=== PATIENT | male | born 1935 | race Caucasian/White ===

== ENCOUNTER 2016-09-05 08:36 | Outpatient (CLI) | payer MEDICARE, OTHER ==
[~2016-09-05] VITALS: Ht 180.3 cm; Wt 105.9 kg
--- NOTE | ~2016-09-05 | HEMODYNAMI ---
PATIENT:JOSUÉ RAMON MEDICAL RECORD: [id number] : 33 LOCATION:[facility] [address] [facility]# [id number] ADMISSION DATE: 09/05/16 Generatedon:09/06/201613:01 Patient name: JOSUÉ RAMON Patient #: [id number] : 1935 Date of study: 09/06/2016 Page: Of Hemodynamic Procedure Report Patient Data Patient Demographics Procedure consent was obtained First Name: JOSUÉ Gender: Male Last Name: TRISTEN : 1935 Middle Initial: F Age: 81 year(s) Patient #: [id number] Race: SSN: [id number] Additional ID: [id number] Contact details Address: [address] [place] [address] [facility] State: [place] City: [place] Zip code: [address] Past Medical History Allergies: No known allergies Admission Admission Data Admission Date: 09/05/2016 Admission Time: 8:36 Arrival Date: 09/05/2016 Arrival Time: 11:00 Admit Source: Other Insurance Payor: Medicare Room #: D.2121 Height (in.): 71 BSA: 2.3 (m2) Height (cm.): 180.34 BMI: 34.17 (kg/m2) Weight (lbs.): 245 Weight (kg.): 111.13 Lab Results Lab Result Date: 09/05/2016 Lab Result Time: 0:00 Biochemistry Name Units Result Min Max BUN mg/dl 22 --(----)-* 7 18 Creatinine mg/dl 1.2 --(---*)-- 0.6 1.3 CBC Name Units Result Min Max Hemoglobin g/dl 14.1 --(*---)-- 13.5 17.5 Procedure Procedure Types Cath Procedure PCI Procedure Coronary Stent Initial Miscellaneous Procedures Moderate Sedation up to 15 minutes Procedure Description Procedure Date Procedure Date: 09/06/2016 Procedure Start Time: 12:42 Procedure End Time: 12:57 Procedure Staff Name Function Chintan Andres MD Performing Physician Juliann Sutton RN Nurse Erich Ventura RT Scrub Jesse Richards RT Monitor Procedure Data Cath Procedure Fluoroscopy Diagnostic fluoroscopy Total fluoroscopy Time: 2.8 time: 2.8 min min Diagnostic fluoroscopy Total fluoroscopy dose: 383 dose: 383 mGy mGy Contrast Material Contrast Material Type Amount (ml) Isovue 300 67 Entry Location Entry Primary Successful Side Size Upsize Upsize Entry Closure Succes sful Closure Location (Fr) 1 (Fr) 2 (Fr) Remarks Device Remarks Femoral Right 6 Fr 7 Fr Exoseal artery Short Short Estimated blood loss: 10 ml Procedure Complications No complications Procedure Medications Medication Administration Route Dosage Oxygen NC 2 l/min Heparin Flush Bag added to field 2 bags (1000units/500ml NS) Lidocaine 2% added to field 20 Versed I.V. 1 mg Fentanyl I.V. 50 mcg Heparin Bolus I.V. 4000 units Versed I.V. 1 mg Fentanyl I.V. 50 mcg Fentanyl I.V. 50 mcg Hemodynamics Rest BSA: 2.3 (m2) HGB: 14.1 (g/dl) O2 Consumption: Estimated: 275.22 (ml/min) O2 Con sumption indexed: Estimated:119.66 (ml/min/m) Heart Rate: 85 (bpm) Snapshots Pre Cath Intra NCS Post Cath Vital Signs Time Heart Resp SPO2 etCO2 RE5sunw NIBP (mmHg) Rhythm Pain Sedation Rate (ipm) (%) (mmHg) (mmHg) Status Level (bpm) 12:35:05 78 15 99 0 0 138/85(117) NSR 0 (11) 10(A) , No pain 12:39:14 82 20 98 0 0 132/89(111) NSR 0 (11) 10(A) , No pain 12:43:26 83 14 97 0 0 145/79(109) NSR 0 (11) 9(A) , No pain 12:47:39 86 16 95 0 0 147/86(142) NSR 0 (11) 9(A) , No pain 12:52:38 84 14 97 0 0 Measuring NSR 0 (11) 9(A) , No pain 12:53:48 85 9 97 0 0 136/94(117) NSR 0 (11) 9(A) , No pain Medications Time Medication Route Dose Verified Delivered Reason Notes Effectiveness by by 12:35:33 Oxygen NC 2 Chintan Juliann Per physician l/min Dmitry Sutton RN 12:35:41 Heparin Flush added 2 Chintan Woodson used for Bag to bags Dmitry Andres MD procedure (1000units/500ml field NS) 12:35:48 Lidocaine 2% added 20ml Chintan Woodson used for to vial Dmitry Andres MD procedure field 12:40:03 Versed I.V. 1 mg Chintan Juliann for sedation Dmitry Sutton RN 12:40:14 Fentanyl I.V. 50 Chintan Juliann for sedation mcg Dmitry Sutton RN 12:42:04 Versed I.V. 1 mg Chintan Juliann for sedation Dmitry Sutton RN 12:42:11 Fentanyl I.V. 50 Chintan Juliann for sedation mcg Dmitry Sutton RN 12:43:47 Heparin Bolus I.V. 4000 Chintan Juliann for dose units Dmitry Sutton RN anticoagulation verified wtih dr andres 12:44:57 Fentanyl I.V. 50 Chintan Juliann for sedation mcg Dmitry Sutton RN Procedure Log Time Note 12:10:51 Jesse Richards RT(R) sent for patient. Start room use. 12:15:39 Patient Height : 71 inches 12:15:40 Patient Weight : 245 lbs 12:15:52 Time tracking: Regular hours 12:15:56 Plan of Care:Hemodynamics will remain stable., Cardiac rhythm will remain stable., Comfort level will be maintained., Respiratory function will remain adequate., Patient/ family verbilizes understanding of procedure., Procedure tolerated without complication., Recovers from procedure without complications.. 12:27:28 Patient received from Pre/Post Procedure Room to CCL 1 Alert and oriented. Tansferred to table in Supine position. 12:27:30 Warm blankets applied, and gulshan hugger turned on for patient comfort. 12:27:30 Correct patient and procedure confirmed by team. 12:27:31 Signed procedure consent form obtained from patient. 12:27:32 ECG and BP/O2 sat monitors applied to patient. 12:33:58 Vital chart was started 12:35:33 Oxygen 2 l/min NC was given by Juliann [place] RN; Per physician; 12:35:41 Heparin Flush Bag (1000units/500ml NS) 2 bags added to field was given by Chintan Andres MD; used for procedure; 12:35:48 Lidocaine 2% 20ml vial added to field was given by Chintan Andres MD; used for procedure; 12:35:48 Baseline sample Acquired. 12:35:52 Rhythm: sinus rhythm 12:35:54 Full Disclosure recording started 12:35:58 H&P Date Dictated: 09/05/2016 Within 30 days and on chart., H&P Addendum completed by physician on day of procedure. (MUST COMPLETE FOR ALL OUTPATIENTS). 12:35:59 Pre-procedure instructions explained to patient. 12:36:00 Pre-op teaching completed and patient verbalized understanding. 12:36:01 Family in waiting room. 12:36:03 Patient NPO since Midnight. 12:36:05 Is the patient allergic to Iodine/contrast media? No. 12:37:16 Is patient on blood thinner?Yes 12:37:19 ACC The patient was administered the following blood thiners within the last 24 hours: ACCPlavix 12:37:21 Patient diabetic? Yes. 12:37:22 If diabetic: On Metformin? Yes 12:37:26 If on Metformin: Last Dose? 09/04/2016 12:37:30 Previous problem with sedation/anesthesia? No ? 12:37:31 Snore? Yes 12:37:33 Sleep apnea? No 12:37:34 Deviated septum? No 12:37:35 Opens mouth fully? Yes 12:37:36 Sticks out tongue? Yes 12:37:37 Airway obstruction? No ? 12:37:40 Dentures? No ? 12:37:43 Pre procedure: right dorsailis pedis pulse 1+ Palpable, but thready & weak; easily obliterated 12:37:45 Patient pain scale 0/10 ?. 12:37:50 IV patent on arrival in left forearm with 0.9% NaCl at [facility] 12:37:52 Lab results completed and on chart. 12:37:56 Right groin area was prepped with chlora-prep and draped in sterile fashion 12:37:57 Alarms reviewed by R. N. 12:37:57 Sharps counted by scrub and verified by R.N. 12:39:26 --------ALL STOP TIME OUT------ 12:39:27 Final Timeout: patient, procedure, and site verified with staff and physician. All members of the team are in agreement. 12:39:30 Right groin site verified by team. 12:39:37 Physical assessment completed. ASA score P 2 - A patient with mild systemic disease as per Chintan Andres MD. 12:39:40 Sedation plan: IV Moderate Sedation Versed, Fentanyl 12:40:03 Versed 1 mg I.V. was given by Juliann Sutton RN; for sedation; 12:40:14 Fentanyl 50 mcg I.V. was given by Juliann Sutton RN; for sedation; 12:42:03 Procedure started. 12:42:04 Versed 1 mg I.V. was given by Juliann Sutton RN; for sedation; 12:42:09 Local anesthetic to right femoral artery with Lidocaine 2% by Chintan Andres MD.INITIAL ACCESS ONLY 12:42:11 Fentanyl 50 mcg I.V. was given by Juliann Sutton RN; for sedation; 12:42:22 Zero performed for pressure channel P1 12:42:24 Zero performed for pressure channel P1 12:42:27 Zero performed for pressure channel P1 12:42:34 Use device set Femoral PCI 12:42:35 Tegaderm 4 x 4 opened to sterile field. 12:42:36 Acist Manifold opened to sterile field. 12:42:37 Acist Syringe opened to sterile field. 12:42:37 Acist Hand Control opened to sterile field. 12:42:38 Bag Decanter opened to sterile field. 12:42:38 Medline Cath Pack opened to sterile field. 12:42:39 Terumo 6Fr [place] Sheath opened to sterile field. 12:42:39 St Ron 260cm J .035 wire opened to sterile field. 12:43:15 Onofre Whisper J 300cm 0.014 guide wire opened to sterile field. 12:43:16 Stoke BasixCompak Inflation Kit opened to sterile field. 12:43:16 Medtronic Launcher 6Fr HS II SH guide catheter opened to sterile field. 12:43:41 A 6 Fr Short sheath was inserted into the Right Femoral artery 12:43:47 Heparin Bolus 4000 units I.V. was given by Juliann Sutton RN; for anticoagulation; dose verified wtih dr andres 12:44:02 ACC PCI Site: Clint has 90% stenosis. 12:44:04 ACC Pre-intervention CINDY Flow is 3. 12:44:11 6 Fr HS 2 SH guide catheter was inserted over the wire 12:44:57 Fentanyl 50 mcg I.V. was given by Juliann Sutton RN; for sedation; 12:45:44 Whisper wire advanced. 12:46:35 Wire advanced across lesion. 12:47:02 The Medtronic Integrity 3.5 X 22 stent was advanced then removed because of failure to cross lesion 12:47:03 Wire removed. 12:47:18 Terumo 7Fr [place] Sheath opened to sterile field. 12:47:18 Medtronic Launcher 7Fr AR 2.0 SH guide catheter opened to sterile field. 12:47:24 Guide Catheter removed. unable to get back-up support 12:47:55 Sheath upsized to a 7 Fr Short. 12:48:02 7 Fr AR 2 SH guide catheter was inserted over the wire 12:48:22 Stanton [employer]Co Choice PT Extra Support J 300cm .014 gu opened to sterile field. 12:48:29 Choice PT XS wire advanced. 12:49:15 Wire advanced across lesion. 12:50:03 Inflation Number: 1 A Medtronic Integrity 3.5 X 22 stent was prepped and advanced across the Dist RCA. The stent was deployed at 17 KATIE for 0:10 (min:sec). 12:50:37 Cordis 7Fr Exoseal opened to sterile field. 12:50:46 Stent catheter was removed intact over wire. 12:50:47 Wire removed. 12:50:48 Guide catheter removed. 12:51:13 Sheath removed intact; hemostasis achieved with Exoseal to the Right Femoral artery. 12:51:16 Procedure ended.(Physican Out) 12:53:48 Fluoroscopy time 02.80 minutes. 12:53:52 Flurop Dose total: 383 12:53:52 Fluoroscopy dose: 383 mGy 12:53:55 Contrast amount:Isovue 300 67ml. 12:53:57 Sharps counted by scrub and verified by R.N. 12:53:59 Insertion/operative site no bleeding no hematoma. 12:54:05 Post-op/insertion site Right Femoral artery dressed using a 4 x 4 and Tegaderm. 12:54:06 Post Procedure Pulses reassessed and unchanged 12:54:09 Post-procedure physical assessment completed. ASA score P 2 - A patient with mild systemic disease as per Chintan Andres MD. 12:54:12 Post procedure rhythm: unchanged. 12:54:13 Estimated blood loss: 10 ml 12:54:21 Post procedure instruction explained to patient.Patient verbalizes understanding. 12:54:21 Patient needs reinforcement of post procedure teaching. 12:54:33 Procedure type changed to Cath procedure, PCI procedure, Coronary Stent Initial, Miscellaneous Procedures, Moderate Sedation up to 15 minutes 12:54:37 Procedure Complication : No complications 12:54:59 Procedure and supply charges have been captured, reviewed, submitted and are correct. 12:56:03 Vital chart was stopped 12:56:04 See physician's report for complete and final results. 12:56:08 Report given to PCU. 12:56:28 Patient transfered to PCU with Bed. 12:57:05 Procedure ended. 12:57:05 Full Disclosure recording stopped 12:57:24 ACC-PCI Only Patient was given prescriptions, or instructed by Chintan Andres MD to start/continue the following medications upon discharge: Plavix 12:57:26 End room use (Document Last) Intervention Summary Intervention Notes Time ActionType Lesion and Equipment Action# Pressure Duration Attributes Used 12:47:02 Discard Medtronic Stent Integrity 3.5 X 22 stent 12:50:03 Place stent Dist RCA Medtronic 1 17 00:10 Integrity 3.5 X 22 stent Device Usage Item Name Manufacture Quantity Catalog Number [facility] Part Current [facility] al Lot# / Charge Number Stock Stock Serial# Code Tegaderm 4 1 [id number] [id number] [id number] 5 x 4 Acist Acist 1 52112 877682 585408 [id number] 5 Manifold [employer] Inc Acist Acist 1 53175 161473 624156 209783 20 Syringe Medical Systems Inc Acist Hand Acist 1 53265 029181 134070 933420 5 Control Medical [employer] Inc Bag Microtek 1 2002S 653493 81614 518258 5 InTown. Medline Cardinal 1 [id number] 540741 80862 397012 5 ADIKTIVO Terumo 6Fr Terumo 1 [id number] 482403 859442 485394 [address] Ron 1 749230 610359 974670 979141 30 260cm J .035 wire Onofre Onofre 1 [id number] 507849 383452 804995 5 Whisper J Vascular 300cm 0.014 guide wire [facility] 1 [id number] 721577 819574 061855 15 BasixCompak Medical Inflation Kit Medtronic Medtronic 1 [id number] 778161 19392 248424 1 Launcher 6Fr HS II SH guide catheter Medtronic Medtronic 1 [id number] 245781 488212 6 [id number] Integrity 3.5 X 22 stent Terumo 7Fr Terumo 1 [id number] 071615 349370 023518 5 [place] Sheath Medtronic Medtronic 1 [id number] 842731 709391 301926 0 Launcher 7Fr AR 2.0 SH guide catheter Stanton Sci Stanton 1 [id number] 281252 822683 594099 5 Choice PT Scientific Extra Support J 300cm .014 gu Cordis 7Fr Cardinal 1 [id number] 914362 822662 356872 5 [facility] Signature Audit [place] Stage Time Signature Unsigned Intra-Procedure 09/06/2016 Jesse Richards 1:01:15 PM RT(R) Signatures Monitor : Jesse Richards RT Signature : Date : Time : [facility] [address] [place] [address]
--- NOTE | ~2016-09-05 | HEMODYNAMI ---
PATIENT:JOSUÉ RAMON MEDICAL RECORD: [id number] : 33 LOCATION:[facility] ADMISSION DATE: 09/05/16 Generatedon:09/05/201612:04 Patient name: JOSUÉ RAMON Patient #: [id number] : 1935 Date of study: 09/05/2016 Page: Of Hemodynamic Procedure Report Patient Data Patient Demographics Procedure consent was obtained First Name: JOSUÉ Gender: Male Last Name: TRISTEN : 1935 [facility] Initial: F Age: 81 year(s) Patient #: [id number] Race: SSN: [id number] Additional ID: [id number] Contact details Address: [address] [place] [address] [facility] State: [place] City: [place] Zip code: [address] Past Medical History Allergies: No known allergies Admission Admission Data Admission Date: 09/05/2016 Admission Time: 8:36 Arrival Date: 09/05/2016 Arrival Time: 11:00 Admit Source: Other Insurance Payor: Medicare Height (in.): 71 BSA: 2.3 (m2) Height (cm.): 180.34 BMI: 34.17 (kg/m2) Weight (lbs.): 245 Weight (kg.): 111.13 Lab Results Lab Result Date: 09/05/2016 Lab Result Time: 0:00 Biochemistry Name Units Result Min Max BUN mg/dl 22 --(----)-* 7 18 Creatinine mg/dl 1.2 --(---*)-- 0.6 1.3 CBC Name Units Result Min Max Hemoglobin g/dl 14.1 --(*---)-- 13.5 17.5 Procedure Procedure Types Cath Procedure Diagnostic Procedure LHC LH w/Coronaries PCI Procedure Coronary Stent Initial Miscellaneous Procedures Moderate Sedation up to 15 minutes Procedure Description Procedure Date Procedure Date: 09/05/2016 Procedure Start Time: 11:39 Procedure End Time: 12:00 Procedure Staff Name Function Chintan Andres MD Performing Physician Billie Quijano RT Scrub Rico Taylor RN Nurse Dalia Enriquez RT Monitor Procedure Data Cath Procedure Fluoroscopy Diagnostic fluoroscopy Total fluoroscopy Time: 6.7 time: 6.7 min min Diagnostic fluoroscopy Total fluoroscopy dose: dose: 1080 mGy 1080 mGy Contrast Material Contrast Material Type Amount (ml) Isovue 300 76 Entry Location Entry Primary Successful Side Size Upsize Upsize Entry Closure Valdovinos ccessful Closure Location (Fr) 1 (Fr) 2 (Fr) Remarks Device Remarks Radial Right 6 Fr Mechanical TR band artery Short Compression Estimated blood loss: 10 ml Procedure Complications No complications Procedure Medications Medication Administration Route Dosage Oxygen NC 2 l/min Lidocaine 2% added to field 20 Heparin Flush Bag added to field 2 bags (1000units/500ml NS) 0.9% NaCl I.V. 100 ml/hr Heparin Bolus I.V. 4000 units Integrilin (Bolus I.V. 10.2 ml 2mg/ml) Versed I.V. 1 mg Fentanyl I.V. 50 mcg Versed I.V. 1 mg Fentanyl I.V. 50 mcg Plavix P.O. 600 mg Hemodynamics Rest BSA: 2.3 (m2) HGB: 14.1 (g/dl) O2 Consumption: Estimated: 267.66 (ml/min) O2 Con sumption indexed: Estimated:116.37 (ml/min/m) Heart Rate: 76 (bpm) Snapshots Pre Cath Intra NCS Post Cath Vital Signs Time Heart Resp SPO2 NIBP (mmHg) Rhythm Pain Sedation Rate (ipm) (%) Status Level (bpm) 11:25:19 79 17 95 108/70(87) NSR 0 (11) 10(A) , No pain 11:30:19 82 15 96 116/79(91) NSR 0 (11) 10(A) , No pain 11:34:22 90 18 97 109/80(90) NSR 0 (11) 10(A) , No pain 11:38:28 72 21 96 123/75(105) NSR 0 (11) 10(A) , No pain 11:42:38 94 16 97 101/73(82) NSR 0 (11) 9(A) , No pain 11:46:38 87 15 94 119/84(101) NSR 0 (11) 9(A) , No pain 11:50:47 90 15 94 114/77(93) NSR 0 (11) 9(A) , No pain 11:54:53 80 15 96 112/79(92) NSR 0 (11) 10(A) , No pain 11:59:34 83 16 98 121/83(109) NSR 0 (11) 10(A) , No pain Medications Time Medication Route Dose Verified Delivered Reason Notes Effectiveness by by 11:30:11 Oxygen NC 2 Chintan Gómez used for l/min Dmitry Taylor RN procedure 11:30:20 Lidocaine 2% added 20ml Chintan Woodson for local to vial Dmitry Andres MD anesthetic field 11:30:30 Heparin Flush added 2 Chintan Chintan used for Bag to bags Dmitry Andres MD procedure (1000units/500ml field NS) 11:30:40 0.9% NaCl I.V. 100 Chintan Gómez Per physician ml/hr Dmitry Taylor RN 11:34:22 Versed I.V. 1 mg Chintan Gómez for sedation Dmitry Taylor RN 11:34:29 Fentanyl I.V. 50 Chintan Gómez for sedation mcg Dmitry Taylor RN 11:39:33 Versed I.V. 1 mg Chintan Gómez for sedation Dmitry Taylor RN 11:39:37 Fentanyl I.V. 50 Chintan Gómez for sedation mcg Dmitry Taylor RN 11:47:16 Heparin Bolus I.V. 4000 Chintan Gómez for verifi ed units Dmitry Taylor RN anticoagulation with dr andres 11:49:26 Integrilin I.V. 10.2 Chintan Gómez for Wasted (Bolus 2mg/ml) ml Dmitry Taylor RN antiplatelet 9.8 ml therapy of vial 12:02:22 Plavix P.O. 600 Chintan Gómez for mg Dmitry Taylor RN antiplatelet therapy Procedure Log Time Note 11:09:28 Informed consent obtained and on chart 11:09:39 Diagnostic Cath Status : Elective 11:10:07 Rico Taylor RN sent for patient. Start room use. 11:10:08 Time tracking: Regular hours 11:10:12 Plan of Care:Hemodynamics will remain stable., Cardiac rhythm will remain stable., Comfort level will be maintained., Respiratory function will remain adequate., Patient/ family verbilizes understanding of procedure., Procedure tolerated without complication., Recovers from procedure without complications.. 11:10:47 Patient Height : 180.34 inches 11:10:47 Admit Source: Other 11:10:56 Patient Weight : 111.13 lbs 11:10:56 Insurance Payor : Medicare 11:11:02 Arrival Date: 09/05/2016 11:00:00 AM 11:14:53 H&P Date Dictated: 08/16/2016 Within 30 days and on chart., H&P Addendum completed by physician on day of procedure. (MUST COMPLETE FOR ALL OUTPATIENTS). 11:18:18 Patient received from Pre/Post Procedure Room to CCL 2 Alert and oriented. Tansferred to table in Supine position. 11:18:19 Warm blankets applied, and gulshan hugger turned on for patient comfort. 11:18:19 Correct patient and procedure confirmed by team. 11:18:20 ECG and BP/O2 sat monitors applied to patient. 11:20:34 Family in waiting room. 11:20:38 Pre-procedure instructions explained to patient. 11:20:39 Pre-op teaching completed and patient verbalized understanding. 11:20:42 Patient NPO since Midnight. 11:21:15 Patient allergic to No known allergies 11:21:19 Is the patient allergic to Iodine/contrast media? No. 11:21:32 Is patient on blood thinner?Yes 11:21:35 ACC The patient was administered the following blood thiners within the last 24 hours: ACCAspirin 11:21:43 Snore? Yes 11:21:56 Sleep apnea? No 11:22:11 Patient diabetic? Yes. 11:22:15 If on Metformin: Last Dose? 09/04/2016 11:22:17 If diabetic: On Metformin? Yes 11:22:42 Dentures? Yes ? 11:22:59 IV patent on arrival in left forearm with 0.9% NaCl at O. 11:23:21 Right Radial & Right Groin area was prepped with chlora-prep and draped in sterile fashion 11:23:22 Sharps counted by scrub and verified by R.N. 11:23:23 Physician paged 11:23:56 Use device set Radial Dx 11:23:57 Acist Syringe opened to sterile field. 11:23:58 Medline Cath Pack opened to sterile field. 11:23:59 Bag Decanter opened to sterile field. 11:24:00 Terumo 6Fr Slender Glidesheath opened to sterile field. 11:24:00 St Ron 260cm J .035 wire opened to sterile field. 11:24:01 Acist Hand Control opened to sterile field. 11:24:02 Acist Manifold opened to sterile field. 11:24:03 Tegaderm 4 x 4 opened to sterile field. 11:24:15 Vital chart was started 11::18 Baseline sample Acquired. ::24 Rhythm: sinus rhythm 11::26 Full Disclosure recording started : Lab Result : Creatinine 1.2 mg/dl :: Lab Result : BUN 22 mg/dl :: Lab Result : Hemoglobin 14.1 g/dl 11::34 Lab results completed and on chart. 11:30:11 Oxygen 2 l/min NC was given by Rico Taylor RN; used for procedure; 11:30:20 Lidocaine 2% 20ml vial added to field was given by Chintan Andres MD; for local anesthetic; 11:30:30 Heparin Flush Bag (1000units/500ml NS) 2 bags added to field was given by Chintan Andres MD; used for procedure; 11:30:40 0.9% NaCl 100 ml/hr I.V. was given by Rico Taylor RN; Per physician; 11:32:07 Physician arrived 11:33:11 --------ALL STOP TIME OUT------ 11:33:12 Final Timeout: patient, procedure, and site verified with staff and physician. All members of the team are in agreement. 11:33:14 Right Radial & Right Groin site verified by team. 11:33:18 Physical assessment completed. ASA score P 2 - A patient with mild systemic disease as per Chintan Andres MD. 11:33:21 Sedation plan: IV Moderate Sedation Versed, Fentanyl 11:34:22 Versed 1 mg I.V. was given by Rico Taylor RN; for sedation; :34:29 Fentanyl 50 mcg I.V. was given by Rico Taylor RN; for sedation; 11:36:18 Zero performed for pressure channel P1 11:38:57 Procedure started. 11:39:03 Local anesthetic to right radial artery with Lidocaine 2% by Chintan Andres MD.INITIAL ACCESS ONLY 11:39:33 Versed 1 mg I.V. was given by Rico Taylor RN; for sedation; 11:39:33 A 6 Fr Short sheath was inserted into the Right Radial artery 11:39:37 Fentanyl 50 mcg I.V. was given by Rico Taylor RN; for sedation; 11:41:53 NO CHARGE cordis radial cath advanced 11:42:44 LV gram done using MENARD 11:42:47 LV angiography performed. 11:43:05 EF : 55 % 11:43:27 RCA angiography performed. 11:43:43 Catheter removed. 11:44:43 Cordis 6FR XBLAD 3.5 guide catheter opened to sterile field. 11:44:57 LCA angiography performed. 11:45:13 Proceeding to intervention. 11:45:57 Merit BasixCompak Inflation Kit opened to sterile field. 11:46:33 Onofre Whisper J 300cm 0.014 guide wire opened to sterile field. 11:46:34 Onofre Whisper J 300cm 0.014 guide wire opened to sterile field. 11:47:16 Heparin Bolus 4000 units I.V. was given by Rico Taylor RN; for anticoagulation; verified with dr andres 11:47:37 6 Fr XBLAD 3.5 guide catheter was inserted over the wire 11:47:41 Whisper wire advanced. 11:48:29 Wire advanced across lesion. 11:49:26 Integrilin (Bolus 2mg/ml) 10.2 ml I.V. was given by Rico Taylor RN; for antiplatelet therapy; Wasted 9.8 ml of vial 11:52:06 Inflation Number: 1 A Medtronic Resolute 2.25 X 14 stent was prepped and advanced across the 1st Diag. The stent was deployed at 17 KATIE for 0:10 (min:sec). 11:52:29 Stent balloon re-inserted over wire. 11:52:48 balloon advanced to LAD. 11:53:23 Inflation number: 1 The stent balloon was then re-inflated across the Prox LAD to 17 KATIE for 0:10 (min:sec). 11:53:40 Inflation number: 2 The stent balloon was then re-inflated across the Prox LAD to 13 KATIE for 0:10 (min:sec). 11:53:59 Inflation number: 3 The stent balloon was then re-inflated across the Prox LAD to 19 KATIE for 0:00 (min:sec). 11:54:28 Balloon removed over the wire. 11:56:18 Inflation Number: 4 A Medtronic Resolute 2.5 X 18 stent was prepped and advanced across the Prox LAD. The stent was deployed at 13 KATIE for 0:10 (min:sec). 11:57:17 Wire removed. 11:57:18 Guide catheter removed. 11:58:42 Terumo TR Band Standard opened to sterile field. 11:58:59 Sheath removed intact; hemostasis achieved with Mechanical Compression to the Right Radial artery. 11:59:03 Procedure ended.(Physican Out) 11:59:18 Fluoroscopy time 06.70 minutes. 11:59:26 Fluoroscopy dose: 1080 mGy 11:59:26 Flurop Dose total: 1080 11:59:37 Contrast amount:Isovue 300 76ml. 11:59:47 Sharps counted by scrub and verified by R.N. 11:59:51 TR band inflated with 12cc of air. 11:59:57 Insertion/operative site no bleeding no hematoma. 12:00:00 Post Procedure Pulses reassessed and unchanged 12:00:04 Post procedure rhythm: unchanged. 12:00:07 Estimated blood loss: 10 ml 12:00:09 Post procedure instruction explained to patient.Patient verbalizes understanding. 12:00:22 Procedure type changed to Cath procedure, Diagnostic procedure, LHC, LHC w/Coronaries, PCI procedure, Coronary Stent Initial, Miscellaneous Procedures, Moderate Sedation up to 15 minutes 12:00:23 Procedure and supply charges have been captured, reviewed, submitted and are correct. 12:00:45 Procedure Complication : No complications 12:00:47 Vital chart was stopped 12:00:48 See physician's report for complete and final results. 12:00:51 Report given to Med II. 12:00:54 Patient transfered to Med II with Bed. 12:00:56 Procedure ended. 12:00:56 Full Disclosure recording stopped 12::56 End room use (Document Last) 12:02:22 Plavix 600 mg P.O. was given by Rico Taylor RN; for antiplatelet therapy; Intervention Summary Intervention Notes Time ActionType Lesion and Equipment Action# Pressure Duration Attributes Used 11:52:06 Place stent 1st Diag Medtronic 1 17 00:10 Resolute 2.25 X 14 stent 11:53:23 Reinflate Prox LAD Medtronic 1 17 00:10 stent Resolute balloon 2.25 X 14 stent 11:53:40 Reinflate Prox LAD Medtronic 2 13 00:10 stent Resolute balloon 2.25 X 14 stent 11:53:59 Reinflate Prox LAD Medtronic 3 19 00:00 stent Resolute balloon 2.25 X 14 stent 11:56:18 Place stent Prox LAD Medtronic 4 13 00:10 Resolute 2.5 X 18 stent Device Usage Item Name Manufacture Quantity Catalog Hospital Part Current Minimal Lot# / Number Charge Number Stock Stock Serial# Code Acist Acist 1 [id number] [id number] 100044 089125 20 Syringe Medical Systems Inc Medline Cardinal 1 [id number] 10374 174291 5 Cath Pack Health Bag Microtek 1 2002S 583535 71514 874000 5 Ganos Inc. Terumo 6Fr Terumo 1 [id number] 530466 083121 966454 [address] Ron St Ron 1 707134 101746 836252 506398 30 260cm J .035 wire Acist Hand Acist 1 89838 624626 574780 735640 5 [facility] Medical Systems Inc Acist Acist 1 25316 536513 380750 355357 5 Marquee [employer] Inc Medical Systems Inc Tegaderm 4 3M 1 1626W 600506 680070 769545 5 x 4 Cordis 6FR Cardinal 1 [id number] 254555 802560 336701 10 XBLAD 3.5 Health guide catheter Merit Merit 1 [id number] 530170 117527 122357 15 BasixCommdk Medical Inflation Kit Onofre Onofre 2 [id number] 717404 323024 697368 5 Whisper J Vascular 300cm 0.014 guide wire Medtronic Medtronic 1 [id number] 214454 043153 6 [id number] Resolute 2.25 X 14 stent Medtronic Medtronic 1 [id number] 338401 161010 0 [id number] Resolute 2.5 X 18 stent Terumo TR Terumo 1 [id number] 458224 737363 155554 40 Band Standard Signature Audit [place]enn[place] Stage Time Signature Unsigned Intra-Procedure 09/05/2016 Dalia Enriquez 12:04:21 PM RT(R) Signatures Monitor : Dalia Enriquez Signature : RT Date : Time : [place] [id number]
[~2016-09-05 08:36] MED LIST: ASPIRIN EC81 M1 PO; FLOMAX0.4 MG PO; GEMFIBROZIL600 MG PO; GLUCOPHAGE1000 MG PO
[2016-09-05] MEDS ORDERED: TENORMIN50 MG PO (09:05)
[2016-09-05] MEDS ORDERED: PROTONIX40 MG PO (09:06)
[2016-09-05] MEDS ORDERED: LISINOPRIL10 MG PO (09:06)
[2016-09-05 09:09] VITALS: BP 125/80; BMI 34.2
[2016-09-05 09:25] LABS: BASOPHILS 0.3 % (0.0-2.0); EOSINOPHILS 3.9 % (0-7); HEMATOCRIT 42.6 % (42.0-54.0); HEMOGLOBIN 14.1 g/dL (13.5-17.5); IMMATURE GRANULOCYTES 0.7 % (0-5); LYMPHOCYTES 31.2 % (15-50); MCH 31.2 pg (26.0-34.0); MCHC 33.1 g/dL (31.0-37.0); MCV 94.2 fL (80.0-100.0); MEAN PLATELET VOLUME 10.3 fL (7.4-10.4); MONOCYTES 11.7 % (2-11); NEUTROPHILS 52.2 % (40-80); RBC 4.52 10x6/uL (4.20-6.10); RDW 13.6 % (11.5-14.5); WBC 7.2 10x3/uL (4.8-10.8)
[2016-09-05 09:27] LABS: PLATELET COUNT 209 10x3/uL (130-400)
[2016-09-05 09:44] LABS: ANION GAP 14.1 mmol/L (8-16); CALCIUM 9.2 mg/dL (8.5-10.1); CARBON DIOXIDE 27.3 mmol/L (21.0-32.0); CREATININE - SERUM 1.2 mg/dL (0.6-1.3); POTASSIUM - SERUM 4.4 mmol/L (3.5-5.1)
--- NOTE | 2016-09-05 12:31 | NUR ---
TRANSFER FROM LABEL PRINTER. VS WNL. RIGHT WRIST STABLE WITH TR BAND INTACT. WILL MONITOR.
[2016-09-05 13:11] VITALS: BP 111/67; Ht 180.3 cm; Wt 105.9 kg
[2016-09-05 16:01] VITALS: BP 144/75
--- NOTE | 2016-09-05 16:12 | NUR ---
TR BAND DCD WITHOUT BLEEDING OR HEMATOMA NOTED. WILL MONITOR.
--- NOTE | 2016-09-05 19:19 | NUR ---
RECEIVED REPORT, 2L, [id number], [id number], DENIES ANY NEEDS, BED IS LOW, SRX2,CALL LIGHT IN REACH, WILL CONTINUE TO MONITOR
[2016-09-05 20:36] VITALS: BP 154/72
--- NOTE | 2016-09-05 23:38 | NUR ---
MACHINE MILKER AT BEDSIDE FOR VS, NEEDS ADDRESSED AT THIS TIME. CALL LIGHT IN REACH. CONT TO MONITOR.
[2016-09-06 01:19] VITALS: BP 141/75
[2016-09-06 05:06] VITALS: BP 165/96
--- NOTE | 2016-09-06 05:46 | NUR ---
PT HAS BEEN NPO SINCE MIDNIGHT, DENIES ANY NEEDS, CALL LIGHT IN REACH
[2016-09-06 08:12] VITALS: BP 146/83
[2016-09-06 12:14] VITALS: BP 153/92
--- NOTE | 2016-09-06 12:19 | NUR ---
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
--- NOTE | 2016-09-06 13:22 | NUR ---
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 VS WNL. RIGHT GROIN STABLE WITHOUT BLEEDING OR HEMATOMA NOTED. WILL MONITOR.
[2016-09-06] MEDS ORDERED: PLAVIX75 MG PO (13:40)
--- NOTE | 2016-09-06 16:47 | OP ---
PATIENT NAME: JOSUÉ RAMON MEDICAL RECORD: [id number] :33 LOCATION:D.M2 D.2121 ADMISSION DATE: SURGEON: DANUTA HERNANDEZ MD DATE OF OPERATION: 09/05/2016 PROCEDURES: 1. PTCA stent LAD. 2. PTCA stent LAD diagonal. 3. Left heart catheterization. 4. Selective coronary angiography. 5. Left ventriculogram. INDICATION: Angina and coronary artery disease. PROCEDURE IN DETAIL: After informed consent was obtained and after detailed explanation of risks, benefits as well as alternative therapies, the patient elected to proceed with angiogram and angioplasty. The right radial area was prepped and draped in normal sterile fashion. Right radial artery was cannulated via modified Seldinger technique with placement of 6-Spanish sheath. All catheters exchanged through this sheath. FINDINGS: The left ventriculogram was performed in standard 30-degree MENARD view, reveals preserved cardiac wall motion, ejection fraction 50%. SELECTIVE CORONARY ANGIOGRAPHY: 1. Left main showed no significant angiographic disease. 2. Left anterior descending as well as diagonal, both at 80% stenosis proximally. 3. Left circumflex has 90% stenosis in the mid vessel. 4. Right coronary has 80% to 90% stenosis times 2 in the mid and distal vessel. PTCA STENT OF THE LAD AND LAD DIAGONAL: The LAD diagonal was addressed with a 2.25 x 14 mm Resolute and the LAD with a 2.5 x 18 mm Resolute. Result was 0% residual stenosis. OVERALL IMPRESSION: Successful percutaneous transluminal coronary angioplasty stent of the left anterior descending and left anterior descending diagonal going from 80+ percent initial stenosis to 0% residual. PLAN: PTCA stent of the RCA and left circumflex in the near future in a staged fashion. 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
--- NOTE | 2016-09-06 16:59 | NUR ---
BED REST UP. GROIN STABLE. IV AND TELEMETRY DCD. DC PLANS GIVEN. UNDERSTANDING VOICED. ESCORTED TO CAR BY W/C.
--- NOTE | 2016-09-06 17:23 | NUR ---
ESCORTED TO CAR BY W/C.
--- NOTE | 2016-09-19 10:08 | OP ---
PATIENT NAME: JOSUÉ RAMON MEDICAL RECORD: [id number] :33 LOCATION:D.CAT ADMISSION DATE: SURGEON: DANUTA HERNANDEZ MD DATE OF OPERATION: 09/06/2016 PROCEDURES: 1. PTCA stent RCA. 2. Selective coronary angiography. INDICATION: Angina and coronary artery disease. PROCEDURE IN DETAIL: After informed consent was obtained and after a detailed explanation of the risks, benefits as well as alternative therapies, the patient elected to proceed with angiogram and angioplasty. The right femoral area was prepped and draped in normal sterile fashion. Right femoral artery was cannulated via modified Seldinger technique with placement of a 7-Croatian sheath. All catheters exchanged through this sheath. FINDINGS: Left ventriculogram was performed in standard 30-degree MENARD view, reveals good cardiac wall motion throughout all segments. The right coronary has 80%-90% stenosis distally, it was addressed with a 3.5 x 22 mm Integrity stent. Result was 0% residual stenosis. OVERALL IMPRESSION: Successful percutaneous transluminal coronary angioplasty stent of the RCA going from 80% to 90% initial stenosis to 0% residual. TRANSINT:[id number] Voice Confirmation ID: [id number] DOCUMENT ID: [id number] DANUTA HERNANDEZ MD at 1008 CC: [id number] DICTATION DATE: 09/06/16 1254 BUTTER GRADER: 09/06/164 [facility] CLI 09/06/16 [place] [id number]
--- NOTE | 2016-09-19 10:08 | DS ---
PATIENT:JOSUÉ RAMON :33 MEDICAL RECORD: [id number] DISCHARGE SUMMARY ADMISSION DATE: 09/05/16 DISCHARGE DATE: 09/06/16 DISCHARGE DIAGNOSES: 1. Angina. 2. Coronary artery disease. 3. Percutaneous transluminal coronary angioplasty stent left anterior descending and right coronary artery this admission. HOSPITAL COURSE: This is a gentleman who presents with anginal symptomatology, found to have 3-vessel coronary artery disease, underwent successful PTCA stent of above territories, had no further chest pain and was discharged home with the addition of aspirin and Plavix to his medical regimen. We will follow up with [facility] in 1 month. TRANSINT:[id number] Voice Confirmation ID: [id number] DOCUMENT ID: [id number] DANUTA HERNANDEZ MD at 1008 CC: [id number] DICTATION DATE: 09/06/16 1252 VICE PRESIDENT OF SOFTWARE ENGINEERING: 09/07/16 0338 [facility] CLI 09/06/16 [place] [id number] [place] [address]
== END 2016-09-06 17:24 | disposition home or self-care (01) ==
LOC: D.CATH 08:36 → D.M2 08:36 → D.CATH 11:00 → D.M2 12:19 → D.CATH 09-06 17:24
PROVIDERS: Internal Medicine Interventional Cardiology
DX: I25.119 Atherosclerotic heart disease of native coronary artery with unspecified angina pectoris (principal)
CPT/HCPCS: 93458; 92928; C9600; C9601

== ENCOUNTER 2016-09-16 08:43 | Outpatient (CLI) | payer MEDICARE, OTHER ==
[~2016-09-16] VITALS: Ht 180.3 cm; Wt 111.4 kg
--- NOTE | ~2016-09-16 | HEMODYNAMI ---
PATIENT:JOSUÉ RAMON MEDICAL RECORD: [id number] : 33 LOCATION:[facility] ADMISSION DATE: 09/16/16 Generatedon:09/16/201612:37 Patient name: JOSUÉ RAMON Patient #: [id number] : 1935 Date of study: 09/16/2016 Page: Of Hemodynamic Procedure Report Patient Data Patient Demographics Procedure consent was obtained First Name: JOSUÉ Gender: Male Last Name: TRISTEN : 1935 [facility] Initial: F Age: 81 year(s) Patient #: [id number] Race: SSN: [id number] Additional ID: [id number] Contact details Address: [address] [place] [address] [facility] State: [place] City: [place] Zip code: [address] Past Medical History Allergies: No known allergies Admission Admission Data Admission Date: 09/16/2016 Admission Time: 8:43 Lab Results Lab Result Date: 09/16/2016 Lab Result Time: 0:00 Biochemistry Name Units Result Min Max Creatinine mg/dl 1.4 --(----)*- 0.6 1.3 CBC Name Units Result Min Max Hemoglobin g/dl 14.2 --(*---)-- 13.5 17.5 Procedure Procedure Types Cath Procedure PCI Procedure Coronary Stent Initial Miscellaneous Procedures Moderate Sedation up to 30 minutes Procedure Description Procedure Date Procedure Date: 09/16/2016 Procedure Start Time: 12:16 Procedure End Time: 12:37 Procedure Staff Name Function Chintan Andres MD Performing Physician Mauricio Dubois RT Scrub Rico Taylor RN Nurse Mary Apple RT Monitor Procedure Data Cath Procedure Fluoroscopy Diagnostic fluoroscopy Total fluoroscopy dose: dose: 860.81 mGy 860.81 mGy Contrast Material Contrast Material Type Amount (ml) Isovue 300 76 Entry Location Entry Primary Successful Side Size Upsize Upsize Entry Closure Succes sful Closure Location (Fr) 1 (Fr) 2 (Fr) Remarks Device Remarks Femoral Right 6 Fr Exoseal artery Short Estimated blood loss: 10 ml Procedure Complications No complications Procedure Medications Medication Administration Route Dosage Oxygen NC 2 l/min Lidocaine 2% added to field 20 Heparin Flush Bag added to field 2 bags (1000units/500ml NS) 0.9% NaCl I.V. 100 ml/hr Versed I.V. 1 mg Fentanyl I.V. 50 mcg Radial Cocktail I.A. 1 syringe (Verapomil 2mg/Nitro 400mcg/Heparin 1500units) Versed I.V. 1 mg Fentanyl I.V. 50 mcg Versed I.V. 1 mg Fentanyl I.V. 50 mcg Heparin Bolus I.V. 4000 units Fentanyl I.V. 50 mcg Hemodynamics Rest Pre Cath Intra NCS Post Cath Vital Signs Time Heart Resp SPO2 etCO2 HG4gtsg NIBP (mmHg) Rhythm Pain Sedation Rate (ipm) (%) (mmHg) (mmHg) Status Level (bpm) 12:06:01 72 18 98 0 0 120/66(99) NSR 0 (11) 10(A) , No pain 12:10:13 71 17 97 0 0 128/65(104) NSR 0 (11) 10(A) , No pain 12:14:25 76 18 97 0 0 122/78(104) NSR 0 (11) 10(A) , No pain 12:18:31 75 16 99 0 0 131/85(100) NSR 0 (11) 9(A) , No pain 12:22:43 83 16 96 0 0 122/79(115) NSR 0 (11) 9(A) , No pain 12:26:47 84 18 95 0 0 111/84(108) NSR 0 (11) 9(A) , No pain 12:31:33 92 17 95 0 0 118/73(112) NSR 0 (11) 9(A) , No pain 12:33:57 88 16 96 0 0 120/76(97) NSR 0 (11) 10(A) , No pain Medications Time Medication Route Dose Verified Delivered Reason Note s Effectiveness by by 12:04:31 Oxygen NC 2 l/min Chintan Gómez used for Dmitry Taylor health professional 12:04:38 Lidocaine 2% added 20ml Chintan Woodson for local to vial Dmitry Andres MD anesthetic field 12:04:44 Heparin Flush added 2 bags Chintan Woodson used for Bag to Dmitry Andres MD procedure (1000units/500ml field NS) 12:04:54 0.9% NaCl I.V. 100 Chintan Gómez Per physician ml/hr Dmitry Taylor RN 12:13:42 Versed I.V. 1 mg Chintan Gómez for sedation Dmitry Taylor RN 12:13:48 Fentanyl I.V. 50 mcg Chintan Gómez for sedation Dmitry Taylor RN 12:16:46 Versed I.V. 1 mg Chintan Irizarryie for sedation Dmitry Taylor RN 12:16:49 Fentanyl I.V. 50 mcg Chintan Gómez for sedation Dmitry Taylor RN 12:19:25 Radial Cocktail I.A. 1 Chintan Woodson for (Verapomil syringe Dmitry Andres MD vasodilation 2mg/Nitro 400mcg/Heparin 1500units) 12:19:30 Versed I.V. 1 mg Chintan Gómez for sedation Dmitry Taylor RN 12:19:34 Fentanyl I.V. 50 mcg Chintan Gómez for sedation Dmitry Taylor RN 12:22:29 Heparin Bolus I.V. 4000 Chintan Gómez for veri fied units Dmitry Taylor RN anticoagulation with dr andres 12:27:51 Fentanyl I.V. 50 mcg Chintan Gómez for sedation Dmitry Taylor RN Procedure Log Time Note 11:51:26 PCI Cath Status : Elective 11:51:47 Rico Taylor RN sent for patient. Start room use. 11:51:48 Time tracking: Regular hours 11:51:51 Plan of Care:Hemodynamics will remain stable., Cardiac rhythm will remain stable., Comfort level will be maintained., Respiratory function will remain adequate., Patient/ family verbilizes understanding of procedure., Procedure tolerated without complication., Recovers from procedure without complications.. 11:56:23 Patient received from Pre/Post Procedure Room to CCL 1 Alert and oriented. Tansferred to table in Supine position. 11:56:25 Warm blankets applied, and gulshan hugger turned on for patient comfort. 11:56:25 Correct patient and procedure confirmed by team. 11:56:26 Signed procedure consent form obtained from patient. 11:56:27 ECG and BP/O2 sat monitors applied to patient. 11:56:28 Full Disclosure recording started 12:04:31 Oxygen 2 l/min NC was given by Rico Taylor RN; used for procedure; 12:04:38 Lidocaine 2% 20ml vial added to field was given by Chintan Andres MD; for local anesthetic; 12:04:44 Heparin Flush Bag (1000units/500ml NS) 2 bags added to field was given by Chintan Andres MD; used for procedure; 12:04:54 0.9% NaCl 100 ml/hr I.V. was given by Rico Taylor RN; Per physician; 12:04:58 Vital chart was started 12:08:58 Rhythm: sinus rhythm 12:09:04 H&P Date Dictated: 09/16/2016 Within 30 days and on chart., H&P Addendum completed by physician on day of procedure. (MUST COMPLETE FOR ALL OUTPATIENTS). 12:09:05 Pre-procedure instructions explained to patient. 12:09:06 Pre-op teaching completed and patient verbalized understanding. 12:09:07 Family in waiting room. 12:09:09 Patient NPO since Midnight. 12:09:16 Is the patient allergic to Iodine/contrast media? No. 12:09:17 Is patient on blood thinner?Yes 12:09:19 ACC The patient was administered the following blood thiners within the last 24 hours: ACCPlavix 12:09:25 Patient diabetic? Yes. 12:09:26 If diabetic: On Metformin? Yes 12:09:29 If on Metformin: Last Dose? 09/14/2016 12:09:33 Previous problem with sedation/anesthesia? No ? 12:09:35 Snore? Yes 12:09:36 Sleep apnea? Yes 12:09:44 Deviated septum? No 12:09:45 Opens mouth fully? Yes 12:09:46 Sticks out tongue? Yes 12:09:49 Airway obstruction? Yes Asthma 12:10:07 Dentures? No ? 12:10:18 Pre procedure: left dorsailis pedis pulse 2+ Normal; easily identifiable; not easily obliterated 12:10:20 Modified Reinier's test Ulnar < 7 seconds 12:10:22 Patient pain scale 0/10 ?. 12:10:31 IV patent on arrival in left hand with 0.9% NaCl at [facility]. 12:10:54 Lab Result : Creatinine 1.4 mg/dl 12:10:54 Lab Result : Hemoglobin 14.2 g/dl 12:10:59 Lab results completed and on chart. 12:11:04 Right Radial & Left Groin area was prepped with chlora-prep and draped in sterile fashion 12:11:07 Alarms reviewed by R. N. 12:11:07 Sharps counted by scrub and verified by R.N. 12:11:11 Use device set Radial PCI 12:11:12 Acist Syringe opened to sterile field. 12:11:12 Acist Hand Control opened to sterile field. 12:11:13 Bag Decanter opened to sterile field. 12:11:13 Medline Cath Pack opened to sterile field. 12:11:14 Merit BasixCompak Inflation Kit opened to sterile field. 12:11:14 Terumo 6Fr Slender Glidesheath opened to sterile field. 12:11:14 St Ron 260cm Straight .035 wire opened to sterile field. 12:11:15 Acist Manifold opened to sterile field. 12:11:15 Tegaderm 4 x 4 opened to sterile field. 12:11:24 Onofre Whisper J 300cm 0.014 guide wire opened to sterile field. 12:12:24 Final Timeout: patient, procedure, and site verified with staff and physician. All members of the team are in agreement. 12:12:28 Right Radial site verified by team. 12:12:31 Physical assessment completed. ASA score P 2 - A patient with mild systemic disease as per Chintan Andres MD. 12:12:39 Sedation plan: IV Moderate Sedation Versed, Fentanyl 12:13:42 Versed 1 mg I.V. was given by Rico Taylor RN; for sedation; 12:13:48 Fentanyl 50 mcg I.V. was given by Rico Taylor RN; for sedation; 12:16:12 Procedure started. 12:16:19 Local anesthetic to right femoral artery with Lidocaine 2% by Chintan Andres MD.INITIAL ACCESS ONLY 12:16:46 Versed 1 mg I.V. was given by Rico Taylor RN; for sedation; 12:16:49 Fentanyl 50 mcg I.V. was given by Rico Taylor RN; for sedation; 12:19:25 Radial Cocktail (Verapomil 2mg/Nitro 400mcg/Heparin 1500units) 1 syringe I.A. was given by Chintan Andres MD; for vasodilation; 12::30 Versed 1 mg I.V. was given by Rico Taylor RN; for sedation; 12::34 Fentanyl 50 mcg I.V. was given by Rico Taylor RN; for sedation; 12:20:12 A 6 Fr Short sheath was inserted into the Right Femoral artery 12::34 6 Fr XBLAD 3.5 guide catheter was inserted over the wire 12:20:41 Zero performed for pressure channel P1 12:21:04 Zero performed for pressure channel P1 12:21:07 Zero performed for pressure channel P1 12::50 Guide Catheter removed. unable to cannulate vessel. 12::29 Heparin Bolus 4000 units I.V. was given by Rico Taylor RN; for anticoagulation; verified with dr andres 12:23:26 Whisper wire advanced. 12:24:29 Inflation number: 1 A Baxter Zmanda Tompkins 2.0 X 20 balloon was prepped and advanced across the 1st Ob Mimi, then inflated to 13 KATIE for 0:07 (min:sec). 12:27:51 Fentanyl 50 mcg I.V. was given by Rico Taylor RN; for sedation; 12:28:00 Balloon removed over the wire. 12:29:24 Inflation Number: 2 A Alloptictronic Resolute 2.25 X 18 Stent was prepped and advanced across the 1st Ob Mimi. The stent was deployed at 11 KATIE for 0:04 (min:sec). 12:29:56 Stent catheter was removed intact over wire. 12::57 Wire removed. 12:29:58 Guide catheter removed. 12:30:06 Cordis 6Fr Exoseal opened to sterile field. 12:30:16 Sheath removed intact; hemostasis achieved with Exoseal to the Right Femoral artery. 12:30:18 Procedure ended.(Physican Out) 12:34:00 Flurop Dose total: 860.81 12:34:00 Fluoroscopy dose: 860.81 mGy 12:34:10 Contrast amount:Isovue 300 76ml. 12:34:11 Sharps counted by scrub and verified by R.N. 12:34:12 Insertion/operative site no bleeding no hematoma. 12:34:16 Post-op/insertion site Left Femoral artery dressed using a 4 x 4 and Tegaderm. 12:34:20 Post left femerol artery:stable, clean and dry 12:34:22 Post Procedure Pulses reassessed and unchanged 12:34:26 Post-procedure physical assessment completed. ASA score P 2 - A patient with mild systemic disease as per Chintan Andres MD. 12:34:28 Post procedure rhythm: unchanged. 12:34:31 Estimated blood loss: 10 ml 12:34:33 Post procedure instruction explained to patient.Patient verbalizes understanding. 12:34:33 Patient needs reinforcement of post procedure teaching. 12:34:47 Procedure type changed to Cath procedure, PCI procedure, Coronary Stent Initial, Miscellaneous Procedures, Moderate Sedation up to 30 minutes 12:34:52 Procedure Complication : No complications 12:34:55 See physician's report for complete and final results. 12:35:44 Cordis 6FR XBLAD 3.5 guide catheter opened to sterile field. 12:35:45 Cordis 6FR XBLAD 4.0 guide catheter opened to sterile field. 12:36:59 Procedure and supply charges have been captured, reviewed, submitted and are correct. 12:37:01 Vital chart was stopped 12:37:02 Report given to Pre/Post Procedure Room. 12:37:11 Patient transfered to Pre/Post Procedure Room with Stretcher. 12:37:21 Procedure ended. 12:37:21 Full Disclosure recording stopped 12:37:24 End room use (Document Last) Intervention Summary Intervention Notes Time ActionType Lesion and Equipment Action# Pressure Duration Attributes Used 12:24:29 Inflate 1st Ob Mimi Baxter 1 13 00:08 balloon Sci Tompkins 2.0 X 20 balloon 12:29:24 Place stent 1st Ob [facility] Medtronic 2 11 00:04 Resolute 2.25 X 18 Stent Device Usage Item Name Manufacture Quantity Catalog Number Hospital Part Current Mini mal Lot# / Charge Number Stock Stock Serial# Code Acist Acist 1 18559 [id number] 047159 934563 20 Syringe Medical Systems Inc Acist Hand Acist 1 85174 926257 398527 453205 5 Control Medical Systems Inc Bag Microtek 1 2002S 303970 15852 650025 5 FaceAlerta. Medline Cardinal 1 [id number] 117206 24888 133788 5 FlyReadyJet [facility] Merit Merit 1 [id number] 151024 690928 754106 15 BasixCompaRaptr Medical Inflation Kit Terumo 6Fr Terumo 1 [id number] 901603 184429 878212 [address] Ron St Ron 1 490850 808570 071612 323753 1 260cm Straight .035 wire Acist Acist 1 43746 959337 867973 177689 5 Furnish.co.[employer] Systems Inc Tegaderm 4 3M 1 1626W 980104 064966 505088 5 x 4 Onofre Onofre 1 [id number] 124257 433275 561092 5 Whisper J Vascular 300cm 0.014 guide wire Baxter Sci Baxter 1 [id number] 668056 480172 823644 1 [id number] [employer] 2.0 X 20 balloon Medtronic Medtronic 1 [id number] 648696 895562 1 [id number] Resolute 2.25 X 18 Stent Cordis 6Fr Cardinal 1 EX600 423625 465828 639383 10 Exoseal Health Cordis 6FR Cardinal 1 [id number] 053681 457745 135304 10 XBLAD 3.5 Health guide catheter Cordis 6FR Cardinal 1 [id number] 315829 430832 273897 3 XBLAD 4.0 Health guide catheter Signature Audit Munger Stage Time Signature Unsigned Intra-Procedure 09/16/2016 Mary 12:37:34 PM Counts RT(R) Signatures Monitor : Mary Signature : Counts RT Date : Time : [facility] [address] [place] [address]
[~2016-09-16 08:43] MED LIST changes: +LISINOPRIL10 MG PO; +PLAVIX75 MG PO; +PROTONIX40 MG PO; +TENORMIN50 MG PO
[2016-09-16 09:03] VITALS: BP 125/71; Ht 180.3 cm; Wt 111.4 kg
[2016-09-16 09:15] LABS: BASOPHILS 0.4 % (0.0-2.0); EOSINOPHILS 4.4 % (0-7); HEMATOCRIT 42.7 % (42.0-54.0); HEMOGLOBIN 14.2 g/dL (13.5-17.5); IMMATURE GRANULOCYTES 0.9 % (0-5); MCHC 33.3 g/dL (31.0-37.0); MCV 93.2 fL (80.0-100.0); MEAN PLATELET VOLUME 9.6 fL (7.4-10.4); NEUTROPHILS 54.3 % (40-80); PLATELET COUNT 239 10x3/uL (130-400); RBC 4.58 10x6/uL (4.20-6.10); RDW 13.5 % (11.5-14.5); WBC 7.7 10x3/uL (4.8-10.8)
[2016-09-16 09:26] LABS: ANION GAP 14.3 mmol/L (8-16); CALCIUM 9.4 mg/dL (8.5-10.1); CREATININE - SERUM 1.4 mg/dL (0.6-1.3); POTASSIUM - SERUM 5.3 mmol/L (3.5-5.1)
--- NOTE | 2016-09-16 09:37 | NUR ---
0925 PT HAS NOT TAKEN PLAVIX SINCE MONDAY AM, DR HERNANDEZ NOTIFIED BY LUISA ROMO RN AND NEW ORDER RECEIVED FOR PLAVIX 600 MG X1 PO NOW.
--- NOTE | 2016-09-16 13:11 | NUR ---
1300-LEFT GROIN CDI, NO HEMATOMA OR BLEEDING NOTED
--- NOTE | 2016-09-16 13:49 | NUR ---
1330-LEFT GROIN REMAINS CDI, NO CHANGES
--- NOTE | 2016-09-19 10:08 | OP ---
PATIENT NAME: JOSUÉ RAMON MEDICAL RECORD: [id number] :34 LOCATION:D.CAT ADMISSION DATE: SURGEON: DANUTA HENRANDEZ MD DATE OF OPERATION: 09/16/2016 PROCEDURES: 1. PTCA stent left circumflex. 2. Selective coronary angiography. INDICATION: Angina and coronary artery disease. PROCEDURE: After informed consent was obtained and after detailed explanation of risks, benefits as well as alternative therapies, the patient elected to proceed with angiogram and angioplasty. The left femoral area was prepped and draped in normal sterile fashion. Left femoral artery was cannulated via modified Seldinger technique with placement of 6-Bangladeshi sheath. All catheters exchanged through this sheath. FINDINGS: The left circumflex has an 80% to 90% stenosis in the mid vessel. This was addressed with a 2.25 x 18 mm Resolute stent. Result was 0% residual stenosis. OVERALL IMPRESSION: Successful percutaneous transluminal coronary angioplasty stent of the left circumflex going from 80% to 90% initial stenosis to 0% residual. TRANSINT:[id number] Voice Confirmation ID: [id number] DOCUMENT ID: [id number] DANUTA HERNANDEZ MD at 1008 CC: [id number] DICTATION DATE: 09/16/16 1235 SUPERINTENDENT INSTITUTION: 09/16/[address] [facility] CLI 09/16/[address] [address]
--- NOTE | 2016-09-19 10:08 | HP ---
PATIENT: JOSUÉ SIDDIQI MEDICAL RECORD: [id number] ACCOUNT: [id number] LOCATION:[facility] : 33 ADMISSION DATE: 09/16/16 HISTORY AND PHYSICAL EXAMINATION ADMITTING DIAGNOSES: 1. Angina. 2. Coronary artery disease. 3. Recent percutaneous transluminal coronary angioplasty stent of the left anterior descending and right coronary artery with concomitant disease of the left circumflex. 4. Hypertension. 5. Hyperlipidemia. HISTORY OF PRESENT ILLNESS: Mr. Siddiqi presents with anginal symptomatology, found to have 3-vessel coronary artery disease, underwent PTCA stent of the LAD, diagonal and RCA, and is now brought back for 90% stenosis to the left circumflex in a staged fashion. PHYSICAL EXAMINATION: GENERAL APPEARANCE: Well-nourished, well-developed, appears stated age. Level of distress, comfortable. PSYCHIATRIC: Mental status, alert, normal affect. Orientation, oriented to time, place and person. EYES: Lids and conjunctiva, noninjected. No discharge, no pallor. ENT: Lips, teeth, gums, normal dentition. Oropharynx, no cyanosis, no pallor. NECK: Carotid arteries, bilateral normal upstroke, no bruits, no thrills. JUGULAR VEINS: No jugular venous pressure or distention. CERVICAL LYMPH NODES: Nontender, nonenlarged. THYROID: Not enlarged. Nontender. No nodules. LUNGS: Respiratory effort, unlabored. CHEST: Normal curvature. No thoracic deformity. No chest wall tenderness. Percussion, resonant. Auscultation, clear. No wheezes, no rales, no rhonchi. CARDIOVASCULAR: Precordial exam, nondisplaced. No heaves or pericardial thrills. Rate and rhythm, regular. Heart sounds, normal S1, normal S2. No S3, no gallop, no rub. Systolic murmur, not heard. Diastolic murmur, not heard. EXTREMITIES: No cyanosis, no edema. Peripheral pulses, full and equal in all extremities, except as noted. No bruits appreciated. ABDOMEN: Soft, nondistended. Normal aorta. No bruit. Nontender. No masses. Liver, nontender, no hepatomegaly. Spleen, nontender, no splenomegaly. MUSCULOSKELETAL: No joint tenderness. No joint swelling. No erythema. NEUROLOGICAL: Normal gait, normal strength, normal tone. SKIN: Warm and dry. REVIEW OF SYSTEMS: The patient reports easy bruising but reports no swollen glands. The patient reports no fever, no night sweats, no significant weight gain, no significant weight loss. No significant exercise tolerance. The patient reports no dry eyes, no irritation, no vision change. Patient reports no difficulty hearing and no ear pain. Patient reports no frequent nose bleeds or nose and sinus problems. Patient reports on arm pain on exertion. No shortness of breath while lying down. No history of heart murmur. Patient reports no cough, no wheezing or coughing up blood. Patient reports no abdominal pain, no vomiting. Normal appetite. No diarrhea and not vomiting blood. No nausea and no constipation. Patient reports no incontinence. No difficulty urinating. No hematuria. No increased frequency. Patient reports HISTORY AND PHYSICAL [id number] SKIPPER,JOSUÉ F no muscle aches. No weakness, no arthralgias, no back pain. No swelling of the extremities. Patient reports no abnormal mole, no jaundice, no rashes. Reports no loss of consciousness. No weakness and no numbness. No seizures, dizziness, or headaches. The patient reports no depression, no sleep disturbance, feeling safe in a relationship and no alcohol abuse. Patient reports on fatigue. Reports no runny nose or sinus pressure. No itching, no hives, and no frequent sneezing. OVERALL IMPRESSION: Anginal symptomatology with significant disease of the circumflex. We will proceed with PTCA stent of the left circumflex. TRANSINT:[id number] Voice Confirmation ID: [id number] DOCUMENT ID: [id number] DANUTA HERNANDEZ MD at 1008 CC: [id number] DICTATION DATE: 09/16/16917 MANGLE TENDER CLOTH: 09/16/1636 [facility] CLI 09/16/16 [place] [id number]
== END 2016-09-16 16:30 | disposition home or self-care (01) ==
LOC: D.CATH 08:43
PROVIDERS: Internal Medicine Interventional Cardiology
DX: I25.119 Atherosclerotic heart disease of native coronary artery with unspecified angina pectoris (principal)

== ENCOUNTER → 2017-05-18 09:06 | Outpatient (CLI) | payer MEDICARE, OTHER ==
[2016-09-16 09:03] VITALS: BMI 34.2
[~2017-05-18 09:06] MED LIST changes: +FLUTICASONE PRO16 GM NASAL; +HYDROCODON-ACE1 EAC7 PO; +REQUIP1 MG; +SINGULAIR10 MG PO; +[UNRECOGNIZED DRUG - OTHER]
== END | disposition home or self-care (01) ==
LOC: D.RAD 08:15
DX: I71.2 Thoracic aortic aneurysm, without rupture (principal)

== ENCOUNTER → 2017-06-13 12:51 | Outpatient (CLI) | payer MEDICARE, OTHER ==
[2016-09-16 09:03] VITALS: BMI 34.2
[2017-06-14 11:20] LABS: IMMUNOGLOBULIN E 9 IU/mL (0-100)
--- NOTE | 2017-06-20 12:15 | EC ---
PATIENT:JOSUÉ RAMON DATE OF SERVICE: 06/13/17 SEX: M MEDICAL RECORD: [id number] DATE OF : 33 LOCATION:D.[facility] AGE OF PATIENT: 82 ADMISSION DATE: 06/13/17 REFERRING PHYSICIAN: INTERPRETING PHYSICIAN: DANUTA ANDRES MD ECHOCARDIOGRAM REPORT ECHO CHARGES 4 ECHO COMPLETE CLINICAL DIAGNOSIS: COPD/CHEST PAIN HX OF CAD/STENTS ECHOCARDIOGRAPHIC MEASUREMENTS (adult normal given) AC root (d.<3.7cm) 3.8 cm LV Septum d (<1.2 cm> 1.8 cm Valve Excursion 1.8 cm LV Septum (systole) 2.1 cm Left Atria (s.<4.0cm> 4.0 cm LVPW d(<1.2cm) 1.5 cm RV (d.<2.3cm) 3.6 cm LVPW (sytole) 1.9 cm LV diastole(<5.6CM) 4.6 cm MV E-F(>70mm/sec) cm LV systole 2.9 cm LVOT Diameter 1.7 cm MV exc.(>10mm) 1.3 cm Est.ejection fraction (50-75%) % Pericardial Effusion N DOPPLER: LVIT cm/sec A 141 cm/sec E 105 cm/sec LA cm/sec RVSP 24 mmHg LVOT 114 cm/sec AOP1/2T m/s Asc. Ao 144 cm/sec RVOT 90 cm/sec RA cm/sec PA 108 cm/sec AV Gradient Peak 8.29 mmHg AV Mean 4.02 mmHg AV Area 2.0 cm MV Gradient Peak 9.45 mmHg MV Mean 3.19 mmHg MV Area cm COMMENTS: Tissue Packer: Sarah JACK Loan Broker: 1 Dr. Andres TAPE# PACS DATE OF SERVICE: 06/13/2017 FINDINGS: 1. Left ventricular chamber size is within normal limits. Left ventricular systolic function is normal. Overall ejection fraction estimated at 55%. 2. Left atrium is upper limits of normal at 4.0 cm. Right atrium and right ventricular chamber sizes are mildly dilated. 3. Valvular structures: The mitral valve demonstrates heavy calcification, but no significant mitral stenosis. The remaining valvular structures have normal structure and motion. ECHOCARDIOGRAM REPORT [id number] JOSUÉ RAMON 4. Doppler interrogation reveals mild mitral regurgitation, mild tricuspid regurgitation. No other valvular insufficiency or stenosis. Pulmonary systolic pressure is normal estimated at 24 mmHg. 5. No evidence of pericardial effusion or left ventricular thrombus. TRANSINT:[id number] Voice Confirmation ID: [id number] DOCUMENT ID: [id number] DANUTA ANDRES MD at 1215 CC: [id number] DICTATION DATE: 06/14/17 1105 AUDIO VISUAL ENGINEER: 06/14/17 1242 [facility] CLI 06/13/[address] [id number]
== END | disposition home or self-care (01) ==
LOC: D.RT 05-17 08:00 → D.ECHO 05-17 09:00 → D.LAB 05-17 09:30 → D.RAD 05-17 09:45 → D.ECHO 12:51
PROVIDERS: Internal Medicine Pulmonary Disease
DX: J44.9 Chronic obstructive pulmonary disease, unspecified (principal); R07.9 Chest pain, unspecified

== ENCOUNTER 2017-07-16 11:15 | Observation (INO) | payer MEDICARE, OTHER ==
[~2017-07-16] VITALS: Ht 180.3 cm; Wt 112.4 kg
--- NOTE | ~2017-07-16 | CN ---
PATIENT NAME:JOSUÉ RAMON MEDICAL RECORD: [id number] : 33 LOCATION:DNathaly D.2137 ADMIT DATE: 07/16/17 ACCOUNT: [id number] CONSULTING PHYSICIAN: ARCELIA OLSEN MD REFERRING PHYSICIAN: MARIA M BYNUM MD DATE OF CONSULTATION: 07/17/2017 HISTORY OF PRESENT ILLNESS: An 82-year-old gentleman with a history of coronary artery disease, status post intervention. No recurrent angina, has history of near syncope. These sound fairly classic protein hypoglycemic, profuse sweating. Sugar taken is below 70 responding promptly to oral intake, orange juice, peanut butter, etc. We are asked to see him concerning his cardiovascular status. PAST MEDICAL HISTORY: Includes: 1. History of hypertension. 2. Hyperlipidemia. 3. Coronary artery disease as described above. 4. Diabetes mellitus. MEDICATIONS: Include Glucophage 1 gram b.i.d., Protonix 40 every day, Singulair 10 q.h.s., aspirin 81 every day, lisinopril 10 every day, Atenolol 50 every day, Lopid 600 b.i.d., Plavix 75 every day. ALLERGIES: None known. SOCIAL HISTORY: Lives here in [place]. Nonsmoker, nondrinker, does walk regularly. Easily takes care of his ADLs. REVIEW OF SYSTEMS: The patient reports easy bruising but reports no swollen glands. The patient reports no fever, no night sweats, no significant weight gain, no significant weight loss. No significant exercise tolerance. The patient reports no dry eyes, no irritation, no vision change. Patient reports no difficulty hearing and no ear pain. Patient reports no frequent nose bleeds or nose and sinus problems. Patient reports on arm pain on exertion. No shortness of breath while lying down. No history of heart murmur. Patient reports no cough, no wheezing or coughing up blood. Patient reports no abdominal pain, no vomiting. Normal appetite. No diarrhea and not vomiting blood. No nausea and no constipation. Patient reports no incontinence. No difficulty urinating. No hematuria. No increased frequency. Patient reports no muscle aches. No weakness, no arthralgias, no back pain. No swelling of the extremities. Patient reports no abnormal mole, no jaundice, no rashes. Reports no loss of consciousness. No weakness and no numbness. No seizures, dizziness, or headaches. The patient reports no depression, no sleep disturbance, feeling safe in a relationship and no alcohol abuse. Patient reports on fatigue. Reports no runny nose or sinus pressure. No itching, no hives, and no frequent sneezing. PHYSICAL EXAMINATION: GENERAL: Pleasant gentleman. Appears younger than stated age. VITAL SIGNS: Blood pressure 141/69, pulse 68 and regular. HEENT: Normocephalic, atraumatic. NECK: No JVD or bruit. HEART: Regular, II/ systolic ejection murmur. LUNGS: Good air excursion. CONSULT REPORT [id number] JOSUÉ RAMON ABDOMEN: Soft, nontender. EXTREMITIES: Pulses 2+ with no edema. NEUROLOGIC: Grossly intact. DIAGNOSTIC DATA: Telemetry shows no evidence of AV block or pauses. Labs may be a little intravascular volume depleted. IMPRESSION: Near syncope, suspect intravascular volume depleted with some superimposed hypoglycemia. Agree with the current workup. Nothing to add from a cardiovascular standpoint. TRANSINT:[id number] Voice Confirmation ID: [id number] DOCUMENT ID: [id number] ARCELIA OLSEN MD at 1337 CC: [id number] DICTATION DATE: 07/17/17 0836 CLINICAL AUDIOLOGIST: 07/17/17 1107 DIS IN 07/17/17 [place] [address] [place] [address]
[~2017-07-16 11:15] MED LIST changes: -FLUTICASONE PRO16 GM NASAL; -HYDROCODON-ACE1 EAC7 PO; -REQUIP1 MG; -SINGULAIR10 MG PO; -[UNRECOGNIZED DRUG - OTHER]
[2017-07-16 11:44] LABS: BASOPHILS 0.2 % (0-2); EOSINOPHILS 3.4 % (0-7); HEMOGLOBIN 14.2 g/dL (13.5-17.5); IMMATURE GRANULOCYTES 0.4 % (0-5); LYMPHOCYTES 40.9 % (15-50); MCH 31.6 pg (26.0-34.0); MCV 95.8 fL (80.0-100.0); MEAN PLATELET VOLUME 9.3 fL (7.4-10.4); MONOCYTES 11.6 % (2-11); NEUTROPHILS 43.5 % (40-80); PLATELET COUNT 270 10x3/uL (130-400); RBC 4.49 10x6/uL (4.20-6.10); RDW 13.7 % (11.5-14.5); WBC 11.3 10x3/uL (4.8-10.8)
[2017-07-16 11:56] LABS: ALBUMIN 4.2 g/dL (3.4-5.0); ALKALINE PHOSPHATASE 45 U/L (46-116); ALT (SGPT) 30 U/L (10-68); BILIRUBIN - TOTAL 0.27 mg/dL (0.2-1.3); CALC OSMOLALITY 286 mosm/kg (275-300); CALCIUM 9.7 mg/dL (8.5-10.1); CARBON DIOXIDE 27.5 mmol/L (21.0-32.0); CHLORIDE - SERUM 104 mmol/L (98-107); CREATININE - SERUM 1.6 mg/dL (0.6-1.3); GLUCOSE 76 mg/dL (74-106); POTASSIUM - SERUM 4.1 mmol/L (3.5-5.1); PROTEIN - SERUM 7.6 g/dL (6.4-8.2); SODIUM 142 mmol/L (136-145); UREA NITROGEN 26 mg/dL (7-18); eGFR NON AFRICAN AMERICAN 44 mL/min (90-120)
[2017-07-16 12:11] LABS: CHOL - HDL RATIO 4.9 ratio (2.3-4.9); CHOLESTEROL, TOTAL 157 mg/dL (0-200); CKMB 2.6 U/L (0.0-3.6); CREATINE KINASE 212 UL (21-232); HDL CHOLESTEROL 32 mg/dL (32-96); LDL CHOLESTEROL 103 mg/dL (0-100); LDL-HDL RATIO 3.2 ratio (1.5-3.5); TRIGLYCERIDE 110 mg/dL (30-200)
[2017-07-16 12:14] LABS: TROPONIN-I < 0.017 ng/mL (0.000-0.060)
[2017-07-16] MEDS ORDERED: SINGULAIR10 MG PO (14:46)
[2017-07-16] MEDS ORDERED: FLUTICASONE PRO16 GM NASAL (14:48)
[2017-07-16] MEDS ORDERED: HYDROCODON-ACE1 EAC7 PO (14:49)
[2017-07-16] MEDS ORDERED: [UNRECOGNIZED DRUG - OTHER] (14:51)
[2017-07-16] MEDS ORDERED: REQUIP1 MG (14:52)
[2017-07-16 14:53] VITALS: BP 155/63; BMI 34.5
[2017-07-16 17:03] VITALS: Ht 180.3 cm; Wt 112.4 kg
[2017-07-16 18:18] LABS: CKMB 2.9 U/L (0.0-3.6); CREATINE KINASE 184 UL (21-232); TROPONIN-I < 0.017 ng/mL (0.000-0.060)
[2017-07-16 20:00] VITALS: BP 148/60
[2017-07-16 21:06] LABS: APPEARANCE CLEAR (CLEAR); BILIRUBIN NEGATIVE (NEGATIVE); COLOR YELLOW (YELLOW); GLUCOSE NEGATIVE (NEGATIVE); KETONE NEGATIVE (NEGATIVE); NITRITE NEGATIVE (NEGATIVE); PROTEIN NEGATIVE (NEGATIVE); SPECIFIC GRAVITY 1.015 (1.005-1.020); UROBILINOGEN NORMAL (NORMAL)
[2017-07-16 23:42] LABS: CKMB 2.3 U/L (0.0-3.6); CREATINE KINASE 161 UL (21-232); TROPONIN-I < 0.017 ng/mL (0.000-0.060)
[2017-07-17] VITALS: BP 113/47
[2017-07-17 04:00] VITALS: BP 118/72
[2017-07-17 06:23] LABS: BASOPHILS 0.1 % (0-2); EOSINOPHILS 4.2 % (0-7); HEMATOCRIT 41.4 % (42.0-54.0); HEMOGLOBIN 13.6 g/dL (13.5-17.5); IMMATURE GRANULOCYTES 0.5 % (0-5); LYMPHOCYTES 22.3 % (15-50); MCH 31.5 pg (26.0-34.0); MCHC 32.9 g/dL (31.0-37.0); MCV 95.8 fL (80.0-100.0); MEAN PLATELET VOLUME 9.3 fL (7.4-10.4); MONOCYTES 10.4 % (2-11); NEUTROPHILS 62.5 % (40-80); PLATELET COUNT 249 10x3/uL (130-400); RBC 4.32 10x6/uL (4.20-6.10); RDW 13.7 % (11.5-14.5)
[2017-07-17 06:38] LABS: ANION GAP 13.8 mmol/L (8-16); CALCIUM 9.2 mg/dL (8.5-10.1); CARBON DIOXIDE 26.3 mmol/L (21.0-32.0); CREATININE - SERUM 1.4 mg/dL (0.6-1.3); POTASSIUM - SERUM 4.1 mmol/L (3.5-5.1)
[2017-07-17 07:05] LABS: WBC 7.9 10x3/uL (4.8-10.8)
[2017-07-17 08:04] VITALS: BP 141/69
[2017-07-17 12:09] VITALS: BP 134/66
== END 2017-07-17 16:42 | disposition home or self-care (01) ==
LOC: D.ER 11:15 → D.M2 13:53 → OBSVTIME 07-17 14:00 → D.M2 07-17 16:42
PROVIDERS: Emergency Medicine; Internal Medicine Nephrology
DX: E11.649 Type 2 diabetes mellitus with hypoglycemia without coma (principal); I10 Essential (primary) hypertension; E78.5 Hyperlipidemia, unspecified; N17.9 Acute kidney failure, unspecified; N40.0 Benign prostatic hyperplasia without lower urinary tract symptoms; E86.9 Volume depletion, unspecified; Z87.891 Personal history of nicotine dependence; I25.10 Atherosclerotic heart disease of native coronary artery without angina pectoris; Z95.5 Presence of coronary angioplasty implant and graft

== ENCOUNTER → 2018-06-21 09:30 | Outpatient (CLI) | payer MEDICARE, OTHER ==
[2017-07-16 17:03] VITALS: BMI 34.5
[~2018-06-21 09:30] MED LIST changes: +FLUTICASONE PRO16 GM NASAL; +HYDROCODON-ACE1 EAC7 PO; +REQUIP1 MG; +SINGULAIR10 MG PO; +[UNRECOGNIZED DRUG - OTHER]
== END | disposition home or self-care (01) ==
LOC: D.US 09:30
DX: I10 Essential (primary) hypertension (principal); R60.9 Edema, unspecified; N17.9 Acute kidney failure, unspecified; E11.69 Type 2 diabetes mellitus with other specified complication; Z68.35 Body mass index [BMI] 35.0-35.9, adult

== ENCOUNTER → 2018-07-06 13:51 | Outpatient (CLI) | payer MEDICARE, OTHER ==
[2017-07-16 17:03] VITALS: BMI 34.5
[~2018-07-06 13:51] MED LIST changes: +FUROSEMIDE20 MG PO; +GLIPIZIDE10 MG PO; +KLOR-CON M1515 MEQ PO; +LEVAQUIN750 MG PO; +MULTI-DAY VITAM1 TAB PO; +NORCO 7.5/325 T1 TA1 PO; +TESSALON PERLE100 MG PO; +ZANAFLEX4 MG PO
== END | disposition home or self-care (01) ==
LOC: D.US 13:00
DX: R60.0 Localized edema (principal)

== ENCOUNTER 2018-07-08 12:55 | Emergency (ER) | payer MEDICARE, OTHER ==
[~2018-07-08] VITALS: Ht 180.3 cm; Wt 111.4 kg
[~2018-07-08 12:55] MED LIST changes: -FUROSEMIDE20 MG PO; -GLIPIZIDE10 MG PO; -KLOR-CON M1515 MEQ PO; -LEVAQUIN750 MG PO; -MULTI-DAY VITAM1 TAB PO; -NORCO 7.5/325 T1 TA1 PO; -TESSALON PERLE100 MG PO; -ZANAFLEX4 MG PO
[2018-07-08 13:26] VITALS: Ht 180.3 cm; Wt 111.4 kg
[2018-07-08] MEDS ORDERED: GLIPIZIDE10 MG PO (13:31)
[2018-07-08] MEDS ORDERED: MULTI-DAY VITAM1 TAB PO (13:31)
[2018-07-08] MEDS ORDERED: FUROSEMIDE20 MG PO (13:32)
[2018-07-08] MEDS ORDERED: KLOR-CON M1515 MEQ PO (13:32)
[2018-07-08] MEDS ORDERED: ZANAFLEX4 MG PO (13:33)
[2018-07-08 13:51] LABS: BASOPHILS 0.2 % (0-2); EOSINOPHILS 2.3 % (0-7); HEMATOCRIT 42.7 % (42.0-54.0); HEMOGLOBIN 14.1 g/dL (13.5-17.5); IMMATURE GRANULOCYTES 0.5 % (0-5); LYMPHOCYTES 5.1 % (15-50); MCH 31.1 pg (26.0-34.0); MCV 94.3 fL (80.0-100.0); MEAN PLATELET VOLUME 9.2 fL (7.4-10.4); MONOCYTES 8.3 % (2-11); NEUTROPHILS 83.6 % (40-80); PLATELET COUNT 230 10x3/uL (130-400); RBC 4.53 10x6/uL (4.20-6.10); RDW 13.9 % (11.5-14.5); WBC 16.8 10x3/uL (4.8-10.8)
[2018-07-08 14:05] LABS: ALKALINE PHOSPHATASE 63 U/L (46-116); ALT (SGPT) 29 U/L (10-68); BILIRUBIN - TOTAL 0.59 mg/dL (0.2-1.3); CALC OSMOLALITY 295 mosm/kg (275-300); CALCIUM 9.5 mg/dL (8.5-10.1); CARBON DIOXIDE 29.4 mmol/L (21.0-32.0); CHLORIDE - SERUM 103 mmol/L (98-107); CREATININE - SERUM 2.4 mg/dL (0.6-1.3); GLUCOSE 91 mg/dL (74-106); POTASSIUM - SERUM 4.2 mmol/L (3.5-5.1); PROTEIN - SERUM 7.5 g/dL (6.4-8.2); SODIUM 144 mmol/L (136-145); UREA NITROGEN 37 mg/dL (7-18); eGFR NON AFRICAN AMERICAN 27 mL/min (90-120)
[2018-07-08 14:16] LABS: CKMB 3.8 U/L (0.0-3.6); CREATINE KINASE 279 UL (21-232); MAGNESIUM - SERUM 1.9 mg/dL (1.8-2.4); TROPONIN-I < 0.017 ng/mL (0.000-0.060)
[2018-07-08] MEDS ORDERED: TESSALON PERLE100 MG PO (15:47)
[2018-07-08 16:41] VITALS: BP 130/77
== END 2018-07-08 16:42 | disposition home or self-care (01) ==
LOC: D.ER 12:55
PROVIDERS: Family Medicine
DX: D72.829 Elevated white blood cell count, unspecified (principal); N17.9 Acute kidney failure, unspecified; Z87.01 Personal history of pneumonia (recurrent); R07.9 Chest pain, unspecified; R22.41 Localized swelling, mass and lump, right lower limb; E11.9 Type 2 diabetes mellitus without complications; I10 Essential (primary) hypertension

== ENCOUNTER 2018-07-10 08:47 | Emergency (ER) | payer MEDICARE, OTHER ==
[~2018-07-10] VITALS: Ht 180.3 cm; Wt 109.1 kg
[~2018-07-10 08:47] MED LIST changes: +FUROSEMIDE20 MG PO; +GLIPIZIDE10 MG PO; +KLOR-CON M1515 MEQ PO; +MULTI-DAY VITAM1 TAB PO; +TESSALON PERLE100 MG PO; +ZANAFLEX4 MG PO
[2018-07-10 08:56] VITALS: Ht 180.3 cm; Wt 109.1 kg
[2018-07-10] MEDS ORDERED: LEVAQUIN750 MG PO (09:57)
[2018-07-10] MEDS ORDERED: NORCO 7.5/325 T1 TA1 PO (09:57)
[2018-07-10 10:11] VITALS: BP 119/76
== END 2018-07-10 10:13 | disposition home or self-care (01) ==
LOC: D.ER 08:47
DX: J40 Bronchitis, not specified as acute or chronic (principal); N28.9 Disorder of kidney and ureter, unspecified

== ENCOUNTER → 2018-08-03 12:12 | Outpatient (CLI) | payer MEDICARE, OTHER ==
[2018-07-10 08:56] VITALS: BMI 33.5
[~2018-08-03 12:12] MED LIST changes: +COLACE100 MG PO; +LEVAQUIN750 MG PO; +NORCO 7.5/325 T1 TA1 PO
== END | disposition home or self-care (01) ==
LOC: D.CT 12:12
DX: R94.4 Abnormal results of kidney function studies (principal)

== ENCOUNTER 2018-08-08 09:05 | Inpatient (IN) | payer MEDICARE, OTHER ==
[~2018-08-08] VITALS: Ht 180.3 cm; Wt 111.1 kg
[~2018-08-08 09:05] MED LIST changes: -COLACE100 MG PO
[2018-08-08 11:19] VITALS: BP 116/78; BMI 34.2
[2018-08-08 11:52] LABS: BASOPHILS 0.2 % (0-2); EOSINOPHILS 4.2 % (0-7); HEMOGLOBIN 12.6 g/dL (13.5-17.5); IMMATURE GRANULOCYTES 0.5 % (0-5); LYMPHOCYTES 19.4 % (15-50); MCH 30.4 pg (26.0-34.0); MCHC 33.2 g/dL (31.0-37.0); MCV 91.8 fL (80.0-100.0); MEAN PLATELET VOLUME 9.1 fL (7.4-10.4); MONOCYTES 13.7 % (2-11); PLATELET COUNT 255 10x3/uL (130-400); RBC 4.14 10x6/uL (4.20-6.10); RDW 13.3 % (11.5-14.5); WBC 10.1 10x3/uL (4.8-10.8)
[2018-08-08 12:23] LABS: ALBUMIN 3.5 g/dL (3.4-5.0); ANION GAP 15.8 mmol/L (8-16); BILIRUBIN - TOTAL 0.3 mg/dL (0.2-1.3); CALCIUM 8.5 mg/dL (8.5-10.1); CARBON DIOXIDE 23.7 mmol/L (21.0-32.0); CREATININE - SERUM 2.7 mg/dL (0.6-1.3); POTASSIUM - SERUM 4.5 mmol/L (3.5-5.1); PROTEIN - SERUM 6.5 g/dL (6.4-8.2)
[2018-08-08 13:34] LABS: APPEARANCE CLEAR (CLEAR); BILIRUBIN NEGATIVE (NEGATIVE); COLOR YELLOW (YELLOW); GLUCOSE NEGATIVE (NEGATIVE); KETONE NEGATIVE (NEGATIVE); NITRITE NEGATIVE (NEGATIVE); PROTEIN NEGATIVE (NEGATIVE); SPECIFIC GRAVITY 1.015 (1.005-1.020); UROBILINOGEN NORMAL (NORMAL)
[2018-08-08 16:49] VITALS: BP 115/57
[2018-08-08 21:34] VITALS: BP 119/59
[2018-08-09 04:58] VITALS: BP 127/61
[2018-08-09 06:22] LABS: BASOPHILS 0.2 % (0-2); EOSINOPHILS 2.6 % (0-7); HEMATOCRIT 37.5 % (42.0-54.0); HEMOGLOBIN 12.3 g/dL (13.5-17.5); IMMATURE GRANULOCYTES 0.5 % (0-5); LYMPHOCYTES 10.4 % (15-50); MCH 30.2 pg (26.0-34.0); MCHC 32.8 g/dL (31.0-37.0); MCV 92.1 fL (80.0-100.0); MEAN PLATELET VOLUME 9.3 fL (7.4-10.4); MONOCYTES 10.8 % (2-11); NEUTROPHILS 75.5 % (40-80); PLATELET COUNT 265 10x3/uL (130-400); RBC 4.07 10x6/uL (4.20-6.10); RDW 13.6 % (11.5-14.5)
[2018-08-09 06:35] LABS: ALBUMIN 3.2 g/dL (3.4-5.0); ANION GAP 13.6 mmol/L (8-16); BILIRUBIN - TOTAL 0.34 mg/dL (0.2-1.3); CALCIUM 8.8 mg/dL (8.5-10.1); CARBON DIOXIDE 25.9 mmol/L (21.0-32.0); CREATININE - SERUM 2.6 mg/dL (0.6-1.3); POTASSIUM - SERUM 4.5 mmol/L (3.5-5.1); PROTEIN - SERUM 6.7 g/dL (6.4-8.2)
--- NOTE | 2018-08-09 08:42 | OP ---
PATIENT NAME: JOSUÉ RAMON MEDICAL RECORD: [id number] :33 LOCATION:D.MS Granda2224 ADMISSION DATE:08/08/18 SURGEON: OMAR ALCAZAR MD DATE OF OPERATION: 08/08/2018 SURGEON: Omar Alcazar MD ANESTHESIA: TIVA by Ángel Argueta CRNA PROCEDURE: Cystoscopy, right retrograde pyelogram, right ureteral stent insertion, 6-Citizen [place] x 24 cm Cook Resonance metal stents. DIAGNOSIS: Right hydroureteronephrosis due to retroperitoneal lymphadenopathy. 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 FINDINGS: On cystoscopy, single ureteral orifices bilaterally. No bladder tumors. Obstructive bladder neck. On retrograde pyelogram on the right side, there was a very severe distal third ureteral stenosis with proximal hydroureteronephrosis. ESTIMATED BLOOD LOSS: None. 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 It was treated with chemotherapy [address] Vaughan, comes now with CT scan findings of large mesenteric lymph nodes. There is right hydroureteronephrosis due to a retroperitoneal mass which are matted enlarged lymph nodes. The left ureter is currently spared by this mass. He comes to have cystoscopy and right ureteral stent insertion to relieve the right renal obstruction. He will probably be having another round of chemotherapy to control the lymphoma. He is not allergic to any medications. He was given Ancef IV concrete paving machine operator to the OR. DESCRIPTION OF PROCEDURE: The patient was given IV sedation. He was placed into dorsal lithotomy position and prepped and draped. We then used a 21-[place]izen [place] cystoscope with 30-degree lens. Findings are as outlined above. An open-ended ureteral catheter was placed into the right ureteral orifice. There was a lot of resistance to my wire retrograde pyelogram. However, enough contrast managed to get through the stricture zone did show us the proximal hydroureteronephrosis. Again, we passed a Sensor wire through the stricture zone up into the renal pelvis. The open-ended ureteral catheter was then removed. The ureteral catheter and sheath were then placed through the stricture zone with a great deal of resistance and difficulty. Finally, the sheath managed to enter into the renal pelvis. The sheath was used for placement of the metal Cook Resonance stent. The Sensor wire and the ureteral catheter was then removed. The Resonance stent was then inserted through the lumen of the ureteral sheath. Once the stent was in correct position, it was held there using the ureteral catheter while the sheath was completely withdrawn. At the end of the procedure, the stent was in correct position cystoscopically as well as radiographically. The bladder was emptied through the cystoscope sheath and then the scope was removed. The patient will be going back to the floor. TRANSINT:[id number] Voice Confirmation ID: [id number] DOCUMENT ID: [id number] OPERATIVE REPORT [id number] JOSUÉ RAMON, OMAR Alamo MD at 0842 CC: [id number] DICTATION DATE: 08/08/181816 TAPE FASTENER MACHINE OPERATOR: 08/09/18 0210 [facility] [place] [id number] [place] [id number]
[2018-08-09 08:50] VITALS: BP 123/66
[2018-08-09 12:27] VITALS: BP 116/60
[2018-08-09 13:19] VITALS: Ht 180.3 cm; Wt 111.1 kg
[2018-08-09 16:19] VITALS: BP 131/73
[2018-08-09 20:00] VITALS: BP 134/61
[2018-08-10] VITALS: BP 122/59
[2018-08-10 04:00] VITALS: BP 135/69
[2018-08-10 06:07] LABS: BASOPHILS 0.4 % (0-2); EOSINOPHILS 3.2 % (0-7); HEMATOCRIT 37.3 % (42.0-54.0); HEMOGLOBIN 12.1 g/dL (13.5-17.5); LYMPHOCYTES 14.9 % (15-50); MCH 29.8 pg (26.0-34.0); MCHC 32.4 g/dL (31.0-37.0); MCV 91.9 fL (80.0-100.0); MEAN PLATELET VOLUME 9.3 fL (7.4-10.4); MONOCYTES 11.1 % (2-11); NEUTROPHILS 69.4 % (40-80); PLATELET COUNT 255 10x3/uL (130-400); RBC 4.06 10x6/uL (4.20-6.10); RDW 13.8 % (11.5-14.5); WBC 9.9 10x3/uL (4.8-10.8)
[2018-08-10 06:26] LABS: ALBUMIN 3.2 g/dL (3.4-5.0); BILIRUBIN - TOTAL 0.37 mg/dL (0.2-1.3); CALCIUM 8.8 mg/dL (8.5-10.1); CARBON DIOXIDE 23.1 mmol/L (21.0-32.0); CREATININE - SERUM 2.1 mg/dL (0.6-1.3); POTASSIUM - SERUM 4.1 mmol/L (3.5-5.1); PROTEIN - SERUM 6.8 g/dL (6.4-8.2)
[2018-08-10 08:25] VITALS: BP 137/70
[2018-08-10] MEDS ORDERED: COLACE100 MG PO (09:14)
--- NOTE | 2018-08-10 09:50 | MORECARE ---
CASE MANAGEMENT DISCHARGE SUMMARY PATIENT: JOSUÉ RAMON UNIT: [id number] ADM DATE: 08/08/18 AGE: 83 : 34 SEX: M ROOM/BED: D.2224 AUTHOR: RUBENS BANKS PHYSICIAN: REFERRING PHYSICIAN: TAVO MARIEE MD DATE OF SERVICE: 08/10/18 Discharge Plan Patient Name: JOSUÉ RAMON [facility] [facility] 1935 Planned Disposition: Home Anticipated Discharge Date: 08/10/18 Discharge Date: Expected LOS: 2 Initial Reviewer: [email or web address] Initial Review Date: 08/10/2018 Generated: 08/10/18 10:50 am DCPIA - Discharge Planning Initial Assessment Updated by [email or web address]: Cyndie Centeno on 08/10/18 9:50 am * Is the patient Alert and Oriented? Yes * How many steps to enter\exit or inside your home? 0/1 flight * PCP Dr. Mariee * Pharmacy [facility] * Preadmission Environment Home with Family * ADLs Independent * Equipment Walker * List name and contact numbers for known caregivers / representatives who currently or will assist patient after discharge: Adele - gpby - [phone] * Verbal permission to speak to the caregivers and representatives has been obtained from the patient. Yes * Community resources currently utilized None * Additional services required to return to the preadmission environment? No * Can the patient safely return to the preadmission environment? Yes * Has this patient been hospitalized within the prior 30 days at any hospital? No Patient Name: JOSUÉ RAMON Page [id number] at 0950 All edits/amendments must be made on the electronic document DICTATION DATE: 08/10/18949 VEHICLE DETAILER: NERI 08/10/18 0950 RPT#: [id number] DC DATE: STATUS: ADM IN [facility] [address] [place] [address] END OF REPORT
--- NOTE | 2018-08-10 09:58 | MORECARE ---
CASE MANAGEMENT DISCHARGE SUMMARY PATIENT: JOSUÉ RAMON UNIT: [id number] ADM DATE: 08/08/18 AGE: 83 : 34 SEX: M ROOM/BED: D.2224 AUTHOR: RUBENS BANKS PHYSICIAN: REFERRING PHYSICIAN: TAVO MARIEE MD DATE OF SERVICE: 08/10/18 Discharge Plan Patient Name: JOSUÉ RAMON Facility: [facility]:[place] : 1935 Planned Disposition: Home Anticipated Discharge Date: 08/10/18 Discharge Date: Expected LOS: 2 Initial Reviewer: [email or web address] Initial Review Date: 08/10/2018 Generated: 08/10/18 10:58 am Comments DCP- Discharge Planning Updated by [email or web address]: Cyndie Centeno on 08/10/18 8:[address] Patient Name: JOSUÉ RAMON Admission Status: Elective Accout number: [id number] Admission Date: 08-08-2018 : 1935 Admission Diagnosis: Attending: TAVO MARIEE Current LOS: 2 Anticipated DC Date: 08-10-2018 Planned Disposition: Home Primary Insurance: MEDICARE A & B Discharge Planning Comments: CM met with patient and his to discuss discharge planning. He lives with his and son. He is independent with all ADL's and IADL's. States he has a walker that he uses as needed. States his DME choice for medical equipment is [facility]. Discussed availability of additional DME, rehab and home health. States his discharge plan is to return home with his . Declines need for additional DME or home health services. No needs identified. CM will continue to follow and assist with discharge planning/needs. Finish Rolls Operator: Cyndie Centeno DCPIA - Discharge Planning Initial Assessment Updated by [email or web address]: Cyndie Centeno on 08/10/18 9:50 am * Is the patient Alert and Oriented? Yes * How many steps to enter\exit or inside your home? 0/1 flight * PCP Dr. Mariee * Pharmacy [facility] * Preadmission Environment Home with Family * ADLs Independent * Equipment Walker * List name and contact numbers for known caregivers / representatives who currently or will assist patient after discharge: Adele - - [phone] * Verbal permission to speak to the caregivers and representatives has been obtained from the patient. Yes * Community resources currently utilized None * Additional services required to return to the preadmission environment? No * Can the patient safely return to the preadmission environment? Yes * Has this patient been hospitalized within the prior 30 days at any hospital? No Last DP export: 08/10/18 8:50 am Patient Name: JOSUÉ RAMON Page [phone] at 0958 All edits/amendments must be made on the electronic document DICTATION DATE: 08/10/18956 EXTERMINATOR HELPER: NERI 08/10/18956 RPT#: [id number] DC DATE: STATUS: ADM IN [facility] [address] [place] [address] END OF REPORT
--- NOTE | 2018-08-14 06:54 | MORECARE ---
CASE MANAGEMENT DISCHARGE SUMMARY PATIENT: JOSUÉ RAMON UNIT: [id number] ADM DATE: 08/08/18 AGE: 83 : 34 SEX: M ROOM/BED: D.2224 AUTHOR: RUBENS BANKS PHYSICIAN: REFERRING PHYSICIAN: TAVO MARIEE MD DATE OF SERVICE: 08/14/18 Discharge Plan Patient Name: JOSUÉ RAMON Facility[facility]:[place] : 1935 Planned Disposition: Home Anticipated Discharge Date: 08/10/18 Discharge Date: 08/10/2018 Expected LOS: 2 Initial Reviewer: [email or web address] Initial Review Date: 08/10/2018 Generated: 08/14/18 7:54 am Comments DCP- Discharge Planning Updated by [email or web address]: Cyndie Centeno on 08/10/18 8:[address] Patient Name: JOSUÉ RAMON Admission Status: Elective Accout number: [id number] Admission Date: 08-08-2018 : 1935 Admission Diagnosis: Attending: TAVO MARIEE Current LOS: 2 Anticipated DC Date: 08-10-2018 Planned Disposition: Home Primary Insurance: MEDICARE A & B Discharge Planning Comments: CM met with patient and his to discuss discharge planning. He lives with his and son. He is independent with all ADL's and IADL's. States he has a walker that he uses as needed. States his DME choice for medical equipment is [facility]. Discussed availability of additional DME, rehab and home health. States his discharge plan is to return home with his . Declines need for additional DME or home health services. No needs identified. CM will continue to follow and assist with discharge planning/needs. Digital Hardware Design Engineer: Cyndie Centeno DCPIA - Discharge Planning Initial Assessment Updated by [email or web address]: Cyndie Centeno on 08/10/18 9:50 am * Is the patient Alert and Oriented? Yes * How many steps to enter\exit or inside your home? 0/1 flight * PCP Dr. Mariee * Pharmacy [facility] * Preadmission Environment Home with Family * ADLs Independent * Equipment Walker * List name and contact numbers for known caregivers / representatives who currently or will assist patient after discharge: Adele - - [facility] [phone] * Verbal permission to speak to the caregivers and representatives has been obtained from the patient. Yes * Community resources currently utilized None * Additional services required to return to the preadmission environment? No * Can the patient safely return to the preadmission environment? Yes * Has this patient been hospitalized within the prior 30 days at any hospital? No Last DP export: 08/10/18 8:58 am Patient Name: JOSUÉ RAMON Page [phone] at 0654 All edits/amendments must be made on the electronic document DICTATION DATE: 08/14/18653 PATTERNMAKER WOOD: NERI 08/14/1854 RPT#: [id number] DC DATE:08/10/18 STATUS: DIS IN [facility] [address] [place] [address] END OF REPORT
== END 2018-08-10 11:35 | disposition home or self-care (01) | DRG 661 ==
LOC: D.SDCHOLD 09:05 → D.MS 10:23
PROVIDERS: Internal Medicine Nephrology; Urology; ADMIT Family Medicine
PROC: 0T768DZ Dilation of Right Ureter with Intraluminal Device, Via Natural or Artificial Opening Endoscopic (ICD-10-PCS; principal; 2018-08-08 16:00)
DX: N13.1 Hydronephrosis with ureteral stricture, not elsewhere classified (principal); R59.0 Localized enlarged lymph nodes; N17.9 Acute kidney failure, unspecified; E11.9 Type 2 diabetes mellitus without complications; I10 Essential (primary) hypertension; I25.10 Atherosclerotic heart disease of native coronary artery without angina pectoris

== ENCOUNTER 2018-08-15 00:33 | Observation (INO) | payer MEDICARE, OTHER ==
[~2018-08-15] VITALS: Ht 180.3 cm; Wt 111.4 kg
[2018-08-15] VITALS (9 sets, daily range): BP systolic 107–133; BP diastolic 55–74; Ht 180.3 cm; Wt 111.4 kg
--- NOTE | ~2018-08-15 | HEMODYNAMI ---
PATIENT:JOSUÉ RAMON MEDICAL RECORD: [id number] : 33 LOCATION:YANELY Jesus AlbertoT02[facility]# [id number] ADMISSION DATE: 08/15/18 Generatedon:08/15/201810:10 Patient name: JOSUÉ RAMON Patient #: [id number] : 1935 Date of study: 08/15/2018 Page: Of Hemodynamic Procedure Report Patient Data Patient Demographics Procedure consent was obtained First Name: JOSUÉ Gender: Male Last Name: TRISTEN : 1935 [facility] Initial: F Age: 83 year(s) Patient #: [id number] Race: SSN: [id number] Additional ID: [id number] Contact details Address: [address] [place] [address] [facility] State: [place] City: [place] Zip code: [address] Past Medical History Allergies: No known allergies Admission Admission Data Admission Date: 08/15/2018 Admission Time: 2:13 Admit Source: Emergency department Room #: D.T02 Height (in.): 71 BSA: 2.3 (m2) Height (cm.): 180.34 BMI: 34.24 (kg/m2) Weight (lbs.): 245.51 Weight (kg.): 111.36 Lab Results Lab Result Date: 08/15/2018 Lab Result Time: 0:00 Biochemistry Name Units Result Min Max BUN mg/dl 28 --(----)-* 7 18 Creatinine mg/dl 1.7 --(----)-* 0.6 1.3 CBC Name Units Result Min Max Hemoglobin g/dl 12.1 *-(----)-- 13.5 17.5 Procedure Procedure Types Cath Procedure Diagnostic Procedure [facility] w/Coronaries FFR/IVUS Intra-Coronary IVUS Initial PCI Procedure Coronary Stent Coronary Stent Initial x2 Procedure Description Procedure Date Procedure Date: 08/15/2018 Procedure Start Time: 9:42 Procedure End Time: 10:07 Procedure Staff Name Function Chintan Andres MD Performing Physician Fito Flores RN Nurse Mary Apple RT Scrub Jesse Richards RT Monitor Procedure Data Cath Procedure Fluoroscopy Diagnostic fluoroscopy Total fluoroscopy Time: 5.8 time: 5.8 min min Diagnostic fluoroscopy Total fluoroscopy dose: 545 dose: 545 mGy mGy Contrast Material Contrast Material Type Amount (ml) Isovue 300 123 Entry Location Entry Primary Successful Side Size Upsize Upsize Entry Closure Succes sful Closure Location (Fr) 1 (Fr) 2 (Fr) Remarks Device Remarks Femoral Right 5 Fr 6 Fr Exoseal artery Short Estimated blood loss: 10 ml Diagnostic catheters Device Type Used For End Catheter Placement MULTIPACK Pigtail 5 Fr Procedure catheter MULTIPACK JL 4.0 5Fr Procedure catheter MULTIPACK 3DRC 5Fr Procedure catheter Procedure Complications No complications Procedure Medications Medication Administration Route Dosage Oxygen etCO2 Nasal cannula 2 l/min Heparin Flush Bag added to field 2 bags (1000units/500ml NS) 0.9% NaCl I.V. 100 ml/hr Lidocaine 2% added to field 20 Fentanyl I.V. 50 mcg Versed I.V. 1 mg Fentanyl I.V. 50 mcg Versed I.V. 1 mg Heparin Bolus I.V. 4000 units Hemodynamics Rest BSA: 2.3 (m2) HGB: 12.1 (g/dl) O2 Consumption: Estimated: 258.43 (ml/min) O2 Con sumption indexed: Estimated:112.36 (ml/min/m) Heart Rate: 67 (bpm) Snapshots Pre Cath Intra NCS Post Cath Vital Signs Time Heart Resp SPO2 etCO2 NIBP (mmHg) Rhythm Pain Sedation Rate (ipm) (%) (mmHg) Status Level (bpm) 9:28:43 64 17 100 0 135/75(115) NSR 0 (11) 10(A) , No pain 9:32:59 66 17 100 0 134/76(107) NSR 0 (11) 10(A) , No pain 9:37:18 67 17 98 0 130/66(105) NSR 0 (11) 10(A) , No pain 9:41:32 69 16 97 0 130/79(95) NSR 0 (11) 9(A) , No pain 9:45:48 61 17 97 0 127/76(94) NSR 0 (11) 9(A) , No pain 9:50:02 73 16 97 0 121/75(94) NSR 0 (11) 9(A) , No pain 9:54:55 73 17 98 3.7 122/67(95) NSR 0 (11) 9(A) , No pain 9:59:06 74 17 97 4.4 129/74(100) NSR 0 (11) 9(A) , No pain 10:03:20 72 16 97 3.7 135/79(107) NSR 0 (11) 9(A) , No pain 10:06:00 73 16 96 3.7 136/80(105) NSR 0 (11) 9(A) , No pain Medications Time Medication Route Dose Verified Delivered Reason Notes Effectiveness by by 9:27:02 Oxygen etCO2 2 Chintan Fito Per physician Nasal l/min Dmitry Flores RN cannula 9:27:11 Heparin Flush added 2 Chintan Fito used for Bag to bags Dmitry Flores RN procedure (1000units/500ml field NS) 9:27:21 0.9% NaCl I.V. 100 Chintan Fito Per physician ml/hr Dmitry Flores RN 9:27:31 Lidocaine 2% added 20ml Chintan Ftio used for to vial Dmitry Flores RN procedure field 9:38:56 Fentanyl I.V. 50 Chintan Fito for sedation mcg Dmitry Flores RN 9:39:02 Versed I.V. 1 mg Chintan Fito for sedation Dmitry Flores RN 9:41:48 Fentanyl I.V. 50 Chintan Fito for sedation mcg Dmitry Flores RN 9:41:51 Versed I.V. 1 mg Chintan Fito for sedation Dmitry Flores RN 9:53:23 Heparin Bolus I.V. 4000 Chintan Fito for units Dmitry Flores RN anticoagulation Procedure Log Time Note 8:53:58 Time tracking: Regular hours (M-F 7:00 - 5:00) 8:54:01 Plan of Care:Hemodynamics will remain stable., Cardiac rhythm will remain stable., Comfort level will be maintained., Respiratory function will remain adequate., Patient/ family verbilizes understanding of procedure., Procedure tolerated without complication., Recovers from procedure without complications.. 9:05:09 Jesse Richards RT(R) sent for patient. Start room use. 9:17:55 Admit Source: Emergency department 9:18:04 Patient Height : 71 inches 9:18:14 Patient Weight : 245.51 lbs 9:18:24 Patient received from ED to CCL 3 Alert and oriented. Tansferred to table in Supine position. 9:18:25 Warm blankets applied, and gulshan hugger turned on for patient comfort. 9:18:25 Correct patient and procedure confirmed by team. 9:18:26 Signed procedure consent form obtained from patient. 9:18:27 ECG and BP/O2 sat monitors applied to patient. 9:18:29 Full Disclosure recording started 9:27:02 Oxygen 2 l/min etCO2 Nasal cannula was administered by Fito Flores RN; Per physician; 9:27:11 Heparin Flush Bag (1000units/500ml NS) 2 bags added to field was administered by Fito Flores RN; used for procedure; 9:27:21 0.9% NaCl 100 ml/hr I.V. was administered by Fito Florse RN; Per physician; 9:27:31 Lidocaine 2% 20ml vial added to field was administered by Fito Flores RN; used for procedure; 9:27:33 Vital chart was started 9:29:05 Baseline sample Acquired. 9:29:11 Rhythm: sinus rhythm 9:29:16 H&P Date Dictated: 08/15/2018 Emergent; H&P N/A. 9:29:16 Pre-procedure instructions explained to patient. 9:29:17 Pre-op teaching completed and patient verbalized understanding. 9:29:19 Family in waiting room. 9:29:20 Patient NPO since Midnight. 9:29:25 Is the patient allergic to Iodine/contrast media? No. 9:29:29 Is patient on blood thinner?Yes 9:29:31 ACC The patient was administered the following blood thiners within the last 24 hours: ACCPlavix 9:29:33 Patient diabetic? Yes. 9:29:57 If diabetic: On Metformin? No 9:30:03 Previous problem with sedation/anesthesia? No ? 9:30:05 Snore? Yes 9:30:06 Sleep apnea? Yes 9:30:07 Deviated septum? No 9:30:08 Opens mouth fully? Yes 9:30:09 Sticks out tongue? Yes 9:30:11 Airway obstruction? No ? 9:30:16 Dentures? No ? 9:30:21 Pre procedure: right dorsailis pedis pulse 1+ Palpable, but thready & weak; easily obliterated 9:30:23 Patient pain scale 0/10 ?. 9:30:30 IV patent on arrival in left forearm with 0.9% NaCl at O. 9:30:32 Lab results completed and on chart. 9:30:36 Right groin area was prepped with chlora-prep and draped in sterile fashion 9:30:38 Alarms reviewed by R. N. 9:30:38 Sharps counted by scrub and verified by R.N. 9:30:59 Use device set Femoral Dx 9:31:01 Tegaderm 4 x 4 (1626W) opened to sterile field. 9:31:03 ACIST Hand Control (84102) opened to sterile field. 9:31:03 ACIST Manifold (84607) opened to sterile field. 9:31:05 ACIST Syringe (33745) opened to sterile field. 9:31:05 Bag Decanter (2002S) opened to sterile field. 9:31:06 Medline Cath Pack ([id number]) opened to sterile field. 9:31:09 DIAGNOSTIC Multipack 5Fr catheter set ([id number]) opened to sterile field. 9:31:10 SHEATH 5FR [place] (TQO188) opened to sterile field. 9:38:10 No Charge J wire opened to the field. 9:38:23 --------ALL STOP TIME OUT------ 9:38:23 Final Timeout: patient, procedure, and site verified with staff and physician. All members of the team are in agreement. 9:38:26 Right groin site verified by team. 9:38:32 Fire Safety Assessment: A--An alcohol-based skin anteseptic being used preoperatively., C--Open oxygen or nitrous oxide is being used., D--An ESU, laser, or fiber-optic light is being used. 9:38:36 Physical assessment completed. ASA score P 2 - A patient with mild systemic disease as per Chintan Andres MD. 9:38:39 Sedation plan: IV Moderate Sedation Medication:Versed, Fentanyl 9:38:56 Fentanyl 50 mcg I.V. was administered by Fito Flores RN; for sedation; 9:39:02 Versed 1 mg I.V. was administered by Fito Flores RN; for sedation; 9:41:48 Fentanyl 50 mcg I.V. was administered by Fito Flores RN; for sedation; 9:41:51 Versed 1 mg I.V. was administered by Fito Flores RN; for sedation; 9:42:04 Lab Result : Hemoglobin 12.1 g/dl 9:42:04 Lab Result : Creatinine 1.7 mg/dl 9:42:04 Lab Result : BUN 28 mg/dl 9:42:17 Procedure started. 9:42:22 Local anesthetic to right femoral artery with Lidocaine 2% by Chintan Andres MD.INITIAL ACCESS ONLY 9:45:18 NEEDLE Merit 18G 9cm Percutaneous Entry ([id number]) opened to sterile field. 9:45:54 Zero performed for pressure channel P1 9:45:59 Zero performed for pressure channel P1 9:46:02 Zero performed for pressure channel P1 9:46:04 Zero performed for pressure channel P1 9:46:50 A 5 Fr sheath was inserted into the Right Femoral artery 9:46:55 A MULTIPACK Pigtail 5 Fr catheter was advanced over the wire and used for Procedure. 9:46:59 LV angiography performed. 9:47:04 LV gram done using MENARD 9:47:35 EF : 40 % 9:47:41 Injector settings: Ml/sec: 10, Volume: 20, 9:47:47 Catheter removed. 9:48:31 A MULTIPACK JL 4.0 5Fr catheter was advanced over the wire and used for Procedure. 9:48:50 LCA angiography performed. 9:49:06 Use device set [employer] PCI 9:49:19 SHEATH 6FR [place] (SOG149) opened to sterile field. 9:49:21 CHOICE PT Extra Support 182cm wire ([id number]) opened to sterile field. 9:49:28 INFLATOR Merit BasixCompak (UQ7518) opened to sterile field. 9:49:43 Catheter removed. 9:49:51 A MULTIPACK 3DRC 5Fr catheter was advanced over the wire and used for Procedure. 9:50:45 RCA angiography performed. 9:50:46 Catheter removed. 9:51:29 Sheath upsized to a 6 Fr Short. 9:51:56 [place] IVUS Catheter (03506B) opened to sterile field. 9:51:56 GUIDE 6FR AR 2.0 SH catheter ([id number]) opened to sterile field. 9:52:14 6 Fr AR 2 SH guide catheter was inserted over the wire 9:52:46 CPTXS wire advanced. 9:53:08 Wire advanced across lesion. 9:53:23 Heparin Bolus 4000 units I.V. was administered by Fito Flores RN; for anticoagulation; 9:53:47 IVUS catheter advanced over wire. 9:53:51 IVUS pass to RCA lesion performed. 9:54:19 IVUS catheter removed over wire. 9:56:42 GUIDE 6FR XBLAD 3.5 SH catheter ([id number]) opened to sterile field. 9:57:23 Place stent Inflation Number: 1 A INTEGRITY RX 3.5 x 18 stent ([id number]) was prepped and advanced across the Prox RCA. The stent was deployed at 21 KATIE for 0:10 (min:sec). 9:57:39 Stent catheter was removed intact over wire. 9:57:40 Wire removed. 9:57:40 Guide catheter removed. 9:57:49 6 Fr XBLAD 3.5 SH guide catheter was inserted over the wire 9:58:42 CPTXS wire advanced. 9:59:44 Wire advanced across lesion. 10:00:21 EXOSEAL 6Fr (EX600) opened to sterile field. 10:01:13 Place stent Inflation Number: 1 A INTEGRITY RX 2.5 x 22 stent ([id number]) was prepped and advanced across the Prox LAD. The stent was deployed at 21 KATIE for 0:10 (min:sec). 10:03:44 Stent catheter was removed intact over wire. 10:03:46 Place stent Inflation Number: 2 A INTEGRITY RX 2.5 x 14 stent ([id number]) was prepped and advanced across the Prox LAD. The stent was deployed at 17 KATIE for 0:10 (min:sec). 10:03:49 Stent catheter was removed intact over wire. 10:03:50 Wire removed. 10:03:50 Guide catheter removed. 10:04:05 Sheath removed intact; hemostasis achieved with Exoseal to the Right Femoral artery. 10:04:07 Procedure ended.(Physican Out) 10:05:32 Fluoroscopy time 05.80 minutes. 10:05:37 Fluoroscopy dose: 545 mGy 10:05:37 Flurop Dose total: 545 10:05:41 Contrast amount:Isovue 300 123ml. 10:05:43 Sharps counted by scrub and verified by R.N. 10:05:44 Insertion/operative site no bleeding no hematoma. 10:05:46 Post-op/insertion site Right Femoral artery dressed using a 4 x 4 and Tegaderm. 10:05:47 Post Procedure Pulses reassessed and unchanged 10:05:50 Post-procedure physical assessment completed. ASA score P 2 - A patient with mild systemic disease as per Chintan Andres MD. 10:05:52 Post procedure rhythm: unchanged. 10:05:55 Estimated blood loss: 10 ml 10:05:56 Post procedure instruction explained to patient.Patient verbalizes understanding. 10:05:56 Patient needs reinforcement of post procedure teaching. 10:06:11 Procedure type changed to Cath procedure, Diagnostic procedure, LHC, LHC w/Coronaries, FFR/IVUS, Intra-Coronary IVUS Initial, PCI procedure, Coronary Stent, Coronary Stent Initial x2 10:06:12 Procedure and supply charges have been captured, reviewed, submitted and are correct. 10:06:14 Procedure Complication : No complications 10:07:08 Vital chart was stopped 10:07:09 See physician's report for complete and final results. 10:07:10 Report given to Pre/Post Procedure Room. 10:07:13 Patient transfered to Pre/Post Procedure Room with Stretcher. 10:07:15 Procedure ended. 10:07:15 Full Disclosure recording stopped 10:08:09 End room use (Document Last) Intervention Summary Intervention Notes Time ActionType Lesion and Equipment Action# Pressure Duration Attributes Used 9:57:23 Place stent Prox RCA INTEGRITY RX 1 21 00:10 3.5 x 18 stent ([id number]) 10:01:13 Place stent Prox LAD INTEGRITY RX 1 21 00:10 2.5 x 22 stent ([id number]) 10:03:46 Place stent Prox LAD INTEGRITY RX 2 17 00:10 2.5 x 14 stent ([id number]) Device Usage Item Name Manufacture Quantity Catalog Number Hospital Part Current Mini [facility] Lot# / Charge Number Stock Stock Serial# Code Tegaderm 4 x 3M 1 1626W 437174 [id number] [id number] 5 4 (1626W) ACIST Hand Acist 1 08977 210911 455060 359126 5 Control Medical (32893) Systems Inc ACIST Acist 1 38833 745624 317615 227120 5 Manifold Medical (90453) Systems Inc ACIST Acist 1 61577 436303 083758 063755 20 Syringe Medical (79521) Systems Inc Bag Decanter Microtek 1 2002S 266170 98738 090028 5 (2001S) Medical Inc. Medline Cath Medline 1 [id number] 899664 88496 569220 5 Pack ([id number]) DIAGNOSTIC Cardinal 1 ES2085 731920 61126 636410 30 Multipack Health 5Fr catheter set (UH0847) SHEATH 5FR Terumo 1 HIJ738 351001 321299 573861 5 [place] (GYD844) NEEDLE Merit Merit 1 [id number] 276084 046762 854251 5 18G 9cm Medical Percutaneous Entry ([id number]) MULTIPACK Cardinal 1 486011 5 Pigtail 5 Fr Health catheter MULTIPACK JL Cardinal 1 134510 5 4.0 5Fr Health catheter SHEATH 6FR Terumo 1 SIW640 604896 061075 733904 40 [place] (XAP127) CHOICE PT [place] 1 [id number] 409246 139589 592368 5 Extra Scientific Support 182cm wire ([id number]) INFLATOR Merit 1 HZ3743 207811 973205 789097 15 Merit Medical BasixCompak (HP1279) MULTIPACK Cardinal 1 841923 5 3DRC 5Fr Health catheter Kechi Kechi 1 09509E 828973 982060 862301 8 [place] IVUS Catheter (12390A) GUIDE 6FR AR Medtronic 1 [id number] 308798 48416 689446 1 2.0 SH catheter ([id number]) GUIDE 6FR Cardinal 1 [id number] 511245 875048 852730 3 XBLAD 3.5 SH Health catheter (34063163) INTEGRITY RX Medtronic 1 [id number] 419289 003008 009371 5 [id number] 3.5 x 18 stent ([id number]) EXOSEAL 6Fr Cardinal 1 EX600 414549 397708 479311 10 (EX600) Health INTEGRITY RX Medtronic 1 [id number] 799426 741507 523894 5 [id number] 2.5 x 22 stent ([id number]) INTEGRITY RX Medtronic 1 [id number] 154858 279987 318411 5 [id number] 2.5 x 14 stent ([id number]) Signature Audit [place] Stage Time Signature Unsigned Intra-Procedure 08/15/2018 Jesse Richards 10:10:04 AM RT(R) Signatures Monitor : Jesse Richards RT Signature : Date : Time : [address] [address]
[~2018-08-15 00:33] MED LIST changes: +COLACE100 MG PO
[2018-08-15] MEDS ORDERED: K-DUR20 MEQ PO (00:36)
[2018-08-15] MEDS ORDERED: LASIX20 MG PO (00:36)
[2018-08-15] MEDS ORDERED: LISINOPRIL2.5 MG (00:37)
[2018-08-15] MEDS ORDERED: FLOMAX0.4 MG PO (00:37)
[2018-08-15] MEDS ORDERED: IPRAT-ALBUT 0.5-3 ML UPD (00:37)
[2018-08-15] MEDS ORDERED: PROTONIX40 MG PO (00:37)
--- NOTE | 2018-08-15 01:13 | NUR ---
PT STATES PAIN IS BETTER THAN IT WAS. VSS
[2018-08-15 01:22] LABS: BASOPHILS 0.2 % (0-2); EOSINOPHILS 3.4 % (0-7); HEMATOCRIT 36.9 % (42.0-54.0); HEMOGLOBIN 12.1 g/dL (13.5-17.5); IMMATURE GRANULOCYTES 1.1 % (0-5); LYMPHOCYTES 14.1 % (15-50); MCHC 32.8 g/dL (31.0-37.0); MCV 91.6 fL (80.0-100.0); MEAN PLATELET VOLUME 9.1 fL (7.4-10.4); MONOCYTES 10.3 % (2-11); NEUTROPHILS 70.9 % (40-80); PLATELET COUNT 263 10x3/uL (130-400); RBC 4.03 10x6/uL (4.20-6.10); RDW 13.4 % (11.5-14.5); WBC 10.2 10x3/uL (4.8-10.8)
[2018-08-15 01:30] LABS: APTT 31.3 SECONDS (22.8-39.4)
[2018-08-15 01:31] LABS: D-DIMER-QUANTITATIVE 1.16 ug/mLFEU (0.20-0.54)
--- NOTE | 2018-08-15 01:32 | NUR ---
GAVE PT WARM BLANKET. DENIES PAIN OR OTHER NEEDES AT THIS TIME.
[2018-08-15 01:33] LABS: ALBUMIN 3.1 g/dL (3.4-5.0); ANION GAP 12.6 mmol/L (8-16); BILIRUBIN - TOTAL 0.23 mg/dL (0.2-1.3); CALCIUM 8.3 mg/dL (8.5-10.1); CARBON DIOXIDE 27.3 mmol/L (21.0-32.0); CREATININE - SERUM 1.7 mg/dL (0.6-1.3); POTASSIUM - SERUM 3.9 mmol/L (3.5-5.1); PROTEIN - SERUM 6.3 g/dL (6.4-8.2)
[2018-08-15 01:34] LABS: INR 1.15 (0.85-1.17); PROTIME 14.2 SECONDS (11.6-15.0)
[2018-08-15 01:54] LABS: TROPONIN-I 0.128 ng/mL (0.000-0.060)
--- NOTE | 2018-08-15 03:14 | NUR ---
PT RESTING WITH FAMILY AT BEDSIDE. NO DISTRESS OR PAIN NOTED AT THIS TIME. BED LOW LCOKED POSITON, SIDE RAILS UP TIMES TWO, CALL LIGHT WITHIN REACH. WILL CONTINUE TO MONTIOR FOR CHANGES.
--- NOTE | 2018-08-15 03:26 | NUR ---
NOTIFIED HOUSE SUP TO GET PT PROCEDURE CANCELED FOR IN THE MORNING THAT WAS SCHEDULED FOR BIOPSY OF A LYMPHNODE.
--- NOTE | 2018-08-15 04:56 | NUR ---
PT RESTING. NO DISTRESS NOTED. FAMILY AT BEDSIDE. VSS. SEE FLOW SHEET.
--- NOTE | 2018-08-15 06:26 | NUR ---
PT AMBULATED TO RESTROOM. GAIT STEADY. DENIES PAIN OR NEEDS. FAMILY AT BEDSIDE, VSS, NO DISTRESS NOTED.
--- NOTE | 2018-08-15 07:05 | NUR ---
REPORT RECEIVED FROM OFF GOING NURSE ANTONIO HDZ. PT OBSERVED LYING IN BED. RESPIRATIONS EVEN AND UNLABORED. PT RESTING QUIETLY WITH EYES CLOSED. FAMILY AT THE BEDSIDE.
--- NOTE | 2018-08-15 07:19 | NUR ---
INTERVENTIONAL RADIOLOGY NURSE CALLED AND REPORTS THAT THE PATIENT IS ON THE SCHEDULE FOR AN ABDOMINAL MASS BIOPSY TODAY, HOWEVER THEY WILL NOT BE ABLE TO DO THIS DUE TO THE FACT THAT THE PATIENT HAS HAD 325 MG ASA AND 600 MG PLAVIX IN THE ER COURSE, WILL NOTIFY ADMITTING PCP, PT NOTIFIED.
--- NOTE | 2018-08-15 07:59 | NUR ---
DR. HERNANDEZ AT THE BEDSIDE AT THIS TIME.
[2018-08-15] MEDS ORDERED: PLAVIX75 MG PO (10:29)
--- NOTE | 2018-08-15 10:30 | NUR ---
PT RECEIVED VIA STRETCHER FROM FINANCIAL ASSISTANCE SPECIALIST FOR RECOVERY. PT SLEEPING, VERABALLY AROUSABLE. HR 64 NSR, BP 141/69, O2 SAT 100 ON 2L/NC. R GROIN W 5 FR EXOCELE, DRESSING CDI NO BLEEDING OR SWELLING NOTED. PEDAL PULSES PALPABLE, EXTREMITY WARM AND PINK. CALL LIGHT IN REACH. PT AND FAMILY INSTRUCTED TO KEEP LEG STRAIGHT AND HEAD ON PILLOW.
--- NOTE | 2018-08-15 10:46 | NUR ---
PT RESTING W EYES CLOSED, DENIES CHEST PAIN, HR 64 NSR. R GROIN DRESSING CDI NO BLEEDING OR SWELLING NOTED. CALL LIGHT IN REACH, FAMILY AT BEDSIDE. SIPS OF WATER GIVEN PER REQUEST.
--- NOTE | 2018-08-15 11:15 | NUR ---
PT RESTING W EYES CLOSED, R GROIN DRESSING CDI NO BLEEDING OR SWELLING NOTED. EXTREMITY WARM AND PINK, PEDAL PULSES PALPABLE. FAMILY AT BEDSIDE, CALL LIGHT IN REACH
--- NOTE | 2018-08-15 11:30 | NUR ---
R GROIN SOFT NO BLEEDING OR HEMATOMA NOTED. HR NSR RATE 65, BP 117/66, O2 SAT 100 ON 2L. FAMILY REMAINS AT BEDSIDE, CALL LIGHT IN REACH
--- NOTE | 2018-08-15 12:00 | NUR ---
R GROIN DRESSING REMAINS CDI NO BLEEDING OR SWELLING NOTED. EXTREMITY WARM AND PINK, PEDAL PULSES PALPABLE. DR. HERNANDEZ IN ROOM SPEAKING WITH FAMILY REGARDING PLAN OF CARE. CALL LIGHT IN REACH. VSS
--- NOTE | 2018-08-15 12:30 | NUR ---
PT RESTING COMFORTABLY, GROIN REMAINS W/O BLEEDING OR HEMATOMA. PEDAL PULSES PALPABLE, VSS. CALL LIGHT IN REACH.
--- NOTE | 2018-08-15 13:00 | NUR ---
PT C/O BACK PAIN FROM LYING FLAT, REPOSITIONED FOR COMFORT BUT NO RELIEF. ORDER RECEIVED FOR NORCO. GROIN DRESSING CDI NO BLEEDING OR SWELLING NOTED. CALL LIGHT IN REACH
--- NOTE | 2018-08-15 13:21 | NUR ---
NORCO 10 GIVEN PER ORDER. VSS.
--- NOTE | 2018-08-15 13:30 | NUR ---
HOB ELEVATED SLIGHTLY FOR COMFORT. R GROIN REMAINS SOFT NO BLEEDING OR SWELLING NOTED.
--- NOTE | 2018-08-15 13:51 | NUR ---
TECH HERE PERFORMING ECHO.
--- NOTE | 2018-08-15 14:09 | NUR ---
ECHO COMPLETED. DR PERKINS CALLED REGARDING CONSULT, HE IS NOT GOING TO MAKE IT TO SEE PT TODAY. HE STATED HE DOESN'T NEED TO SEE HIM UNTIL AFTER HE FINISHES CHEMO TO REMOVE THE STENT. R GROIN DRESSING REMAINS CDI NO BLEEDING AND SWELLING. SANDWICH AND DRINK SERVED.
--- NOTE | 2018-08-15 14:20 | NUR ---
IV REMOVED W CATH INTACT, MONITORS AND O2 REMOVED. GROIN SOFT NO BLEEDING OR HEMATOMA NOTED. PT UP TO DRESS FOR DISCHARGE
--- NOTE | 2018-08-15 14:49 | NUR ---
DISCHARGE INSTRUCTIONS REVIEWED W PT AND FAMILY, BOTH VERBALIZED UNDERSTANDING. PT DISCHARGED VIA WC TO PRIVATE VEHICLE
--- NOTE | 2018-08-16 17:10 | OP ---
PATIENT NAME: JOSUÉ RAMON MEDICAL RECORD: [id number] :33 LOCATION:[facility] ADMISSION DATE:08/15/18 SURGEON: DANUTA HERNANDEZ MD DATE OF OPERATION: 08/15/2018 PROCEDURES: 1. PTCA stent RCA. 2. PTCA stent LAD. 3. Intravascular ultrasound RCA. 4. Left heart catheterization. 5. Selective coronary angiography. 6. Left ventriculogram. INDICATION: Unstable angina, acute coronary syndrome, coronary artery disease, hypertension, hyperlipidemia. PROCEDURE IN DETAIL: After informed consent was obtained and after a detailed description of risks, benefits as well as alternative therapies, the patient elected to proceed with angiogram and angioplasty. The right femoral area was prepped and draped in normal sterile fashion. Right femoral artery was cannulated via modified Seldinger technique with placement of 6-Welsh sheath. All catheters exchanged through this sheath. FINDINGS: The left ventriculogram was performed in standard 30-degree MENARD view, reveals global hypokinesis. Overall ejection fraction estimated at 40%. SELECTIVE CORONARY ANGIOGRAPHY: 1. Left main is with no significant angiographic disease. 2. Left anterior descending has 85% stenosis proximally. 3. Right coronary artery has greater than 80% stenosis proximally confirmed by intravascular ultrasound. PTCA STENT OF THE RIGHT CORONARY ARTERY: The stent used was 3.5 x 18 mm Integrity. Result was 0% residual stenosis. CAN OPERATOR STENT OF THE LAD: The stents used were 2.5 x 22 and 2.5 x 14 both Integrity stents. Result was 0% residual stenosis. OVERALL IMPRESSION: Successful percutaneous transluminal coronary angioplasty stent of the left anterior descending and right coronary artery, both going from 85% to 90% initial stenosis to 0% residual. TRANSINT:[id number] Voice Confirmation ID: [id number] DOCUMENT ID: [id number] DANUTA HERNANDEZ MD at 1710 CC: [id number] DICTATION DATE: 08/15/18 1009 FINANCIAL INVESTMENT ADVISER: 08/15/18 1152 DIS IN 08/15/18 [place] [id number] [place] [id number]
--- NOTE | 2018-08-16 17:10 | CN ---
PATIENT NAME:JOSUÉ SIDDIQI MEDICAL RECORD: [id number] : 33 LOCATION:[facility]BR[facility]01 ADMIT DATE: 08/15/18 ACCOUNT: [id number] CONSULTING PHYSICIAN: DANUTA HERNANDEZ MD REFERRING PHYSICIAN: DANUTA HERNANDEZ MD DATE OF CONSULTATION: 08/15/2018 DIAGNOSES: 1. Unstable angina. 2. Coronary artery disease. 3. Previous percutaneous transluminal coronary angioplasty stent. 4. Hypertension. 5. Hyperlipidemia. HISTORY OF PRESENT ILLNESS: Mr. Siddiqi began having severe chest discomfort last night associated with diaphoresis. This has returned multiple times through the night. It is like that of his previous angina. He does have a history of coronary artery disease and previous cardiac and multivessel intervention. His troponin is positive. REVIEW OF SYSTEMS: The patient reports easy bruising but reports no swollen glands. The patient reports no fever, no night sweats, no significant weight gain, no significant weight loss. No significant exercise tolerance. The patient reports no dry eyes, no irritation, no vision change. Patient reports no difficulty hearing and no ear pain. Patient reports no frequent nose bleeds or nose and sinus problems. Patient reports on arm pain on exertion. No shortness of breath while lying down. No history of heart murmur. Patient reports no cough, no wheezing or coughing up blood. Patient reports no abdominal pain, no vomiting. Normal appetite. No diarrhea and not vomiting blood. No nausea and no constipation. Patient reports no incontinence. No difficulty urinating. No hematuria. No increased frequency. Patient reports no muscle aches. No weakness, no arthralgias, no back pain. No swelling of the extremities. Patient reports no abnormal mole, no jaundice, no rashes. Reports no loss of consciousness. No weakness and no numbness. No seizures, dizziness, or headaches. The patient reports no depression, no sleep disturbance, feeling safe in a relationship and no alcohol abuse. Patient reports on fatigue. Reports no runny nose or sinus pressure. No itching, no hives, and no frequent sneezing. PHYSICAL EXAMINATION: GENERAL APPEARANCE: Well-nourished, well-developed, appears stated age. Level of distress, comfortable. PSYCHIATRIC: Mental status, alert, normal affect. Orientation, oriented to time, place and person. EYES: Lids and conjunctiva, noninjected. No discharge, no pallor. ENT: Lips, teeth, gums, normal dentition. Oropharynx, no cyanosis, no pallor. NECK: Carotid arteries, bilateral normal upstroke, no bruits, no thrills. JUGULAR VEINS: No jugular venous pressure or distention. CERVICAL LYMPH NODES: Nontender, nonenlarged. THYROID: Not enlarged. Nontender. No nodules. LUNGS: Respiratory effort, unlabored. CHEST: Normal curvature. No thoracic deformity. No chest wall tenderness. Percussion, resonant. Auscultation, clear. No wheezes, no rales, no rhonchi. CARDIOVASCULAR: Precordial exam, nondisplaced. No heaves or pericardial thrills. Rate and rhythm, regular. Heart sounds, normal S1, normal S2. No S3, CONSULT REPORT [id number] no gallop, no rub. Systolic murmur, not heard. Diastolic murmur, not heard. EXTREMITIES: No cyanosis, no edema. Peripheral pulses, full and equal in all extremities, except as noted. No bruits appreciated. ABDOMEN: Soft, nondistended. Normal aorta. No bruit. Nontender. No masses. Liver, nontender, no hepatomegaly. Spleen, nontender, no splenomegaly. MUSCULOSKELETAL: No joint tenderness. No joint swelling. No erythema. NEUROLOGICAL: Normal gait, normal strength, normal tone. SKIN: Warm and dry. OVERALL IMPRESSION: Unstable angina with a past history of coronary artery disease, multivessel stenting, most likely he has recurrent hemodynamically significant coronary artery disease. We will proceed with coronary angiography. Further care depends upon the findings of the angiography. TRANSINT:[id number] Voice Confirmation ID: [id number] DOCUMENT ID: [id number] DANUTA HERNANDEZ MD at 1710 CC: [id number] DICTATION DATE: 08/15/18 0804 BOOKBINDING MACHINE OPERATOR: 08/15/18 1150 DIS IN 08/15/18 [place] [id number] [place] [address]
== END 2018-08-15 14:51 | disposition home or self-care (01) ==
LOC: D.ER 00:33 → OBSVTIME 02:13 → D.EDHOLD 02:13 → D.CLR 10:30
PROVIDERS: Family Medicine; ADMIT Internal Medicine Interventional Cardiology
DX: I25.110 Atherosclerotic heart disease of native coronary artery with unstable angina pectoris (principal); I10 Essential (primary) hypertension; E78.5 Hyperlipidemia, unspecified

== ENCOUNTER → 2018-08-24 18:13 | Outpatient (CLI) | payer MEDICARE, OTHER ==
[2018-08-15 00:34] VITALS: BMI 34.2
[~2018-08-24 18:13] MED LIST changes: +IPRAT-ALBUT 0.5-3 ML UPD; +K-DUR20 MEQ PO; +LASIX20 MG PO; +LISINOPRIL2.5 MG
== END | disposition home or self-care (01) ==
LOC: D.LABREF 18:13
DX: R31.9 Hematuria, unspecified (principal); D72.829 Elevated white blood cell count, unspecified

== ENCOUNTER 2018-09-18 06:56 | Day surgery (SDC) | payer MEDICARE, OTHER ==
[~2018-09-18] VITALS: Ht 180.3 cm; Wt 110.7 kg
[2018-09-18 07:22] LABS: BASOPHILS 0.3 % (0-2); EOSINOPHILS 5.5 % (0-7); HEMATOCRIT 40.6 % (42.0-54.0); HEMOGLOBIN 13.3 g/dL (13.5-17.5); IMMATURE GRANULOCYTES 0.5 % (0-5); LYMPHOCYTES 24.7 % (15-50); MCH 30.1 pg (26.0-34.0); MCHC 32.8 g/dL (31.0-37.0); MCV 91.9 fL (80.0-100.0); MEAN PLATELET VOLUME 9.2 fL (7.4-10.4); MONOCYTES 9.5 % (2-11); NEUTROPHILS 59.5 % (40-80); PLATELET COUNT 237 10x3/uL (130-400); RBC 4.42 10x6/uL (4.20-6.10); RDW 14.3 % (11.5-14.5); WBC 9.5 10x3/uL (4.8-10.8)
[2018-09-18 07:32] LABS: CALCIUM 8.9 mg/dL (8.5-10.1); CARBON DIOXIDE 32.3 mmol/L (21.0-32.0); POTASSIUM - SERUM 4.3 mmol/L (3.5-5.1)
[2018-09-18 07:36] LABS: INR 1.17 (0.85-1.17); PROTIME 14.4 SECONDS (11.6-15.0)
[2018-09-18 08:12] VITALS: BP 105/53; Ht 180.3 cm; Wt 110.7 kg
--- NOTE | 2018-09-18 11:40 | OP ---
PATIENT NAME: JOSUÉ RAMON MEDICAL RECORD: [id number] :33 LOCATION:D.[facility] ADMISSION DATE: SURGEON: YVETTE ALCAZAR MD DATE OF OPERATION: 09/18/2018 SURGEON: Yvette Alcazar MD ANESTHESIA: TIVA by Dr. Alberto Cain. 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 PROCEDURES: Cystoscopy, right retrograde pyelogram, right ureteral stent exchange. SPECIMENS: Old right ureteral stent. BLOOD LOSS: None. CLINICAL HISTORY: This is an 83-year-old male, who was found to have right hydroureteronephrosis due to retroperitoneal lymphadenopathy from a follicular non-Hodgkin's lymphoma. He has a metal right ureteral stent in place. Unfortunately, he developed a urinary tract infection. He is now on antibiotics for the urinary tract infection, but the metal stent is infected and it needs to be removed. He is having chemotherapy for the lymphoma also. He comes today to have this done and he was given Ancef consumer electronic retail specialist to the OR. DESCRIPTION OF PROCEDURE: The patient was given IV sedation. He was placed into dorsal lithotomy position. A 21-Lithuanian cystoscope was introduced into the bladder. He has an obstructive prostate. With the grasping forceps, we removed entirely the old right ureteral stent. This was sent to pathology for identification. The 5-Lithuanian open-ended ureteral catheter was introduced into the right ureteral orifice and diluted contrast was injected for retrograde pyelogram. A medially deviated ureter with quite extensive stricturing of the ureter was seen. The kidney shows right hydronephrosis. We inserted a Sensor wire through the lumen of the ureteral catheter all the way up to the kidney. The ureteral catheter was then removed. We then introduced the ureteral sheath and ureteral catheter of the CaseMetrix system over the wire into the renal pelvis. A radiopaque marker locates the proximal end of the ureteral sheath. Once the laureano was within the renal pelvis, we then removed the ureteral catheter and removed the wire entirely with the ureteral catheter. Through the lumen of the ureteral sheath, we inserted the 6-Lithuanian x 24 cm metal stent. The stent was pushed in using a pusher. However, we went a little too far with the pusher and the distal end of the stent went into the intramural tunnel of the ureter. We had to use a ureteroscope and a basket to pull the distal end back into the proper position, so that it would coil within the bladder. The bladder was then emptied through the cystoscope sheath and the procedure was finished. I will see the patient in followup in 2 weeks' time to check on the urinalysis and urine culture. TRANSINT:[id number] Voice Confirmation ID: [id number] DOCUMENT ID: [id number] OPERATIVE REPORT [id number] JOSUÉ RAMON ROBERT S MD at 1140 CC: [id number] DICTATION DATE: 09/18/18 1050 RETAIL GREETER: 09/18/18 1122 REG [facility] [address] [place] [address]
== END 2018-09-18 12:45 | disposition home or self-care (01) ==
LOC: D.OPS 06:56 → D.PAN 09:30 → D.OPS 12:45 → D.PAN 14:00
PROVIDERS: Anesthesiology; ATTEND Urology
DX: C82.93 Follicular lymphoma, unspecified, intra-abdominal lymph nodes (principal); N39.0 Urinary tract infection, site not specified; N13.30 Unspecified hydronephrosis; Z79.899 Other long term (current) drug therapy; Z79.2 Long term (current) use of antibiotics

== ENCOUNTER → 2018-10-05 18:01 | Outpatient (CLI) | payer MEDICARE, OTHER ==
[2018-10-03 07:56] VITALS: BMI 34.5
== END | disposition home or self-care (01) ==
LOC: D.LABREF 18:01
PROVIDERS: ATTEND Urology
DX: R31.9 Hematuria, unspecified (principal); D72.829 Elevated white blood cell count, unspecified

== ENCOUNTER 2018-10-23 06:06 | Day surgery (SDC) | payer MEDICARE, OTHER ==
[~2018-10-23] VITALS: Ht 180.3 cm; Wt 113.4 kg
[2018-10-23 06:22] LABS: BASOPHILS 0.3 % (0-2); EOSINOPHILS 6.9 % (0-7); HEMATOCRIT 39.8 % (42.0-54.0); HEMOGLOBIN 13.2 g/dL (13.5-17.5); IMMATURE GRANULOCYTES 0.6 % (0-5); MCH 29.7 pg (26.0-34.0); MCHC 33.2 g/dL (31.0-37.0); MCV 89.4 fL (80.0-100.0); MEAN PLATELET VOLUME 9.1 fL (7.4-10.4); MONOCYTES 8.5 % (2-11); NEUTROPHILS 71.7 % (40-80); PLATELET COUNT 280 10x3/uL (130-400); RBC 4.45 10x6/uL (4.20-6.10); RDW 14.9 % (11.5-14.5); WBC 7.9 10x3/uL (4.8-10.8)
[2018-10-23 06:42] LABS: CALCIUM 9.1 mg/dL (8.5-10.1); CARBON DIOXIDE 30.4 mmol/L (21.0-32.0); CREATININE - SERUM 2.8 mg/dL (0.6-1.3); POTASSIUM - SERUM 5.4 mmol/L (3.5-5.1)
[2018-10-23 06:57] VITALS: BP 90/54; Ht 180.3 cm; Wt 113.4 kg
[2018-10-23 07:07] LABS: APTT 30.4 SECONDS (22.8-39.4); INR 1.15 (0.85-1.17); PROTIME 14.2 SECONDS (11.6-15.0)
--- NOTE | 2018-10-23 15:25 | OP ---
PATIENT NAME: JOSUÉ RAMON MEDICAL RECORD: [id number] :34 LOCATION:D.[facility] ADMISSION DATE: SURGEON: OMAR ALCAZAR MD DATE OF OPERATION: 10/23/2018 SURGEON: Omar Alcazar MD ANESTHESIA: General anesthesia by Violette Blanchard CRNA. DIAGNOSES: Right hydronephrosis due to a retroperitoneal mass from follicular lymphoma. Urinary tract infection with Citrobacter freundii, sensitive to fluoroquinolones as well as Bactrim. PROCEDURE: Cystoscopy, right ureteral stent exchange with a 6-Bolivian x 24 cm Cook Resonance (metal) stent. FINDINGS: Medially deviated ureter with stricture at the L5 vertebral body level, proximal hydronephrosis, no bladder tumors. ESTIMATED BLOOD LOSS: None. CLINICAL HISTORY: This is an 83-year-old male patient who has a history of follicular lymphoma. He has a retroperitoneal mass, which is obstructing his right ureter. I inserted a metal ureteral stent to vent occlusion by the tumor. Unfortunately, he developed urinary tract infection sometime after the right ureteral stent was inserted. He needs to have the metal stent removed and a new one put in due to the contamination with the bacteria. He continues to be on oral Levaquin up to this point. We gave him antibiotics also on-call to the OR. He is not allergic to any medications. DESCRIPTION OF PROCEDURE: The patient was given general anesthetic. He was then placed into lithotomy position and prepped and draped. Fluoroscopy revealed that the old stent was in correct position. Cystoscopy was performed using a 21-Bolivian cystoscope and 30-degree lens. He has mildly obstructive bilateral lateral prostatic lobes. The old ureteral stent was found. Grasping forceps were used and the old stent was entirely removed. We then inserted an open-ended 5-Bolivian ureteral catheter into the right ureteral orifice and a retrograde pyelogram was obtained. This showed proximal hydroureteronephrosis with a medially deviated ureter and occlusion at the L5 level of the ureter. A Sensor wire was placed through the lumen of the ureteral catheter up to the renal pelvis. Once the wire was in correct position, the ureteral catheter was removed entirely. Over the wire, we inserted the ureteral access sheath and ureteral catheter. These are coaxial with each other. This was placed up to the renal pelvis level. At this point, the sheath was left in position while the ureteral catheter and the Sensor wire were removed entirely. Through the lumen of the sheath, we inserted the metal stent. It is a solid metal stent. Once the stent was in correct position, the stent was held in position using the ureteral catheter at its base while the ureteral sheath was removed entirely. At the end of the procedure, the stent was pushed entirely into the bladder using the ureteral catheter. The fluoroscopy revealed that the stent was in perfect position. The bladder was emptied through the cystoscope sheath and then the scope was removed. I will see the patient in followup in 2 weeks' time to recheck the urine for clearance of his infection. TRANSINT:[id number] Voice Confirmation ID: [id number] DOCUMENT ID: [id number] OPERATIVE REPORT [id number] JOSUÉ RAMON, OMAR Alamo MD at 1525 CC: [id number] DICTATION DATE: 10/23/18 0945 WAREHOUSE ORDER SELECTOR: 10/23/18 1450 [facility] 10/23/18 [address] [place] [address]
== END 2018-10-23 11:10 | disposition home or self-care (01) ==
LOC: D.OPS 06:06 → D.PAN 08:10 → D.OPS 08:30
PROVIDERS: Anesthesiology; ATTEND Urology
DX: N39.0 Urinary tract infection, site not specified (principal); N13.30 Unspecified hydronephrosis; B96.89 Other specified bacterial agents as the cause of diseases classified elsewhere; N13.1 Hydronephrosis with ureteral stricture, not elsewhere classified; C82.90 Follicular lymphoma, unspecified, unspecified site; Z01.812 Encounter for preprocedural laboratory examination

== ENCOUNTER → 2018-10-31 11:09 | Outpatient (CLI) | payer MEDICARE, OTHER ==
[2018-10-23 06:57] VITALS: BMI 34.9
[2018-10-31 13:09] LABS: BASOPHILS 0.3 % (0-2); HEMATOCRIT 38.4 % (42.0-54.0); HEMOGLOBIN 12.9 g/dL (13.5-17.5); IMMATURE GRANULOCYTES 0.2 % (0-5); LYMPHOCYTES 14.1 % (15-50); MCHC 33.6 g/dL (31.0-37.0); MCV 89.3 fL (80.0-100.0); MEAN PLATELET VOLUME 9.5 fL (7.4-10.4); NEUTROPHILS 59.4 % (40-80); PLATELET COUNT 226 10x3/uL (130-400); RDW 15.3 % (11.5-14.5); WBC 5.7 10x3/uL (4.8-10.8)
== END | disposition home or self-care (01) ==
LOC: D.LABREF 11:09
PROVIDERS: ATTEND Legal Medicine
DX: C82.08 Follicular lymphoma grade I, lymph nodes of multiple sites (principal); D72.828 Other elevated white blood cell count

== ENCOUNTER → 2018-11-13 17:15 | Outpatient (CLI) | payer MEDICARE, OTHER ==
[2018-10-23 06:57] VITALS: BMI 34.9
[2018-11-13 18:34] LABS: BASOPHILS 0.3 % (0-2); HEMOGLOBIN 12.9 g/dL (13.5-17.5); LYMPHOCYTES 9.5 % (15-50); MCH 29.1 pg (26.0-34.0); MCHC 32.3 g/dL (31.0-37.0); MCV 90.3 fL (80.0-100.0); MEAN PLATELET VOLUME 9.7 fL (7.4-10.4); MONOCYTES 11.5 % (2-11); NEUTROPHILS 73.7 % (40-80); PLATELET COUNT 192 10x3/uL (130-400); RBC 4.43 10x6/uL (4.20-6.10); RDW 15.4 % (11.5-14.5)
== END | disposition home or self-care (01) ==
LOC: D.LABREF 17:15
PROVIDERS: ATTEND Legal Medicine
DX: C82.90 Follicular lymphoma, unspecified, unspecified site (principal)

== ENCOUNTER → 2018-11-14 18:58 | Outpatient (CLI) | payer MEDICARE, OTHER ==
[2018-10-23 06:57] VITALS: BMI 34.9
== END | disposition home or self-care (01) ==
LOC: D.LABREF 18:58
PROVIDERS: ATTEND Urology
DX: Z00.00 Encounter for general adult medical examination without abnormal findings (principal)

== ENCOUNTER 2018-12-04 05:09 | Day surgery (SDC) | payer MEDICARE, OTHER ==
[2018-10-23 06:57] VITALS: Wt 109.3 kg
[2018-12-04 05:26] LABS: BASOPHILS 0.3 % (0-2); EOSINOPHILS 2.5 % (0-7); HEMATOCRIT 40.2 % (42.0-54.0); HEMOGLOBIN 13.6 g/dL (13.5-17.5); IMMATURE GRANULOCYTES 0.5 % (0-5); LYMPHOCYTES 46.3 % (15-50); MCH 30.7 pg (26.0-34.0); MCHC 33.8 g/dL (31.0-37.0); MCV 90.7 fL (80.0-100.0); MEAN PLATELET VOLUME 8.8 fL (7.4-10.4); MONOCYTES 14.5 % (2-11); NEUTROPHILS 35.9 % (40-80); PLATELET COUNT 162 10x3/uL (130-400); RBC 4.43 10x6/uL (4.20-6.10); RDW 16.5 % (11.5-14.5); WBC 8.9 10x3/uL (4.8-10.8)
[2018-12-04 05:37] LABS: APTT 29.7 SECONDS (22.8-39.4); INR 1.11 (0.85-1.17); PROTIME 13.8 SECONDS (11.6-15.0)
[2018-12-04 05:38] LABS: ANION GAP 11.6 mmol/L (8-16); CALCIUM 8.7 mg/dL (8.5-10.1); CARBON DIOXIDE 29.9 mmol/L (21.0-32.0); CREATININE - SERUM 1.7 mg/dL (0.6-1.3); POTASSIUM - SERUM 4.5 mmol/L (3.5-5.1)
--- NOTE | 2018-12-04 09:10 | NUR ---
DC INSTRUCTIONS GIVEN TO PT/FAMILY. STATE UNDERSTANDING. DC'D IV CATH FULLY INTACT. PT LEFT UNIT VIA WC AT 0911
--- NOTE | 2018-12-04 16:00 | OP ---
PATIENT NAME: JOSUÉ RAMON MEDICAL RECORD: [id number] :34 LOCATION:D.[facility] ADMISSION DATE: SURGEON: OMAR ALCAZAR MD DATE OF OPERATION: 12/04/2018 SURGEON: Omar Alcazar MD ANESTHESIA: TIVA by Bethanie Schuler CRNA. DIAGNOSES: Right hydronephrosis due to retroperitoneal lymphadenopathy by follicular lymphoma, urinary tract infection with Enterococcus faecalis. PROCEDURE: Cystoscopy, right retrograde pyelogram, right ureteral stent exchange with a Cook Resonance 6-East Timorese x 24 cm ureteral stent. FINDINGS: On cystoscopy, no bladder tumors. On retrograde pyelogram, there was a medially deviated distal right ureter with proximal hydronephrosis. ESTIMATED BLOOD LOSS: None. CLINICAL HISTORY: This is an 83-year-old male, who has a history of follicular lymphoma. He has developed a right hydronephrosis due to a retroperitoneal mass. He is currently getting chemotherapy for this. He has a Cook Resonance stent in place to deal with the hydronephrosis. Recently developed a urinary tract infection with Enterococcus faecalis. This has been treated with amoxicillin. He requires the stent to be changed due to contamination with the UTI. He is not allergic to any medications. He was given cefazolin vibration engineer to the OR. DESCRIPTION OF PROCEDURE: The patient was given IV sedation. He was then prepped and draped. He is in dorsal lithotomy position. A 21-East Timorese cystoscope with 30-degree lens was used for visualization. Prostatic urethra was nonobstructive. The old stent was visualized. Grasping forceps were used and the old stent was entirely removed. It will be sent to pathology for identification at the end of the case. With the scope back into the bladder, the right ureteral orifice was visualized. An open-ended ureteral catheter was inserted and a retrograde pyelogram was obtained using diluted contrast. Once the pyelogram was obtained showing persistence of the distal ureteral obstruction, we inserted a Sensor wire through the lumen of the ureteral catheter up to the renal pelvis. The ureteral catheter was then removed, leaving the wire in place. Over the wire, we inserted the Cook Resonance ureteral catheter and ureteral sheath. Once the sheath was into the renal pelvis as detected by the radiopaque marker on the tip of the sheath, and then the wire and the ureteral catheter were removed entirely. This left the ureteral sheath only in the ureter. We then inserted the metal Resonance stent through the ureteral sheath. The ureteral catheter was used to push the Resonance stent into position. Once the stent was in position, the ureteral sheath was removed while the ureteral catheter held this stent in place. Finally, the stent was entirely positioned proximally and distally. Fluoroscopy revealed that the stent was in correct position. The bladder was emptied through the cystoscope sheath and the patient was brought back to the preoperative holding area. I will see him in followup in 2 weeks' time to recheck his urine for clearance of infection. I have also continued his antibiotic scripts for another 10 days. OPERATIVE REPORT [id number] JOSUÉ RAMON TRANSINT:[id number] Voice Confirmation ID: [id number] DOCUMENT ID: [id number] OMAR ALCAZAR MD at 1600 CC: [id number] DICTATION DATE: 12/04/18822 RADIOLOGY PHYSICIAN: 12/04/18 1100 [facility] 12/04/18 [address] [place] [address]
== END 2018-12-04 09:11 | disposition home or self-care (01) ==
LOC: D.OPS 05:09 → D.PAN 10:10 → D.OPS 12:15
PROVIDERS: Anesthesiology; ATTEND Urology
DX: N13.30 Unspecified hydronephrosis (principal); R59.0 Localized enlarged lymph nodes; C82.90 Follicular lymphoma, unspecified, unspecified site; N39.0 Urinary tract infection, site not specified; B95.2 Enterococcus as the cause of diseases classified elsewhere; Z01.812 Encounter for preprocedural laboratory examination

== ENCOUNTER → 2018-12-19 17:18 | Outpatient (CLI) | payer MEDICARE, OTHER ==
[2018-10-23 06:57] VITALS: BMI 34.9
== END | disposition home or self-care (01) ==
LOC: D.LABREF 17:18
PROVIDERS: ATTEND Urology
DX: R31.9 Hematuria, unspecified (principal)

== ENCOUNTER 2019-04-08 20:38 | Inpatient (IN) | payer MEDICARE, OTHER ==
[~2019-04-08] VITALS: Ht 180.3 cm; Wt 134.3 kg
[2019-04-08] MEDS ORDERED: LISINOPRIL10 MG PO (20:52)
[2019-04-08] MEDS ORDERED: PLAVIX75 MG PO (20:52)
[2019-04-08] MEDS ORDERED: HYTRIN5 MG PO (20:53)
[2019-04-08 21:31] LABS: HEMATOCRIT 37.1 % (42.0-54.0); HEMOGLOBIN 12.7 g/dL (13.5-17.5); MCH 32.2 pg (26.0-34.0); MCHC 34.2 g/dL (31.0-37.0); MCV 93.9 fL (80.0-100.0); PLATELET COUNT 187 10x3/uL (130-400); RBC 3.95 10x6/uL (4.20-6.10); RDW 13.5 % (11.5-14.5); WBC 2.4 10x3/uL (4.8-10.8)
[2019-04-08 21:42] LABS: APTT 34.7 SECONDS (22.8-39.4); INR 1.13 (0.85-1.17)
[2019-04-08 21:52] LABS: D-DIMER-QUANTITATIVE 2.24 ug/mLFEU (0.20-0.54)
[2019-04-08 22:11] LABS: ALBUMIN 3.5 g/dL (3.4-5.0); ALKALINE PHOSPHATASE 93 U/L (46-116); ALT (SGPT) 31 U/L (10-68); BILIRUBIN - TOTAL 0.57 mg/dL (0.2-1.3); CALC OSMOLALITY 282 mosm/kg (275-300); CALCIUM 8.5 mg/dL (8.5-10.1); CARBON DIOXIDE 31.4 mmol/L (21.0-32.0); CHLORIDE - SERUM 100 mmol/L (98-107); CREATININE - SERUM 1.5 mg/dL (0.6-1.3); GLUCOSE 165 mg/dL (74-106); POTASSIUM - SERUM 4.1 mmol/L (3.5-5.1); PROTEIN - SERUM 6.5 g/dL (6.4-8.2); SODIUM 138 mmol/L (136-145); UREA NITROGEN 22 mg/dL (7-18); eGFR NON AFRICAN AMERICAN 47 mL/min (90-120)
[2019-04-08 22:22] LABS: CKMB 1.9 U/L (0.0-3.6); CREATINE KINASE 158 UL (21-232)
[2019-04-08 22:27] LABS: TROPONIN-I < 0.017 ng/mL (0.000-0.060)
[2019-04-08 22:46] LABS: EOSINOPHILS 16 % (0-7); LYMPHOCYTES 48 % (15-50); MONOCYTES 10 % (2-11); NEUTROPHILS 22 % (40-80); PLATELET ESTIMATE NORMAL
[2019-04-08 23:00] VITALS: BP 135/70
--- NOTE | 2019-04-08 23:30 | NUR ---
PT TAKEN TO VQ AT THIS TIME.
[2019-04-09] VITALS (7 sets, daily range): BP systolic 123–160; BP diastolic 58–90; BMI 32.9
[2019-04-09 05:51] LABS: CKMB 1.7 U/L (0.0-3.6); CREATINE KINASE 134 UL (21-232); TROPONIN-I < 0.017 ng/mL (0.000-0.060)
--- NOTE | 2019-04-09 07:15 | NUR ---
PT IS RESTING IN BED WITH EYES CLOSED. RESPIRATIONS ARE EVEN AND UNLABORED. PT IS EASILY AROUSED WITH VERBAL STIMUALTION. PT REPORTS SLIGHT CHEST PAIN. WILL ADDRESS. SEE EMAR. PT DESCRIBES PAIN PRESSURE. CARDIAC PROTOCOL IS IN PLACE. SEE LAB REVIEW/EKG IN CHART. PT DENIES SOB/DYSPNEA. PT IS AAO X 4 UPON AROUSAL. PT DENIES PRESENCE OF N/V AT THIS TIME. BED IS IN THE LOWEST POSITION. CALL LIGHT AND BEDSIDE TABLE ARE WITHIN REACH. SIDE RAILS X 2. PT DENIES FURTHER NEEDS. WILL CONT TO MONITOR.
[2019-04-09 10:15] LABS: HEMATOCRIT 36.3 % (42.0-54.0); HEMOGLOBIN 12.2 g/dL (13.5-17.5); MCH 32.1 pg (26.0-34.0); MCHC 33.6 g/dL (31.0-37.0); MCV 95.5 fL (80.0-100.0); MEAN PLATELET VOLUME 9.3 fL (7.4-10.4); PLATELET COUNT 203 10x3/uL (130-400); RDW 13.9 % (11.5-14.5); WBC 2.1 10x3/uL (4.8-10.8)
[2019-04-09 10:39] LABS: EOSINOPHILS 24 % (0-7); LYMPHOCYTES 22 % (15-50); MONOCYTES 33 % (2-11); NEUTROPHILS 19 % (40-80); PLATELET ESTIMATE NORMAL
[2019-04-09 10:40] LABS: CKMB 1.9 U/L (0.0-3.6); CREATINE KINASE 163 UL (21-232); TROPONIN-I < 0.017 ng/mL (0.000-0.060)
[2019-04-09 10:41] LABS: ANION GAP 8.8 mmol/L (8-16); CALCIUM 8.5 mg/dL (8.5-10.1); CARBON DIOXIDE 32.4 mmol/L (21.0-32.0); CREATININE - SERUM 1.4 mg/dL (0.6-1.3); MAGNESIUM - SERUM 2.2 mg/dL (1.8-2.4); POTASSIUM - SERUM 4.2 mmol/L (3.5-5.1)
--- NOTE | 2019-04-09 13:09 | NUR ---
PT CURRENTLY HAVING PERIODS OF EMESIS. PT REPORTS CHEST PAIN. AGUSTÍN BARROSO APRN AT BEDSIDE. VERBAL ORDERS RECD TO ADMINISTER 8MG ZOFRAN IV. ORDERS PLACED. INSTRUCTED TO NOTIFY CARDIOLOGY. DR PHELAN.
--- NOTE | 2019-04-09 15:37 | NUR ---
PT RESTING COMFORTABLE IN BED WITH EYES OPEN. RESPIRATIONS ARE EVEN AND UNLABORED. PT FAMILY AT BEDSIDE. PT REPORTS SLIGHT CHEST PAIN/ABDOMINAL PAIN DESCRIBED PRESSURE. PAIN ADDRESSED. SEE EMAR. PT DENIES FURTHER NEEDS.
--- NOTE | 2019-04-09 16:21 | NUR ---
PT REPORTS NAUSEA. AGUSTÍN CEDEÑO NOTIFIED. TELEPHONE ORDERS RECD FOR ZOFRAN 4MG IV Q4 HOURS PRN. WILL PLACE ORDERS.
[2019-04-09 16:23] LABS: CKMB 1.9 U/L (0.0-3.6); CREATINE KINASE 158 UL (21-232); TROPONIN-I < 0.017 ng/mL (0.000-0.060)
--- NOTE | 2019-04-09 18:16 | NUR ---
DR TELLEZ AT BEDSIDE AND NOTIFIED OF + BLOOD CULTURE.
--- NOTE | 2019-04-09 20:00 | NUR ---
A/O WITH NO SIGNS OF ACUTE DISTRESS. LT CHEST PORT ACCESSED WITH NS. STILL COMPLAINING OF PAIN IN THE MIDCHEST. DENIES ANY FURTHER NEEDS AT THIS TIME.
[2019-04-10 01:50] VITALS: BP 150/84
[2019-04-10 04:58] VITALS: BP 162/92
[2019-04-10 06:23] LABS: HEMATOCRIT 38.3 % (42.0-54.0); HEMOGLOBIN 13.2 g/dL (13.5-17.5); MCH 32.4 pg (26.0-34.0); MCHC 34.5 g/dL (31.0-37.0); MCV 94.1 fL (80.0-100.0); PLATELET COUNT 206 10x3/uL (130-400); RBC 4.07 10x6/uL (4.20-6.10); RDW 13.7 % (11.5-14.5)
[2019-04-10 06:36] LABS: ANION GAP 11.5 mmol/L (8-16); CALCIUM 8.8 mg/dL (8.5-10.1); CARBON DIOXIDE 28.7 mmol/L (21.0-32.0); CREATININE - SERUM 1.2 mg/dL (0.6-1.3); MAGNESIUM - SERUM 2.3 mg/dL (1.8-2.4); POTASSIUM - SERUM 4.2 mmol/L (3.5-5.1)
--- NOTE | 2019-04-10 07:00 | NUR ---
PT IS RESTING IN BED WITH EYES CLOSED. RESPIRATIONS ARE EVEN AND UNLABORED. PT IS EASILY AROUSED WITH VERBAL STIMULATION. PT REPORTS PRESENCE OF PRESSURE LIKE DISCOMFORT TO MID EPIGASTRIC/CHEST REGION. PT DENIES NEEDS AT THIS TIME FOR PAIN/DISCOMFORT RELIEF. NUCLEAR MED AT BEDSIDE FOR INJECTION FOR PROCEDURE TODAY. PT REFUSES SCDS. IV INFUSING TO LEFT CHEST PORT WITHOUT DIFFICULTY. BED IS IN THE LOWEST POSITION. CALL LIGHT AND BEDSIDE TABLE ARE WITHIN REACH. PT DENIES FURTHER NEEDS. WILL CONT TO MONITOR.
--- NOTE | 2019-04-10 07:45 | NUR ---
BOWEL SOUNDS ARE VERY FAINT AND HYPOACTIVE X 4 QUADRANTS. PT REQUESTS ASSISTANCE TO BATHROOM TO ATTEMPT TO HAVE A BM. PT REPORTS SLIGHT DIZZINESS UPON STANDING BUT IS RESOLVED QUICKLY PER PT. PT GAIT IS STEADY. PT TO NOTIFY NURSE WITH CALL LIGHT IN BATHROOM WHEN READY FOR ASSISTANCE BACK TO BED.
[2019-04-10 07:48] LABS: EOSINOPHILS 7 % (0-7); LYMPHOCYTES 16 % (15-50); MONOCYTES 48 % (2-11); NEUTROPHILS 26 % (40-80); PLATELET ESTIMATE NORMAL
[2019-04-10 09:03] VITALS: BP 161/90
--- NOTE | 2019-04-10 11:23 | NUR ---
PT SITTING ON TOILET REQUESTING "I HAVE GOT TO HAVE SOMETHING FOR RELIEF. AN ENEMA OR SOMETHING". AGUSTÍN BARROSO APRN NOTIFIED. TELEPHONE ORDERS RECD ARE SUPPOSITORIES X 2 NOW AND IF NO BM REPEAT IN 4 HOURS.
--- NOTE | 2019-04-10 14:35 | MORECARE ---
CASE MANAGEMENT DISCHARGE SUMMARY PATIENT: JOSUÉ RAMON UNIT: [id number] ADM DATE: 04/09/19 AGE: 84 : 34 SEX: M ROOM/BED: D.2230 AUTHOR: DARRENDOC PHYSICIAN: REFERRING PHYSICIAN: MARK TELLEZ MD DATE OF SERVICE: 04/10/19 Discharge Plan Patient Name: JOSUÉ RAMON Facility: [facility]:[place] : 1935 Planned Disposition: Home Anticipated Discharge Date: Discharge Date: Expected LOS: Initial Reviewer: [email or web address] Initial Review Date: 04/10/2019 Generated: 04/10/19 3:35 pm Comments DCP- Discharge Planning Updated by [email or web address]: Cyndie Centeno on 04/10/19 1:[address] Patient Name: JOSUÉ RAMON Admission Status: ER Accout number: [id number] Admission Date: 04-09-2019 : 1935 Admission Diagnosis: Attending: MARK TELLEZ Current LOS: 1 Anticipated DC Date: Planned Disposition: Home Primary Insurance: MEDICARE A & B Discharge Planning Comments: CM met with patient to complete initial dc planning assessment. CM educated patient on the CM role and verbal consent given by patient to complete assessment. Patient lives at home with his and son. States he uses a cane for ambulation, or a walker if out shopping, otherwise is independent with ADL's and AIDL's. At discharge patient plans to return and feels this is a safe discharge. CM discussed availability of home health, rehab services, and medical equipment. Patient denied known discharge needs at this time. CM will continue to follow and will assist as needed with dc plans/needs. Wax Pourer: Cyndie Centeno DCPIA - Discharge Planning Initial Assessment Updated by [email or web address]: Cyndie Centeno on 04/10/19 2:30 pm * Is the patient Alert and Oriented? Yes * How many steps to enter\exit or inside your home? 0/1 flight * PCP Dr. Mariee * Pharmacy [facility] [address] on [address] * Preadmission Environment Home with Family * ADLs Partial Dependent * Partial ADLs (Assistance needed) Ambulation * Equipment Cane Nebulizer Walker * List name and contact numbers for known caregivers / representatives who currently or will assist patient after discharge: Adele Perez mted - [phone] * Verbal permission to speak to the caregivers and representatives has been obtained from the patient. Yes * Community resources currently utilized None * Please name any agencies selected above. DME for nebulizer - [facility] * Additional services required to return to the preadmission environment? No * Can the patient safely return to the preadmission environment? Yes * Has this patient been hospitalized within the prior 30 days at any hospital? No Patient Name: JOSUÉ RAMON Page [phone] at 1435 All edits/amendments must be made on the electronic document DICTATION DATE: 04/10/191434 VP DATA: NERI 04/10/191434 RPT#: [id number] DC DATE: STATUS: ADM IN [facility] [address] [place] [address] END OF REPORT
--- NOTE | 2019-04-10 15:36 | NUR ---
PT SITTING ON TOILET AND STATES "I AM STARTING TO HAVE A LITTLE BIT OF A BOWEL MOVEMENT". PT REQUESTS TO WAIT FOR FURTHER SUPPOSITORY UNTIL FINISHED WITH BM.
--- NOTE | 2019-04-10 15:52 | NUR ---
PT ASSISTED BACK TO BED. PT REPORTS SMALL/MEDIUM SIZED BM. PT DENIES NEED/WANT FOR SUPPOSITORY AT THIS TIME.
[2019-04-10 16:33] VITALS: BP 164/94
--- NOTE | 2019-04-10 16:34 | NUR ---
PIV TO RIGHT WRIST IS RED/TENDER. PIV REMOVED WITH CATHETER TIP INTACT. DRESSING APPLIED. PT REFUSING PIV RESITE ATTEMPTS AT THIS TIME. GUARD IS AT BEDSIDE. BED IS IN THE LOWEST POSITION. CALL LIGHT AND BEDSIDE TABLE ARE WITHIN REACH. SIDE RAILS X 2. GENNA ALARM IS ON AND WORKING. PT PROMPTED TO REPOSITION. PT IS REPOSITIONED TO LEFT SIDE. PILLOWS USED FOR SUPPORT.WILL CONT TO MONITOR.
--- NOTE | 2019-04-10 18:45 | NUR ---
DR TELLEZ AT BEDSIDE. VERBAL ORDERS RECD TO DO (1) ENEMA NOW AND REPEAT IN 2 HOURS IF UNSUCCESSFUL.
[2019-04-10 20:00] VITALS: BP 152/100
[2019-04-11 04:00] VITALS: BP 160/98
[2019-04-11 05:57] LABS: BASOPHILS 0.4 % (0-2); EOSINOPHILS 6.5 % (0-7); HEMATOCRIT 41.2 % (42.0-54.0); HEMOGLOBIN 14.3 g/dL (13.5-17.5); LYMPHOCYTES 30.2 % (15-50); MCH 32.5 pg (26.0-34.0); MCHC 34.7 g/dL (31.0-37.0); MCV 93.6 fL (80.0-100.0); MEAN PLATELET VOLUME 8.7 fL (7.4-10.4); MONOCYTES 44.8 % (2-11); NEUTROPHILS 18.1 % (40-80); PLATELET COUNT 200 10x3/uL (130-400); RDW 13.6 % (11.5-14.5); WBC 2.5 10x3/uL (4.8-10.8)
[2019-04-11 06:37] LABS: ANION GAP 15.8 mmol/L (8-16); CALCIUM 9.2 mg/dL (8.5-10.1); CARBON DIOXIDE 28.3 mmol/L (21.0-32.0); CREATININE - SERUM 1.3 mg/dL (0.6-1.3); MAGNESIUM - SERUM 2.3 mg/dL (1.8-2.4); PHOSPHOROUS 3.3 mg/dL (2.5-4.9); POTASSIUM - SERUM 4.1 mmol/L (3.5-5.1)
--- NOTE | 2019-04-11 07:10 | NUR ---
PT IS RESTING IN BED WITH EYES CLOSED. RESPIRATIONS ARE EVEN AND UNLABORED. PT REPORTS THAT HE HAD "A LIQUID SQUIRT" BM THIS AM BUT FEELS THOUGH HE STILL NEEDS TO HAVE A BM. BS A HYPOACTIVE X 4. ABDOMEN IS DISTENDED AND TENDER UPON PALPATION. PT IS AAO X 4. DENIES PRESENCE OF DYSPNEA/SOB. PT DENIES PRESENCE OF PAIN BUT REPORTS A SLIGHT PRESSURE FEELING IN MID EPIGASTRIC AREA. PT DENIES PRESENCE OF NUMBNESS/TINGLING AT THIS TIME. BED IS IN THE LOWEST POSITION. CALL LIGHT AND BEDSIDE TABLEA RE WITHIN REACH. SIDE RAILS X 2. HEARING AIDS AT BEDSIDE. PT DENIES FURTHER NEEDS. WILL CONT TO MONITOR.
[2019-04-11 09:13] VITALS: BP 176/99
--- NOTE | 2019-04-11 09:29 | NUR ---
PT CONTINUES TO REPORT FEELINGS OF PRESSURE. SPOKE WITH AGUSTÍN BARROOS APRN TO NOTIFY OF PT STATUS. TELEPHONE ORDERS RECD ARE KUB AND MAG CITRATE (1) BOTTLE X [address] ORDERS[address]
--- NOTE | 2019-04-11 10:49 | NUR ---
KUB COMPLETED. BP IS 150/93 LYING DOWN. PT IS REFUSING PO MEDICATION AT THIS TIME. SEE EMAR.
--- NOTE | 2019-04-11 10:55 | NUR ---
PT IS REFUSING PO MEDICATION DUE TO NAUSEA. INFORMED AGUSTÍN BARROSO APRN OF PT STATE. TELEPHONE ORDERS RECD ARE 8MG ZOFRAN BOLUS X 1 NOW AND START ON ZOFRAN DRIP. WILL PLACE ORDERS.
--- NOTE | 2019-04-11 12:05 | NUR ---
NUTRITION F/U CHART REVIEWED. PT CURRENTLY NPO FOR PROCEDURE. WILL PROVIDE DIET WHEN RESUMED, MONITOR PO INTAKE. RD FOLLOWING
[2019-04-11 12:14] VITALS: BP 127/84
--- NOTE | 2019-04-11 14:27 | NUR ---
VERBAL ORDERS RECD FROM DANIKA BARROSO APRN TO INSERT NG TUBE AND SET TO LIS ONCE PLACEMENT HAS BEEN VERIFIED.
--- NOTE | 2019-04-11 14:28 | NUR ---
14FR NG TUBE PLACED TO RIGHT NARE. ORDERS PLACED TO VERIFY PLACEMENT.
[2019-04-11 15:08] LABS: INR 1.07 (0.85-1.17); PROTIME 13.4 SECONDS (11.6-15.0)
[2019-04-11 15:10] LABS: AMYLASE - SERUM 109 U/L (25-115); LIPASE 551 U/L (73-393)
[2019-04-11 15:23] LABS: ALBUMIN 3.7 g/dL (3.4-5.0); BILIRUBIN - DIRECT 0.18 mg/dL (0.00-0.30); BILIRUBIN - INDIRECT 0.37 mg/dL (0.00-1.00); BILIRUBIN - TOTAL 0.55 mg/dL (0.2-1.3); PROTEIN - SERUM 6.8 g/dL (6.4-8.2)
--- NOTE | 2019-04-11 16:40 | NUR ---
180ML OF CONTRAST ADIMINISTERED VIA NG TUBE. PT STATES THAT IS ALL HE "CAN TOLERATE IM STARTING TO FEEL FULL". CONTRAST FLUSHED WITH 30ML H2O. PT IS RESTING IN BED COMFORTABLE. PREACHER IS AT BEDSIDE SIDE. PT DENIES FURTHER NEEDS AT THIS TIME.
--- NOTE | 2019-04-11 16:54 | NUR ---
CT ON FLOOR TO TRANSPORT PT TO CT VIA WHEELCHAIR.
[2019-04-11 17:07] VITALS: BP 182/99
--- NOTE | 2019-04-11 17:55 | NUR ---
SPOKE WITH NIECY GUTIERREZ APRN. OK TO SET NG TUBE TO LIS AT THIS TIME.
[2019-04-11 20:00] VITALS: BP 164/105
--- NOTE | 2019-04-11 20:00 | NUR ---
AWAKE,ALERT,NO COMPLAITNS VOICED. NG TO RIGHT NARE INTACT AND CONNECTED TO LIS. ABD FIRM AND DISTENDED. IV TO LEFT CHEST PORT INTACT WITHOUT REDNESS OR EDEMA NOTED. RESP UNALBORED. CL IN REACH
[2019-04-12] VITALS: BP 178/100
--- NOTE | 2019-04-12 01:09 | NUR ---
I have reviewed this patient and I concur with the Shift Assessment completed by the Licensed Practical Nurse today this shift.
[2019-04-12 06:04] LABS: HEMOGLOBIN 14.1 g/dL (13.5-17.5); MCH 31.9 pg (26.0-34.0); MCHC 34.4 g/dL (31.0-37.0); MCV 92.8 fL (80.0-100.0); MEAN PLATELET VOLUME 9.5 fL (7.4-10.4); PLATELET COUNT 229 10x3/uL (130-400); RBC 4.42 10x6/uL (4.20-6.10); RDW 13.7 % (11.5-14.5); WBC 2.6 10x3/uL (4.8-10.8)
[2019-04-12 06:23] LABS: ANION GAP 13.7 mmol/L (8-16); CALCIUM 8.8 mg/dL (8.5-10.1); CARBON DIOXIDE 29.6 mmol/L (21.0-32.0); CREATININE - SERUM 1.1 mg/dL (0.6-1.3); PHOSPHOROUS 2.7 mg/dL (2.5-4.9); POTASSIUM - SERUM 4.3 mmol/L (3.5-5.1)
[2019-04-12 06:24] LABS: MAGNESIUM - SERUM 2.9 mg/dL (1.8-2.4)
[2019-04-12 06:59] LABS: EOSINOPHILS 3 % (0-7); LYMPHOCYTES 23 % (15-50); MONOCYTES 45 % (2-11); NEUTROPHILS 27 % (40-80); PLATELET ESTIMATE NORMAL
--- NOTE | 2019-04-12 08:00 | NUR ---
ASSESSMENT PER FLOW SHEET. PT IS WITHOUT DISTRESS.FALL PREVENTION INITIATED.CALL LIGHT IN REACH
[2019-04-12 08:44] VITALS: BP 166/105
--- NOTE | 2019-04-12 12:12 | MORECARE ---
CASE MANAGEMENT DISCHARGE SUMMARY PATIENT: JOSUÉ RAMON UNIT: [id number] ADM DATE: 04/09/19 AGE: 84 : 34 SEX: M ROOM/BED: D.2230 AUTHOR: RUBENS BANKS PHYSICIAN: REFERRING PHYSICIAN: MARK TELLEZ MD DATE OF SERVICE: 04/12/19 Discharge Plan Patient Name: JOSUÉ RAMON Facility: [facility]:[place] : 1935 Planned Disposition: Home Anticipated Discharge Date: Discharge Date: Expected LOS: Initial Reviewer: [email or web address] Initial Review Date: 04/10/2019 Generated: 04/12/19 1:12 pm Comments DCP- Discharge Planning Updated by [email or web address]: Cyndie Centeno on 04/12/19 11:[address] I received an email from patient's family member, Josi Evans, concerning patient's condition. I met with patient and he states it is ok to give her information. Kylee (family member) is in the room speaking with Celeste Lira and questions answered. I called Josi ([phone]) and left my phone number if she has further questions and also informed her that her family member (Kylee) may be able to answer questions for her as well. CM will continue to follow and assist with discharge planning/needs. DCP- Discharge Planning Updated by [email or web address]: Cyndie Jacobo on 04/10/19 1:[address] Patient Name: JOSUÉ RAMON Admission Status: ER Accout number: [id number] Admission Date: 04-09-2019 : 1935 Admission Diagnosis: Attending: MARK TELLEZ Current LOS: 1 Anticipated DC Date: Planned Disposition: Home Primary Insurance: MEDICARE A & B Discharge Planning Comments: CM met with patient to complete initial dc planning assessment. CM educated patient on the CM role and verbal consent given by patient to complete assessment. Patient lives at home with his and son. States he uses a cane for ambulation, or a walker if out shopping, otherwise is independent with ADL's and AIDL's. At discharge patient plans to return and feels this is a safe discharge. CM discussed availability of home health, rehab services, and medical equipment. Patient denied known discharge needs at this time. CM will continue to follow and will assist as needed with dc plans/needs. Capability Lead: Cyndie Centeno DCPIA - Discharge Planning Initial Assessment Updated by [email or web address]: Cyndie Centeno on 04/10/19 2:30 pm * Is the patient Alert and Oriented? Yes * How many steps to enter\exit or inside your home? 0/1 flight * PCP Dr. Mariee * Pharmacy [facility] [address] * Preadmission Environment Home with Family * ADLs Partial Dependent * Partial ADLs (Assistance needed) Ambulation * Equipment Cane Nebulizer Walker * List name and contact numbers for known caregivers / representatives who currently or will assist patient after discharge: Adele Perez zojj - [phone] * Verbal permission to speak to the caregivers and representatives has been obtained from the patient. Yes * Community resources currently utilized None * Please name any agencies selected above. DME for nebulizer - [facility] * Additional services required to return to the preadmission environment? No * Can the patient safely return to the preadmission environment? Yes * Has this patient been hospitalized within the prior 30 days at any hospital? No Last DP export: 04/10/19 1:35 p Patient Name: JOSUÉ RAMON Page [id number] at 1212 All edits/amendments must be made on the electronic document DICTATION DATE: 04/12/19 1212 [employer]ET INSIGHTS: NERI 04/12/19 1212 RPT#: [id number] DC DATE: STATUS: ADM IN [facility] [address] [place] [address] END OF REPORT
[2019-04-12 14:09] VITALS: BP 148/98
[2019-04-12 14:33] VITALS: BP 148/98
[2019-04-12 17:14] VITALS: Ht 180.3 cm; Wt 134.3 kg
[2019-04-12 18:02] VITALS: BP 176/102
--- NOTE | 2019-04-12 18:24 | NUR ---
RESTING,WITHOUT SIGNS OF DISTRESS.REMAINS WITHOUT CHANGE.CONT PLAN OF CARE
[2019-04-12 20:00] VITALS: BP 148/97
--- NOTE | 2019-04-12 23:59 | NUR ---
A/O WITH NO SIGNS OF ACUTE DISTRESS NOTED. LT CHEST PORT ACCESSED WITH NO SWELLING OR REDNESS AT SITE. NO TUBE WITH DARK GREEN DRAINAGE NOTED. VERIFIED PLACEMENT WITH 20 ML OF AIR AND NOSE PIECE SECURED WITH TAPE. GENNA ALARM ON. COMPLAINING OF 8/10 PAIN. DENIES FURTHER NEEDS AT THIS TIME. CONTINUE WITH PLAN OF CARE.
[2019-04-13] VITALS: BP 148/97
--- NOTE | 2019-04-13 01:30 | NUR ---
CHIRAG DRIP BAG EMPTY. NOTIFIED BRANCH SERVICE REPRESENTATIVE AND WAS GIVEN INSTRUCTIONS ON HOW TO MAKE THE BAG. MIXED BAG AND HUNG UP. CONTINUE PLAN OF CARE.
[2019-04-13 03:57] VITALS: BP 172/80
--- NOTE | 2019-04-13 04:27 | NUR ---
REASSED BP OF 162/88. GAVE PRN PAIN MED. WILL CONTINUE TO MONITOR.
[2019-04-13 06:11] LABS: BASOPHILS 0.8 % (0-2); HEMATOCRIT 40.8 % (42.0-54.0); HEMOGLOBIN 13.8 g/dL (13.5-17.5); IMMATURE GRANULOCYTES 0.8 % (0-5); LYMPHOCYTES 36.5 % (15-50); MCH 32.1 pg (26.0-34.0); MCHC 33.8 g/dL (31.0-37.0); MEAN PLATELET VOLUME 9.2 fL (7.4-10.4); MONOCYTES 36.5 % (2-11); NEUTROPHILS 19.4 % (40-80); PLATELET COUNT 211 10x3/uL (130-400); RDW 14.1 % (11.5-14.5); WBC 2.5 10x3/uL (4.8-10.8)
[2019-04-13 06:14] LABS: MCV 94.9 fL (80.0-100.0)
[2019-04-13 06:28] LABS: AMYLASE - SERUM 126 U/L (25-115); CALC OSMOLALITY 280 mosm/kg (275-300); CALCIUM 8.8 mg/dL (8.5-10.1); CARBON DIOXIDE 30.9 mmol/L (21.0-32.0); CHLORIDE - SERUM 101 mmol/L (98-107); GLUCOSE 161 mg/dL (74-106); LIPASE 923 U/L (73-393); MAGNESIUM - SERUM 2.9 mg/dL (1.8-2.4); PHOSPHOROUS 2.7 mg/dL (2.5-4.9); POTASSIUM - SERUM 4.1 mmol/L (3.5-5.1); SODIUM 138 mmol/L (136-145); UREA NITROGEN 18 mg/dL (7-18); eGFR NON AFRICAN AMERICAN 75 mL/min (90-120)
[2019-04-13 08:18] VITALS: BP 171/66
--- NOTE | 2019-04-13 09:00 | NUR ---
ALERT AND OIRENTED X4. OVF TO LT. INFUSAPORT INFUSING AT PRESCRIBED RATE. TELEMETRY INTACT. RESP EVEN AND UNLABORED.HRRR AND DENIES ANY CHEST PAIN OR DISCOMFORT. MORPHINE GIVEN FOR PAIN AND EFFECTIVE. ENCOURAGED TO USE CALL LIGHT FOR ASSSIT.
[2019-04-13 17:00] VITALS: BP 152/90
[2019-04-13 20:01] VITALS: BP 161/96
[2019-04-14] VITALS: BP 167/97
[2019-04-14 04:00] VITALS: BP 150/91
[2019-04-14 05:39] LABS: HEMATOCRIT 40.9 % (42.0-54.0); HEMOGLOBIN 13.5 g/dL (13.5-17.5); MCH 31.6 pg (26.0-34.0); MCV 95.8 fL (80.0-100.0); MEAN PLATELET VOLUME 9.4 fL (7.4-10.4); PLATELET COUNT 188 10x3/uL (130-400); RBC 4.27 10x6/uL (4.20-6.10); RDW 14.1 % (11.5-14.5); WBC 2.4 10x3/uL (4.8-10.8)
[2019-04-14 05:54] LABS: ALBUMIN 3.3 g/dL (3.4-5.0); ANION GAP 9.2 mmol/L (8-16); BILIRUBIN - TOTAL 0.55 mg/dL (0.2-1.3); CALCIUM 8.7 mg/dL (8.5-10.1); CREATININE - SERUM 1.2 mg/dL (0.6-1.3); POTASSIUM - SERUM 4.2 mmol/L (3.5-5.1); PROTEIN - SERUM 6.5 g/dL (6.4-8.2)
[2019-04-14 07:14] LABS: BASOPHILS 1 % (0-2); EOSINOPHILS 2 % (0-7); LYMPHOCYTES 60 % (15-50); MONOCYTES 3 % (2-11); NEUTROPHILS 31 % (40-80)
[2019-04-14 07:18] LABS: PLATELET ESTIMATE NORMAL
[2019-04-14 08:11] VITALS: BP 180/103
--- NOTE | 2019-04-14 10:21 | NUR ---
PT RESTING IN BED. NO SIGNS OF DISTRESS. IV TO LEFT CHEST PATENT NO REDNESS OR TENDERNESS. ON TELEMETRY 104 ST. HAS NG TUBE. COMPLAINS OF PAIN. MEDICATIONS GIVEN. DENIES ANY FURTHER NEED AT THIS TIME. CALL LIGHT IN REACH. BED LOW POSITION. NO FAMILY AT BEDSIDE.
[2019-04-14 14:11] VITALS: BP 148/80
--- NOTE | 2019-04-14 15:59 | NUR ---
I have reviewed this patient and I concur with the Shift Assessment completed by the Licensed Practical Nurse today this shift.
[2019-04-14 16:08] LABS: AEROBE ID Final report (())
--- NOTE | 2019-04-14 17:31 | NUR ---
ATTEMPTED MRI MRCP ON PATIENT. PATIENT REFUSED TO CONTINUE BEFORE COMPLETION OF MRCP, ABDOMEN WITHOUT WAS COMPLETED. PER DR MICHAEL, RADIOLOGIST, REQUEST WAS CHANGED TO MRI ABDOMEN WITHOUT AND STUDY WAS SUBMITTED TO BE READ. DR BYNUM WAS NOTIFIED THAT PATIENT REFUSED TO COMPLETE MRCP DUE TO DIFFICULTY BREATHING AND PAIN, BUT ABDOMEN WITHOUT WAS COMPLETED. DR BYNUM SAID TO ATTEMPT MRCP TOMORROW.
[2019-04-14 20:00] VITALS: BP 184/102
--- NOTE | 2019-04-15 02:11 | NUR ---
OMI NEAL ALERT AND ORENTED ABLE TO VOICE NEEDS AND WANTS TO STAFF. IV IT PROT TO LEFT CHEST WITH NS AT 50 ML/HR, PROCAL AT 50 ML/HR, ZOFRAN AT 4.7 ML/HR. TELEMETRY IN PLACE. f/c WITH PARISH URINE TO BAG. REMOVED AT START OF SHIFT. CALL LIGHT IN REACH.
[2019-04-15 04:00] VITALS: BP 148/92
[2019-04-15 06:09] LABS: HEMOGLOBIN 13.6 g/dL (13.5-17.5); MCH 32.2 pg (26.0-34.0); MCHC 33.2 g/dL (31.0-37.0); MCV 97.2 fL (80.0-100.0); MEAN PLATELET VOLUME 9.5 fL (7.4-10.4); PLATELET COUNT 173 10x3/uL (130-400); RBC 4.22 10x6/uL (4.20-6.10); RDW 14.3 % (11.5-14.5); WBC 2.1 10x3/uL (4.8-10.8)
[2019-04-15 06:24] LABS: ALBUMIN 3.3 g/dL (3.4-5.0); ANION GAP 8.9 mmol/L (8-16); BILIRUBIN - TOTAL 0.96 mg/dL (0.2-1.3); CALCIUM 8.5 mg/dL (8.5-10.1); CARBON DIOXIDE 32.1 mmol/L (21.0-32.0); CREATININE - SERUM 1.3 mg/dL (0.6-1.3); PROTEIN - SERUM 6.5 g/dL (6.4-8.2)
[2019-04-15 07:31] LABS: EOSINOPHILS 13 % (0-7); LYMPHOCYTES 14 % (15-50); MONOCYTES 54 % (2-11); NEUTROPHILS 19 % (40-80)
[2019-04-15 07:38] LABS: PLATELET ESTIMATE NORMAL
[2019-04-15 08:43] VITALS: BP 134/82
[2019-04-15 11:53] VITALS: BP 143/88
--- NOTE | 2019-04-15 13:51 | NUR ---
OT NOTE: ATTEMPTED EVAL TODAY. PT REFUSED.. REFUSED ALL THERAPY. KARAN SALAZAR, OTR/L
[2019-04-15 15:55] LABS: CKMB 2.9 U/L (0.0-3.6); CREATINE KINASE 83 UL (21-232); TROPONIN-I 0.029 ng/mL (0.000-0.060)
[2019-04-15 16:55] VITALS: BP 132/75
--- NOTE | 2019-04-15 18:22 | NUR ---
ALERT AND ORIENTED, SITTING UP IN CHAIR. NO C/O PAIN. NO S/S OF ACUTE DISTRESS NOTED. PT DENIES ANY NEEDS AT THIS TIME. CALL LIGHT IN REACH.
--- NOTE | 2019-04-15 19:20 | NUR ---
UP IN CHAIR, REQUESTING TO LAY IN BED, THIS NURSE AND STAFF OFFERED MINIMAL ASSIST, IV TO LEFT WRIST INFUSING PER ORDERS, SHOWS NO S/S OF ANY ACUTE DISTRESS. ABLE TO VOICE ALL NEEDS. WILL NOTE ANY CHANGE.
[2019-04-15 20:15] VITALS: BP 109/62
--- NOTE | 2019-04-15 21:03 | NUR ---
AT 2030 REQUESTED PAIN MEDS, DILAUDID GIVEN PER ORDERS. NO S/S OF ANY ACUTE DISTRESS NOTED.
[2019-04-15 22:10] LABS: CKMB 3.4 U/L (0.0-3.6); CREATINE KINASE 104 UL (21-232); TROPONIN-I < 0.017 ng/mL (0.000-0.060)
[2019-04-16] VITALS (11 sets, daily range): BP systolic 91–145; BP diastolic 53–79
--- NOTE | 2019-04-16 00:33 | NUR ---
UNCOMFORTABLE, CRYING OUT IN PAIN TO ABDOMEN AREA. PRN DILAUDID GIVEN PER ORDERS WITH ZOFRAN. WILL NOTE ANY CHANGE.
--- NOTE | 2019-04-16 03:58 | NUR ---
I have reviewed this patient and I concur with the Shift Assessment completed by the Licensed Practical Nurse today this shift.
--- NOTE | 2019-04-16 04:00 | NUR ---
REPORTED TO THIS NURSE THAT PT WAS IN BED YELLING OUT FOR HELP, UPON ENTRANCE STAFF NOTED TELEMETRY ON FLOOR AND PORT ACCESS IV WAS LYING IN BED BESIDE HIM, HE WAS YELLING OUT IN PAIN UPON THIS NURSE ASSESSMENT, NORCO GIVEN PER ORDER PT IS UNABLE TO COOPERATE WITH NURSING STAFF TO REACCESS PORT AT THIS TIME, NURSING STAFF WILL ATTEMPT TO MAKE PT MORE COMFORTABLE USING INTERVENTIONS AND ATTMEPT TO REACCESS WHEN PT IS MORE CALM.
--- NOTE | 2019-04-16 04:35 | NUR ---
RESTING QUIETLY IN BED AT THIS TIME, WILL NOTE CHANGE.
--- NOTE | 2019-04-16 04:48 | NUR ---
CRYING OUT IN BED WITH STOMACH PAINS, THIS NURSE HAS OFFERED A PILLOW FOR SUPPORT, HE IS HOLDING IT IN HUGGING FASHION AT THIS TIME. WILL NOTE ANY CHANGE.
[2019-04-16 06:01] LABS: HEMATOCRIT 33.5 % (42.0-54.0); MCH 31.6 pg (26.0-34.0); MCHC 31.6 g/dL (31.0-37.0); MEAN PLATELET VOLUME 9.7 fL (7.4-10.4); RDW 14.4 % (11.5-14.5)
[2019-04-16 06:03] LABS: HEMOGLOBIN 10.6 g/dL (13.5-17.5); PLATELET COUNT 108 10x3/uL (130-400); RBC 3.35 10x6/uL (4.20-6.10)
[2019-04-16 06:05] LABS: WBC 1.3 10x3/uL (4.8-10.8)
--- NOTE | 2019-04-16 06:15 | NUR ---
WBC OF 1.3 NOTED. CALLED IN TO [facility]. PLACE ON NEUTROPENIC PRECAUTIONS. WILL NOTE ANY CHANGE.
[2019-04-16 06:35] LABS: ALKALINE PHOSPHATASE 91 U/L (46-116); AMYLASE - SERUM 176 U/L (25-115); BILIRUBIN - TOTAL 0.78 mg/dL (0.2-1.3); CALCIUM 7.4 mg/dL (8.5-10.1); CARBON DIOXIDE 26.6 mmol/L (21.0-32.0); CHLORIDE - SERUM 106 mmol/L (98-107); CKMB 3.3 U/L (0.0-3.6); CREATINE KINASE 129 UL (21-232); CREATININE - SERUM 1.2 mg/dL (0.6-1.3); SODIUM 139 mmol/L (136-145); UREA NITROGEN 24 mg/dL (7-18); eGFR NON AFRICAN AMERICAN 61 mL/min (90-120)
[2019-04-16 06:38] LABS: ALBUMIN 2.2 g/dL (3.4-5.0); ALT (SGPT) 306 U/L (10-68); CALC OSMOLALITY 280 mosm/kg (275-300); GLUCOSE 79 mg/dL (74-106); LIPASE 1907 U/L (73-393); POTASSIUM - SERUM 5.2 mmol/L (3.5-5.1); PROTEIN - SERUM 4.8 g/dL (6.4-8.2); TROPONIN-I < 0.017 ng/mL (0.000-0.060)
--- NOTE | 2019-04-16 06:46 | NUR ---
FINALLY RESTING WELL THIS SHIFT, REFUSED 0700 MEDS/BS AT THIS TIME. WILL ALLOW TO REST.
[2019-04-16 07:18] LABS: EOSINOPHILS 12 % (0-7); LYMPHOCYTES 23 % (15-50); MONOCYTES 27 % (2-11); NEUTROPHILS 37 % (40-80)
[2019-04-16 07:19] LABS: PLATELET ESTIMATE DECREASED
--- NOTE | 2019-04-16 07:29 | NUR ---
PT IS SITTING ON SIDE OF BED. PT STATES "IM JUST GOING TO ". PT REPORTS PAIN 10/10 TO ABDOMINAL AREA DESCRIBED PRESSURE. PT ANSWERS "I DON'T KNOW" TO ALL QUESTIONS ASKED PERTAINING TO PAIN/NAUSEA/VOMITING. STRENGTH TO BILATERAL UPPER EXTREMITIES ARE EQUAL BUT WEAK. BILATERAL PEDAL PULSES ARE PALPABLE. THAYER CATHETER NOTED AND DRAINING WITHOUT DIFFICULTY. STAT LOCK IN PLACE. BS ARE FAINT AND HYPOACTIVE X 4. FRESH BM IN BEDSIDE COMMODE IS MEDIUM IN SIZE AND LIQUID THAT IS YELLOW/GREEN. PT DENIES PAIN WITH BM. LEFT CHEST PORT IS INFUSING WITHOUT DIFFICULTY. DRESSING IS IN PLACE AND CDI. O2 VIA NC @ 2L. PT REPORTS PAIN 10/10 AND NAUSEATED. ZOFRAN RUNNING DRIP. PT STATES "JUST LEAVE ME ALONE" WHEN ASKED IF ANY OTHER NEEDS. GENNA ALARM IS ON AND WORKING. BED IS IN THE LOWEST POSITION. CALL LIGHT AND BEDSIDE TABLE ARE WITHIN REACH. SIDE RAILS X 2. PT DENIES FURTHER NEEDS. WILL CONT TO MONITOR.
--- NOTE | 2019-04-16 09:47 | NUR ---
REPORT CALLED TO GRICEL ALVAREZ IN ICU.
--- NOTE | 2019-04-16 09:55 | NUR ---
PT RECEIVED FROM FLOOR AT THIS TIME. VS STATED HR 97 NSR BP 128/67 RR 18 NONLABORED VIA 2L NC. DENIES NEEDS RESTING COMFORTBLY WILL CONTINUE TO MONITOR
[2019-04-16 11:12] LABS: BASOPHILS 0.7 % (0-2); EOSINOPHILS 6.3 % (0-7); HEMATOCRIT 40.1 % (42.0-54.0); IMMATURE GRANULOCYTES 2.1 % (0-5); LYMPHOCYTES 34.5 % (15-50); MCH 31.6 pg (26.0-34.0); MCHC 32.7 g/dL (31.0-37.0); MEAN PLATELET VOLUME 9.6 fL (7.4-10.4); MONOCYTES 27.5 % (2-11); NEUTROPHILS 28.9 % (40-80); PLATELET COUNT 126 10x3/uL (130-400); RDW 14.1 % (11.5-14.5)
[2019-04-16 11:21] LABS: HEMOGLOBIN 13.1 g/dL (13.5-17.5); MCV 96.6 fL (80.0-100.0); RBC 4.15 10x6/uL (4.20-6.10); WBC 1.4 10x3/uL (4.8-10.8)
[2019-04-16 11:34] LABS: BILIRUBIN - DIRECT 0.28 mg/dL (0.00-0.30)
--- NOTE | 2019-04-16 16:13 | NUR ---
PT RECEIVED FROM REGULAR ICU. VSS. WILL CONT POC.
--- NOTE | 2019-04-16 19:15 | NUR ---
Received patient layting in bed with eyes open, assessment completed per flowsheet. Patient Disoriented to time/place/situation, slight agitated and observed attempting to climb OOB. S1/S2 noted NSR on telemetry, rythmic and regular. Breathing is shallow on 2L via NC with O2 sat 94%, lung sounds clear bilateral upper with diminished mid and lower. Abdomen is round/soft with bowel sounds hypoactive x4, tender with slight nausea stated. Medina secured, concentrated yellow urine noted. All pulses palpable with cap refill < 3 sec, skin warm/dry. States abdominal pain 6/10 post PRN medication, repositioned with no stated relief. Patient moved to [facility] for closer observation, no further needs at this time and will continue to monitor.
--- NOTE | 2019-04-16 21:00 | NUR ---
Patient laying in bed with eyes open, c/o abdominal pain 12/17. Repositioned with no stated relief, will provide PRN medication when available. HS meds given, patient states slight nausea with no emesis at this time. All VSS and will continue to monitor.
--- NOTE | 2019-04-16 23:00 | NUR ---
Reassessment completed per flowsheet, no changes noted from previous assessment. S1/S2 noted Sinus Tach on telemetry, rythmic and regular. Breathing is shallow on room air with O2 sat 94%, lung sounds clear bilateral upper with diminished mid and lower. All pulses palpable with cap refill < 3 sec, skin warm/dry. C/O abdominal pain, repositioned with no stated relief and will provide PRN medication when available. See flowsheet for details, all VSS and will continue to monitor.
[2019-04-17] VITALS (34 sets, daily range): BP systolic 49–131; BP diastolic 28–79
--- NOTE | 2019-04-17 01:00 | NUR ---
Patient laying in bed restless yelling, attempted to calm and reposition with little success. Disoriented to time/place/situation with little success in reorientation after multiple attempts. Patient pulled off O2 sensor x3, observed trying to remove telemetry leads/IV lines. Lines secured and intact, will continue close monitoring.
--- NOTE | 2019-04-17 02:33 | NUR ---
Patient Port IV lines disconnected, port accessed x1 attempt with good return. Dressing secured, will continue close monitoring.
--- NOTE | 2019-04-17 03:00 | NUR ---
Reassessment completed per flowsheet, no changes noted from previous assessment. Patient disoriented to time/place/situation, no success with reorientation. S1/S2 noted Sinus Tach on telemetry, rythmic and regular. Breathing is shallow on room air with O2 sat 98%, lung sounds clear bilateral upper with diminished mid and lower. All pulses palpable with cap refill < 3 sec, skin warm/dry. Repositioned for comfort, no further needs at this time. See flowsheet for details, will continue close monitoring.
--- NOTE | 2019-04-17 03:20 | NUR ---
Patient observed attempting to climb OOB, stopped by RN and repositioned in bed. Patient disoriented to time/place/situation, attempted to reorient with no success. Will continue close monitoring.
[2019-04-17 05:49] LABS: BILIRUBIN - TOTAL 0.96 mg/dL (0.2-1.3); CALCIUM 8.2 mg/dL (8.5-10.1); CARBON DIOXIDE 30.7 mmol/L (21.0-32.0); PROTEIN - SERUM 5.8 g/dL (6.4-8.2)
[2019-04-17 05:52] LABS: ALBUMIN 2.9 g/dL (3.4-5.0); ANION GAP 13.2 mmol/L (8-16); CREATININE - SERUM 1.7 mg/dL (0.6-1.3); POTASSIUM - SERUM 3.9 mmol/L (3.5-5.1)
--- NOTE | 2019-04-17 07:00 | NUR ---
SHIFT REPORT RECEIVED. PT AWAKE AND CONFUSED. ATTEMPTING TO GET OUT OF BED. GENNA BED ALARM PLACED UNDER FITTED SHEET. PULLED UP AND REPOSITIONED FOR COMFORT. ON ROOM AIR. INFUSAPORT ON LEFT CHEST WITH PROCALAMIN AT 50ML/HR, NS AT 100ML/HR AND ZOFRAN AT 4.1ML/HR. PT PULLED ALL ARM BANDS OFF. REPLACED ARM BANDS AT THIS TIME. SAFETY MEASURES IN PLACE. WILL CONTINUE TO MONITOR.
[2019-04-17 07:13] LABS: BASOPHILS 0.1 % (0-2); EOSINOPHILS 0.4 % (0-7); HEMATOCRIT 41.1 % (42.0-54.0); HEMOGLOBIN 13.7 g/dL (13.5-17.5); LYMPHOCYTES 5.6 % (15-50); MCH 32.2 pg (26.0-34.0); MCHC 33.3 g/dL (31.0-37.0); MCV 96.7 fL (80.0-100.0); MEAN PLATELET VOLUME 10.4 fL (7.4-10.4); MONOCYTES 11.9 % (2-11); PLATELET COUNT 122 10x3/uL (130-400); RBC 4.25 10x6/uL (4.20-6.10); RDW 14.3 % (11.5-14.5)
[2019-04-17 07:50] LABS: WBC 6.8 10x3/uL (4.8-10.8)
--- NOTE | 2019-04-17 09:15 | NUR ---
JESU AT BEDSIDE. ASKED TO BE NOTIFIED WHEN DR. VYAS OR DR. BYNUM COMES TO SEE PT. PHONE NUMBER [phone].
--- NOTE | 2019-04-17 09:27 | NUR ---
PT AWAKE. REPORTING ABDOMINAL PAIN. PT CRYING DO TO PAIN. DILAUDID GIVEN AROUND 0812. DR. BYNUM NOTIFIED OF PATIENT BEING IN PAIN. ORDERED TO CONTIUE DILAUDID AT 1MG IV Q4HR. PT LAYING ON LEFT SIDE. WILL CONTINUE TO MONITOR AND TREAT.
--- NOTE | 2019-04-17 09:47 | NUR ---
JESU'S NUMBER GIVEN TO DR. BYNUM. MIGUEL [phone].
--- NOTE | 2019-04-17 10:16 | NUR ---
SPOKE WITH DR BYNUM, RECEIVED ORDER FOR GEODON 10MG IM Q6 PRN.
--- NOTE | 2019-04-17 10:20 | NUR ---
PT AGITATED. CLIMBED OUT OF BED. NURSING STAFF IN ROOM. ASSISTED TO BEDSIDE COMMODE. LARGE LIQUID BM NOTED AT THIS TIME. ASSISTED BACK TO BED. PULLED UP AND REPOSITIONED. PT CONTINUES TO REPORT PAIN. SAFETY ALARM ON. WILL CONTINUE TO MONITOR.
--- NOTE | 2019-04-17 11:05 | NUR ---
GRANIX NOT AVAILABLE IN UNIT. PHARMACY HAS BEEN NOTIFIED. WILL GIVE SOON AVAILABLE.
--- NOTE | 2019-04-17 12:38 | NUR ---
DR. BYNUM NOTIFIED OF BP 83/46. PT ASKING FOR PAIN MED. ORDERED 500CC BOLUS AND ALBUMIN. BOLUS AND ALBUMIN INFUSING AT THIS TIME. PT WAS YELLING FOR PAIN MEDICATION. DILAUDID 1MG IV GIVEN. WILL CONTINUE TO MONITOR.
--- NOTE | 2019-04-17 12:52 | NUR ---
PT ASLEEP AT THIS TIME. BP 82/57. WILL CONTINUE TO MONITOR.
--- NOTE | 2019-04-17 13:08 | NUR ---
Nutrition Follow-up: Per nurse, pt crying with abdominal pain this AM. Continues to receive Procalamine @ 50 mL/hr. Per MD, hydrating aggresively and awaiting GI recs. Diet: Clear Liquid Wt: 233# (down 3# from 04/09; will monitor) Last BM: 04/16 per chart Labs noted: Na 147, Glu 121, Ca 8.2, Alb 2.9, Lipase 4018, Amylase 360, elevated LFTs Meds noted: NS @ 100, NS 500 mL bolus, Albumin, Zofran -May consider increasing Procalamine rate or possible TPN; RD available to assist. -Will monitor wt trends. -RD following.
[2019-04-17 14:00] LABS: ANION GAP 11.7 mmol/L (8-16); CARBON DIOXIDE 30.1 mmol/L (21.0-32.0); CREATININE - SERUM 1.9 mg/dL (0.6-1.3); POTASSIUM - SERUM 3.8 mmol/L (3.5-5.1)
--- NOTE | 2019-04-17 14:10 | NUR ---
DR. BYNUM ORDERED 1MG IV DILAUDID TO BE GIVEN AT THIS TIME TO TREAT PAIN. ORDERED 1000ML BOLUS.
--- NOTE | 2019-04-17 14:11 | NUR ---
1MG DILAUDID IV GIVEN FOR PAIN PER DR. YBNUM'S ORDER. 1000ML BOLUS INFUSING AT THIS TIME PER ORDERS. WILL CONTINUE TO MONITOR.
--- NOTE | 2019-04-17 15:35 | NUR ---
INFUSAPORT INFILTRATED WHILE GIVING BOLUS. FLUIDS PLACED ON HOLD. ATTEMPTED PIV ON LEFT FOREARM SUCCESSFUL BUT DID NOT LAST VERY LONG. WAS ACCIDENTALY PULLED OUT. INFUSAPORT REACCESSED. BLOOD RETURN NOTED. BP 110/53. BOLUS PLACED ON HOLD PER DR. BYNUM. HE ORDERED ANOTHER 1MG IV DILAUDID IF NEEDED. PT SITTING UP AT 70 DEGREES. CALM AND COOPERATIVE. PT WAS GIVEN NORCO PO WHEN IV INFILTRATED. DR. BYNUM STATED TO GIVE NORCO 5MG PO Q4HR PRN.
--- NOTE | 2019-04-17 16:04 | NUR ---
DILAUDID GIVEN FOR PAIN PER ORDERS. CONTINUING FLUID BOLUS DUE TO BP 84/40 AT THIS TIME AFTER DILADID WAS GIVEN. SON AT BEDSIDE. WILL CONTINUE TO MONITOR.
--- NOTE | 2019-04-17 16:27 | NUR ---
PULLED UP IN BED AND REPOSITIONED. SON AT BEDSIDE. WILL CONTINUE TO MONITOR.
--- NOTE | 2019-04-17 16:49 | NUR ---
PT CONTINUES TO HAVE EPISODES OF AGITATION. ASKING TO RAISE HEAD OF BED BUT HOB IS HIGH IT GOES. ASKED IF HE NEEDED TO GET UP TO USE BEDSIDE COMMODE PT DID NOT RESPOND. SON AT BEDSIDE. WILL CONTINUE TO MONITOR.
--- NOTE | 2019-04-17 18:16 | NUR ---
NORCO 5MG TAB GIVEN AT THIS TIME FOR PAIN 10/10 ON BACK. PT SITTING ON SIDE OF BED. NAUSEA NOTED AT THIS TIME. SON AT BEDSIDE. WILL CONTINUE TO MONITOR.
--- NOTE | 2019-04-17 18:17 | NUR ---
OT NOTE: PT C/O PAIN. PT COMPLETED BED MOB TASKS WITH MIN A. PT COMPLETED EOB SITTING WITH MIN A. PT COMPLETED SIMPLE FACE AND HAND WASH WITH MIN A. NURSING AWARE OF PAIN. THANK YOU,LOEGARIO POWELL
--- NOTE | 2019-04-17 18:49 | NUR ---
DR. VYAS IN UNIT. NOTIFED THAT SON AND GRANDSON WANTED TO SPEAK WITH HIM. BOTH PHONE NUMBERS GIVEN. MADE HIM AWARE THAT PT IS STILL IN ALOT OF BACK AND ABDOMINAL PAIN.
--- NOTE | 2019-04-17 23:21 | NUR ---
CALLED FOR A SUICIDE ASSESSMENT ON THIS PATIENT. PATIENT IS NOT ANSWERING ANY OF THE ASSESSMENT QUESTIONS. THIS NURSE WENT FROM EAR TO EAR TO ASSESS PATIENT FOR SUICIDIAL IDEATIONS. THIS NURSE CALLED PATIENT'S PRIMARY NURSE IN TO ASK IF PATIENT WANTED TO HARM HIMSELF AND HE FORCEFULLY SAID "NO". MANAGER SUPPLIER CALLED TO INFORM OF PATIENT'S STATUS.
[2019-04-18] VITALS (28 sets, daily range): BP systolic 94–154; BP diastolic 42–103
[2019-04-18 05:05] LABS: ANION GAP 11.2 mmol/L (8-16); BILIRUBIN - TOTAL 1.35 mg/dL (0.2-1.3); CALCIUM 8.1 mg/dL (8.5-10.1); CARBON DIOXIDE 29.5 mmol/L (21.0-32.0); CREATININE - SERUM 1.7 mg/dL (0.6-1.3); POTASSIUM - SERUM 3.7 mmol/L (3.5-5.1); PROTEIN - SERUM 5.3 g/dL (6.4-8.2)
[2019-04-18 05:21] LABS: BASOPHILS 0.2 % (0-2); EOSINOPHILS 0.4 % (0-7); HEMATOCRIT 37.6 % (42.0-54.0); HEMOGLOBIN 12.4 g/dL (13.5-17.5); IMMATURE GRANULOCYTES 2.1 % (0-5); LYMPHOCYTES 2.4 % (15-50); MCH 31.7 pg (26.0-34.0); MCV 96.2 fL (80.0-100.0); MEAN PLATELET VOLUME 10.8 fL (7.4-10.4); MONOCYTES 5.5 % (2-11); NEUTROPHILS 89.4 % (40-80); RBC 3.91 10x6/uL (4.20-6.10); RDW 14.7 % (11.5-14.5)
[2019-04-18 05:22] LABS: PLATELET COUNT 83 10x3/uL (130-400); PLATELET ESTIMATE DECREASED
[2019-04-18 06:08] LABS: IGG SUBCLASS 1 227 mg/dL (248-810); IGG SUBCLASS 2 148 mg/dL (130-555); IGG SUBCLASS 3 42 mg/dL (15-102); IGG SUBCLASS 4 5 mg/dL (2-96); IGGS - IGG SERUM 466 mg/dL (700-1600)
--- NOTE | 2019-04-18 08:03 | NUR ---
LYING IN BED RESTING AT THIS TIME WITH EYES CLOSED. NO ACUTE DISTRESS NOTED. VSS. PT AWAKENS WHEN SPOKEN TO. ANSWERS QUESTIONS APPROPIATELY. WILL CONTINUE PLAN OF CARE.
--- NOTE | 2019-04-18 08:37 | NUR ---
DR VYAS PAGED REGARDING AM LABS: ELEVATED AMYLASE, LIPASE, AND WBC. WAITING FOR CALLBACK.
--- NOTE | 2019-04-18 08:42 | NUR ---
PER DR VYAS, OBTAIN ABDOMINAL CT WITH CONTRAST IF OKAY WITH PRIMARY. DR DAVID XAVIER IN UNIT AT THIS TIME, AGREED WITH DR VYAS'S STATEMENT. CALLED DR BYNUM, STATED TO ADMIN 500ML NS BOLUS NOW AND THEN OKAY TO GO FOR CT ABDOMEN WITH CONTRAST: IV CONTRAST ONLY. ORDERS PLACED.
--- NOTE | 2019-04-18 09:50 | NUR ---
ALL PO MEDS HELD AT THIS TIME. PT NOT ALERT ENOUGH TO TAKE IN PO MEDS.
--- NOTE | 2019-04-18 10:02 | NUR ---
LEFT WITH CT AT THIS TIME VIA BED ACCOMPANIED BY RADOILOGY STAFF. NO ACUTE DISTRESS NOTED. FAMILY AT BEDSIDE.
--- NOTE | 2019-04-18 10:20 | NUR ---
RETURNED FROM CT AT THIS TIME VIA BED ACCOMPANIED BY RADIOLOGY STAFF. VSS. PT COMPLAINT OF INTENSE AMOUNT OF PAIN TO ABDOMEN. PT TEARFUL AND YELLING "HELP" PT RECENTLY RECIEVED ALEXY LARKIN. WILL NOTIFY PHYSICIAN FOR FURTHER ORDERS.
--- NOTE | 2019-04-18 12:30 | NUR ---
1200: PT NOTED PULLED OUT ALL LINES INCLUDING INFUSAPORT ACCESS NEEDLE (INTACT), AND ALL MONITORING EQUIPMENT. PT CONFUSED, UNABLE TO REORIENTATE. DR BYNUM CALLED AND NOTIFIED. DR BYNUM ON UNIT AND SPOKE WITH PT, STATED TO ADMIN GEODON AND PLACE RESTRAINTS FOR SAFETY FROM PULLING AT LINES AND TUBES. PLACED PER PHYSICIAN ORDERS FOR PT SAFETY. REORIENTATION ATTEMPTED TO BE PROVIDED AND WAS UNSUCCESSFUL. VSS. WILL CONTINUE PLAN OF CARE.
--- NOTE | 2019-04-18 13:20 | NUR ---
INFUSAPORT REACCESSED AT THIS TIME, BLOOD RETURN NOTED, FLUSHES WELL. IS 19G AND 1 IN. WILL CONTINUE PLAN OF CARE.
--- NOTE | 2019-04-18 13:30 | ST ---
PATIENT:JOSUÉ RAMON MEDICAL RECORD: [id number] SEX: M LOCATION:[place] [id number] ORDER #: ADMISSION DATE: 04/09/19 AGE OF PATIENT: 84 REFERRING PHYSICIAN: INTERPRETING PHYSICIAN: DANUTA HERNANDEZ MD DATE OF SERVICE: 04/09/2019 Nuclear stress test. INDICATION: Chest pain, coronary artery disease. TECHNIQUE: He was exercised on standard Lexiscan protocol with 33 mCi of sestamibi injected at peak stress, 11 mCi used previously for rest images. FINDINGS: Gated SPECT reveals mild LV dilatation, decreased thickening and brightening throughout the inferior segments. Ejection fraction decreased at 38%. SPECT imaging; Cardiolite was used as myocardial perfusion agent. There is a fixed perfusion defect inferiorly compatible with previous inferior myocardial infarction. No evidence of reversible ischemia. This defect in fact improves with stress, when compared to 2017 study it is very little change. OVERALL IMPRESSION: Stable nuclear stress test, fixed perfusion defect inferiorly compatible with previous inferior myocardial infarction, no ongoing ischemia, ejection fraction decreased at 38%. TRANSINT:[id number] Voice Confirmation ID: [id number] DOCUMENT ID: [id number] DANUTA HERNANDEZ MD at 1330 CC: [id number] DICTATION DATE: 04/10/19 1502 CARD MAKER: 04/11/19 0709 ADM IN [place] [id number] [place] [address]
--- NOTE | 2019-04-18 13:31 | NUR ---
SPOKE WITH DR ALCAZAR. SAYS PT NEEDS TO HAVE URETERAL STENT REPLACED. PT HAS BEEN NPO ALL DAY. PLANS TO TAKE HIM TO [facility] TODAY TO REPLACE STENT.
--- NOTE | 2019-04-18 13:36 | NUR ---
SPOKE WITH SON AT BEDSIDE ABOUT DR ALCAZAR PLAN TO REPLACE STENT.
--- NOTE | 2019-04-18 13:54 | NUR ---
GRANDSON AT NURSE STATION. VERY UPSET AT PROGRESSION OF PT CARE. CONCERNED PT SHOULD HAVE BEEN TRANSFERED TO [place]. DR BYNUM NOTIFIED THAT SON AND GRANDSON AT BEDSIDE. 1405 DR BYNUM AT BEDSIDE DISCUSSING PT WITH SON AND GRANDSON. 1414 DR BYNUM LEAVES ROOM, FAMILY ASKED IF HAVE ANY OTHER QUESTIONS. DENY ANY ADDITIONAL. SAYS HAPPY WITH NURSING CARE, JUST UPSET HAVE NOT HAD OPPORTUNITY TO DISCUSS IN DETAIL WITH A PHYSICIAN. GLAD A PLAN IS IN PLACE AND FEEL HAVE A BETTER UNDERSTANDING OF WHAT IS HAPPENING.
--- NOTE | 2019-04-18 14:50 | NUR ---
LEFT AT THIS TIME TO OR ACCOMPANIED BY OR NURSING STAFF AND ANESTHESIOLOGY. CONSENTS HAVE BEEN SIGNED BY PTS SON. ALL QUESTIONS AND CONCERNS ADRESSED BY PHYSICIANS. FAMILY DENIES ANY QUESTIONS OR CONCERNS. VSS.
--- NOTE | 2019-04-18 16:27 | NUR ---
DR VYAS HAS SPOKEN WITH PT AND PTS SON. UPDATES PROVIDED. FAMILY STATE CONCERN REGARDING PAIN CONTROL. PHYSICIAN STATES HE WILL CONSULT WITH PRIMARY AND PLACE ORDERS REGARDING MED CHANGE FOR PAIN CONTROL.
--- NOTE | 2019-04-18 18:12 | NUR ---
LYING IN BED RESTING AT THIS TIME. PT STILL HAS EPISODES OF YELLING OUT AND THEN GOES BACK TO SLEEP. VSS. PT STILL ATTEMPTING TO PULL AT LINES AND TUBES. WILL CONTINUE TO CLOSELY OBSERVE.
--- NOTE | 2019-04-18 19:00 | NUR ---
REPORT RECEIVED, CARE ASSUMED. PT IS LAYING IN BED WITH BILATERAL WRIST RESTRAINTS ON. PT IS ATTEMPTING TO PULL AT LINES AND TUBES STILL. NO NEEDS NOTED AT THIS TIME. INITIAL ASSESSMENT COMPLETED, SEE FLOWSHEET FOR DETAILS. WILL CONTINUE TO MONITOR CLOSELY.
--- NOTE | 2019-04-18 21:00 | NUR ---
PT IS LAYING IN BED WITH BILATERAL WRIST RESTRAINTS ON. PT OCCASSIONALLY YELLING OUT, BUT IS MOSTLY QUIET WITH EYES CLOSED. NO NEEDS IDENTIFIED AT THIS TIME. NO SIGNS OF ACUTE DISTRESS. WILL CONTINUE TO MONITOR.
--- NOTE | 2019-04-18 23:00 | NUR ---
REASSESSMENT COMPLETED, SEE FLOWSHEET FOR DETAILS. PT IS LAYING IN BED WITH EYES CLOSED QUIETLY. NO NEEDS IDENTIFIED. NO SIGNS OF ACUTE DISTRESS. WILL CONTINUE TO MONITOR CLOSELY.
[2019-04-19] VITALS (26 sets, daily range): BP systolic 83–119; BP diastolic 40–72
--- NOTE | 2019-04-19 01:00 | NUR ---
HEARD PT MAKE A GROANING NOISE AND WALKED INTO PT ROOM IN TIME TO WATCH HIM PULL HIS THAYER OUT, BULB INTACT. CONSTANT STREAM OF BLOOD IS FLOWING FROM HIS PENIS. PT WAS ALSO INCONTINENT OF A MEDIUM SIZED BM. FULL CHG BATH GIVEN AND LINEN CHANGE COMPLETED. PT IS NOT SHOWING ANY FURTHER SIGNS OF PAIN. PT WAS COOPERATIVE WITH BATH AND TURNING.
--- NOTE | 2019-04-19 03:00 | NUR ---
REASSESSMENT COMPLETED, SEE FLOWSHEET FOR DETAILS. PT IS LAYING IN BED AT THIS TIME. NO SIGNS OF ACUTE DISTRESS. WILL CONTINUE TO MONITOR.
--- NOTE | 2019-04-19 05:00 | NUR ---
PT IS LAYING IN BED WITH EYES CLOSED AT THIS TIME NO SIGNS OF ACUTE DISTRESS. WILL CONTINUE TO MONITOR.
[2019-04-19 06:47] LABS: LIPASE 9663 U/L (73-393)
[2019-04-19 06:48] LABS: AMYLASE - SERUM 687 U/L (25-115)
[2019-04-19 07:46] LABS: ANION GAP 16.9 mmol/L (8-16); CARBON DIOXIDE 24.9 mmol/L (21.0-32.0); CREATININE - SERUM 1.6 mg/dL (0.6-1.3); POTASSIUM - SERUM 3.8 mmol/L (3.5-5.1)
--- NOTE | 2019-04-19 07:46 | NUR ---
PT RESTING QUIETLY. US TECH IN ROOM PERFORMING US KIDNEYS. CALLED DR ALCAZAR'S CELL. NO ANSWER. ANSWERING SERVICE CALLED AND HAD DR ALCAZAR PAGED. WILL REPORT TO DR ALCAZAR THAT PT PULLED THAYER OUT LAST PM AROUND 1 AM.
[2019-04-19 07:49] LABS: HEMATOCRIT 35.5 % (42.0-54.0); HEMOGLOBIN 11.7 g/dL (13.5-17.5); MCH 31.8 pg (26.0-34.0); MCV 96.5 fL (80.0-100.0); MEAN PLATELET VOLUME 10.7 fL (7.4-10.4); RBC 3.68 10x6/uL (4.20-6.10); RDW 14.9 % (11.5-14.5); WBC 18.8 10x3/uL (4.8-10.8)
[2019-04-19 07:51] LABS: PLATELET COUNT 65 10x3/uL (130-400)
--- NOTE | 2019-04-19 08:02 | NUR ---
DR ALCAZAR CALLED BACK. I REPORTED THAT PT PULLED THAYER OUT AND REPORTED LARGE BLOOD CLOTS COMMING OUT. DR ALCAZAR STATES TO NOT REPLACE THAYER CATH. WILL MONITOR UOP.
[2019-04-19 08:11] LABS: LYMPHOCYTES 2 % (15-50); NEUTROPHILS 88 % (40-80); PLATELET ESTIMATE DECREASED
--- NOTE | 2019-04-19 10:15 | NUR ---
PTS GRANDSON HERE. DR BYNUM SPOKE TO HIM AT BS. PT INC OF URINE WITH BLOOD CLOTS. LINENS CHANGED AND HCG BATH GIVEN.
--- NOTE | 2019-04-19 11:49 | NUR ---
PT TO [facility] FOR [facility].
--- NOTE | 2019-04-19 11:56 | NUR ---
Nutrition Follow-up: Procalamine @ 50 mL/hr. Noted plan for CXR and CTA today. Nurse reports possible need for ST eval. Diet: Clear Liquid Wt: 240# (232# on 04/18) Last BM: 04/19 Labs noted: Amylast 687, Lipase 9663, Na 152 Meds noted: NS 0.45% @ 75, Albumin, Reglan -May consider increasing rate of Procalamine or possible TPN; RD available to assist. -Will monitor weight trends and skin integrity. -RD following.
--- NOTE | 2019-04-19 12:03 | NUR ---
OT NOTE: PT VERY LETHARGIC; CONT WITH RESTRAINTS DUE TO PULLING OUT CATH. MAX ASSIST FOR BED MOB; UNABLE TO FOLLOW COMMANDS. WILL DC PT FROM OT SERVICES AT THIS TIME; WILL RE ASSESS WHEN MEDICALLY IMPROVED. KARAN SALAZAR, OTR/L
--- NOTE | 2019-04-19 12:19 | OP ---
PATIENT NAME: JOSUÉ RAMON MEDICAL RECORD: [id number] :34 LOCATION:[place] [facility] ADMISSION DATE:04/09/19 SURGEON: YVETTE ALCAZAR MD DATE OF OPERATION: 04/18/2019 SURGEON: Yvette Alcazar MD ANESTHESIA: TIVA by Layne Rodriguez CRNA. 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 PROCEDURES: Cystoscopy and right ureteral stent exchange with a 6-Chadian x 26 cm ureteral stent without a string. FINDINGS: No bladder tumors, tall bladder neck. On retrograde pyelogram, there is medial deviation of the right ureter distally, with severe ureteral luminal stenosis. Proximal to this is hydroureteronephrosis. SPECIMENS: Old right ureteral stent. ESTIMATED BLOOD LOSS: None. CLINICAL HISTORY: This is an 84-year-old patient, whom I have seen in the past. He has right ureteral obstruction due to retroperitoneal lymphadenopathy from follicular lymphoma. He has finished his course of chemotherapy. He developed pneumonia as well as acute pancreatitis and he is in the ICU for this. CT scan of the abdomen and pelvis was performed recently and it showed signs of acute pancreatitis as well as severe right hydroureteronephrosis even though he has a stent in place. The stent was placed in November 2018. It seems to be obstructed or nonfunctioning and therefore, I will bring him now to the OR to exchange it for a new one. He was given Ancef on-call to the OR. DESCRIPTION OF PROCEDURE: The patient was given IV sedation. He was then placed in the lithotomy position and prepped and draped. A 21-Chadian cystoscope with 30-degree lens was used for visualization. The old ureteral stent was seen. It is a metal stent. The grasping forceps were placed on the stent and the stent was entirely removed. We then introduced an open-ended 5-Chadian ureteral catheter into the right ureteral lumen and injected diluted contrast for retrograde pyelogram. Findings as outlined above. Through the lumen of the ureteral catheter, we inserted a Sensor wire up into the renal pelvis. The ureteral catheter was then removed and over the wire, we inserted the 6-Chadian x 26 cm ureteral stent. Once the stent was in correct position, the distal end was pushed into the bladder using a pusher. The wire was then removed entirely. The string on the distal end of the stent has been removed. The bladder was then emptied through the scope sheath. I replaced a 16-Chadian Medina catheter to bag drainage. I will obtain an ultrasound of the kidneys tomorrow. If the hydronephrosis is not improving, then he may need a nephrostomy. TRANSINT:[id number] Voice Confirmation ID: [id number] DOCUMENT ID: [id number] OPERATIVE REPORT [id number] JOSUÉ RAMON, YVETTE Alamo MD at 1219 CC: [id number] DICTATION DATE: 04/18/19 1539 RESTAURANT AREA DIRECTOR: 04/18/19 2331 ADM IN [facility] [address] [place] [address]
--- NOTE | 2019-04-19 19:00 | NUR ---
SHIFT ASSESSMENT COMPLETE. PT IS A&O X2, CONFUSED TO TIME AND SITUATION. REORIENTED. PERRLA, 3 MM, BRISK REACTION TO LIGHT. STRONG HAND YARDER BOSS AND FOOT PUMPS, LEFT IS SLIGHTLY WEAKER. RR SHALLOW, 2L VIA NC ON, EXP WHEEZES HEARD BILAT THROUGHOUT UPPER AND MIDDLE LOBES, DIMINISHED AT THE BASES. S1S2 AUDIBLE, HR 120 BPM, SINUS TACH SHOWING ON THE MONITOR. LT CHEST INFUSA PORT NOTED, DRESSING CDI, INFUSIN/2 NS @ 75 ML/HR, ZOFRAN GTT @ 1 MG/HR (4.7 ML/HR), AND PROCAL @ 50 ML/HR. ABD FIRM AND TENDER TO TOUCH, BS HYPOACTIVE X4. BLOODY URINE NOTED ON PAD, MD AWARE. PARTIAL LINEN CHANGE PROVIDED. SCDS ON AND FUNCTIONING, SKIN WNL. RADIAL AND PEDAL PULSES PALP. L&R WRIST RESTRAINTS ON, SKIN WNL. CALL LIGHT IN REACH, BED IN LOWEST POSITION, PT IS IN SIGHT OF NURSE'S STATION. WILL CONT CLOSE MONITORING.
--- NOTE | 2019-04-19 19:30 | NUR ---
L&R WRIST RESTRAINTS REMOVED. SEE RESTRAINT FLOWSHEET.
--- NOTE | 2019-04-19 21:00 | NUR ---
CHG BATH, YIFAN CARE, AND COMPLETE LINEN CHANGE PROVIDED. PT TOLERATED WELL. FSBS 106, NO INSULIN ADMIN PER SLIDING SCALE. REPOSITIONED FOR COMFORT. CALL LIGHT IN REACH, BED IN LOWEST POSITION. WILL CONT WITH POC.
--- NOTE | 2019-04-19 23:00 | NUR ---
REASSESSMENT COMPLETE. NO CHANGES IN PT CONDITION. REORIENT WHEN NEEDED AND EDUCATION PROVIDED REGARDING HIS PAIN LEVEL AND MANEGMENT. REPOSITIONED FOR COMFORT. VSS. WILL CONT CLOSE MONITORING FROM NURSE'S STATION. CALL LIGHT IN REACH, BED IN LOWEST POSITION, BED ALARM ON.
[2019-04-20] VITALS (28 sets, daily range): BP systolic 91–125; BP diastolic 46–67
--- NOTE | 2019-04-20 00:32 | NUR ---
PT STATES THAT HE IS HAVING 6/10 BACK PAIN. PRN DILAUDID ADMIN VIA IVP. REPOSITIONED FOR COMFORT. CALL LIGHT IN REACH, NO FURTHER NEEDS AT THIS TIME.
--- NOTE | 2019-04-20 00:35 | NUR ---
CHANGED PROCAL IV TUBING.
--- NOTE | 2019-04-20 01:00 | NUR ---
PT RESTING PEACEFULLY WITH NO SIGNS OF ACUTE DISTRESS NOTED. VSS. REPOSITIONED FOR COMFORT. WILL CONT WITH POC.
--- NOTE | 2019-04-20 03:00 | NUR ---
REASSESSMENT COMPLETE. NO CHANGES IN PT CONDITION. REORIENTED TO TIME AND SITUATION. SEE FLOWSHEET FOR FURTHER DETAILS. VSS. REPOSITIONED FOR COMFORT. PT DENIES ANY PAIN. WILL CONT WITH POC.
--- NOTE | 2019-04-20 04:00 | NUR ---
PT PULLED OUT IV LINES THAT ARE INFUSING THROUGH HIS PORT, HUANG NEEDLE TIP INTACT. REACCESSED PORT VIA BLOOD DONOR RECRUITER SUPERVISOR X1 ATTEMPT, PT TOLERATED WELL. REORIENTED AND EDUCATED THE RISK ASSOCIATED WITH PULLING AT TUBES/LINES. WILL CONT CLOSE MONITORING IN CVICU.
--- NOTE | 2019-04-20 05:00 | NUR ---
PT STATES THAT HE IS HAVING 10/10 BACK PAIN. BP ELEVATED, ADMIN PRN DILAUDID. REPOSITIONED FOR COMFORT. TRIED DRAWING AM LABS, PORT WOULD DRAW BACK SOME BLOOD BUT NOT ENOUGH TO OBTAIN AM LABS. WILL CALL LAB TO COME DRAW. NO FURTHER NEEDS AT THIS TIME. VSS. WILL CONT WITH POC.
[2019-04-20 06:25] LABS: ANION GAP 10.8 mmol/L (8-16); CALCIUM 8.1 mg/dL (8.5-10.1); CARBON DIOXIDE 25.2 mmol/L (21.0-32.0); CREATININE - SERUM 1.8 mg/dL (0.6-1.3)
[2019-04-20 06:27] LABS: BASOPHILS 0.3 % (0-2); EOSINOPHILS 0.6 % (0-7); HEMATOCRIT 34.4 % (42.0-54.0); HEMOGLOBIN 11.2 g/dL (13.5-17.5); IMMATURE GRANULOCYTES 2.7 % (0-5); LYMPHOCYTES 4.7 % (15-50); MCH 31.5 pg (26.0-34.0); MCHC 32.6 g/dL (31.0-37.0); MCV 96.6 fL (80.0-100.0); MEAN PLATELET VOLUME 12.6 fL (7.4-10.4); MONOCYTES 7.1 % (2-11); NEUTROPHILS 84.6 % (40-80); PLATELET COUNT 58 10x3/uL (130-400); RBC 3.56 10x6/uL (4.20-6.10); RDW 14.9 % (11.5-14.5)
[2019-04-20 06:28] LABS: WBC 9.7 10x3/uL (4.8-10.8)
--- NOTE | 2019-04-20 07:00 | NUR ---
PARTIAL LINEN CHANGE PROVIDED WITH AM NURSE. BEDSIDE SHIFT REPORT GIVEN. NO FURTHER QUESTIONS.
--- NOTE | 2019-04-20 08:19 | NUR ---
PT CONFUSED AND PULLING AT IV LINES AND MONITORING EQUIPMENT. UNABLE TO REDIRECT. RESTRAINTS ON. CRACKLES AUSCULTATED. STARTED ON I.S. PT PULLS 500 WITH GOOD EFFORT.
--- NOTE | 2019-04-20 10:25 | NUR ---
PT SAT PT UP ON SIDE OF BED. PT C/O LOW MID BACK PAIN. PT STOOD UP AT BS W/ PT X APPROX 1 MIN. ASSISTED BACK TO BED. FAMILY AT BS. PT TAKING A FEW SIPS OF WATER. UNABLE TO GIVE ALL PO MEDS DUE TO PT'S LACK OF ABILITY TO TOLERATE.
--- NOTE | 2019-04-20 13:41 | NUR ---
DR BYNUM SPOKE TO PT AND 3 FAMILY MEMBERS AT ON ROUNDS.
--- NOTE | 2019-04-20 15:39 | NUR ---
PT ASKING TO VOID. ASST WITH URINAL. PT VOIDS 350CC PAR[place] URINE. ASSTED WITH I.S. PT PULLS 700 WITH FAIR EFFORT.
--- NOTE | 2019-04-20 16:09 | NUR ---
REPOSITIONED AND TURNED. FAMILY AT BS. SPOKE TO HOUSE SUPPERVISOR RE: SPECALITY MATTRESS ORDER.
--- NOTE | 2019-04-20 19:00 | NUR ---
SHIFT ASSESSMENT COMPLETE. PT IS A&O X3, CONFUSED TO SITUATION, REORIENTED. PERRLA, 3 MM, BRISK REACTION TO LIGHT. STRONG AND EQUAL HAND BOAT OPERATOR AND FOOT PUMPS. RR 28-30, SHALLOW BREATHS. EXP WHEEZES AND CRACKLES HEARD BILAT THROUGHOUT ALL LOBES, YAUNKER SUCTIONED GREEN/YELLOW SPUTUM. S1S2 AUDIBLE, HR 122 SINUS TACH SHOWING ON MONITOR. LT CHEST INFUSA PORT INFUSIN/2 NS @ 75 ML/HR, ZOFRAN GTT 1 MG/HR (4.7 ML/HR), AND PROCAL @ 50 ML/HR, DRESSING CDI. ABD FIRM AND TENDER TO TOUCH, HYPOACTIVE BS X4. COMPLETE LINEN CHANGE PROVIDED, LARGE AMOUNT OF CONCENTRATED URINE FOUND ON PAD. PT TOLERATED MOVEMENT WELL. B/L ARMS HAVE BRUISING ON THEM. SCDS ON AND FUNCTIONING. RADIAL AND PEDAL PULSES PALP. L&R WRIST RESTRAINTS REMOVED AND SKIN ASSESSED, WNL. EXPLAINED WHY HE HAS THE RESTRAINTS ON, WILL CONT TO REORIENT WHEN NEEDED. VSS. CALL LIGHT IN REACH, BED IN LOWEST POSITION. WILL CONT WITH POC.
--- NOTE | 2019-04-20 19:30 | NUR ---
IS USE X5, WEAK EFFORT. EXPLAINED THE IMPORTANCE OF THE EXERCISE. 500 ML INSPIRED. WILL CONT TO ENCOURAGE IS USE.
--- NOTE | 2019-04-20 20:22 | NUR ---
KRAIG BYNUM D/T INCREASED RR AND WHEEZING.
--- NOTE | 2019-04-20 20:27 | NUR ---
GOVIND SCHWARTZ APN, ANSWERED PAGE. NEW ORDERS RECIEVED.
--- NOTE | 2019-04-20 20:45 | NUR ---
INCREASED O2 TO 4L/MIN. O2 SAT NOW 98%. WILL CONT CLOSE MONITORING.
--- NOTE | 2019-04-20 21:00 | NUR ---
FSBS 85, NO INSULIN GIVEN PER SLIDING SCALE. PO MEDS TAKEN WITHOUT DIFFICULTY. REPOSITIONED FOR COMFORT. VSS. REFRESHEMENTS PROVIDED. NO FURTHER NEEDS. CALL LIGHT IN REACH. WILL CONT WITH POC.
--- NOTE | 2019-04-20 23:00 | NUR ---
REASSESSMENT COMPLETE. NO CHANGES FROM PREVIOUS ASSESSMENT, SEE FLOWSHEET FOR FURTHER DETAILS. REPOSITIONED FOR COMFORT. PT REMAINS CONFUSED TO SITUATION. REORITED. CALL LIGHT IN REACH, BED IN LOWEST POSITION. PT IS IN VIEW OF NURSE'S STATION. WILL CONT WITH POC.
--- NOTE | 2019-04-20 23:05 | NUR ---
PT'S TEMP 100.8, FAN PLACED IN ROOM. WILL CONT TO REASSES TEMP. TYLENOL ON HOLD PER DR. VYAS.
[2019-04-21] VITALS (28 sets, daily range): BP systolic 82–153; BP diastolic 35–74
--- NOTE | 2019-04-21 | NUR ---
PT'S TEMP IS NOW 98.0, AXILLARY.
--- NOTE | 2019-04-21 01:00 | NUR ---
PARTIAL LINEN CHANGE PROVIDED. CONCENTRATED URINE SEEN ON PAD. PT TOLERATED MOVEMENT WELL. CALL LIGHT IN REACH, BED IN LOWEST POSITION. WILL CONT WITH POC.
--- NOTE | 2019-04-21 03:00 | NUR ---
REASSESSMENT COMPLETE, SEE FLOWSHEET FOR FURTHER DETAILS. PARTIAL LINEN CHANGE PROVIDED. REPOSITIONED FOR COMFORT. WILL CONT IWTH POC.
--- NOTE | 2019-04-21 04:00 | NUR ---
RT AT BEDSIDE. PT IS WHEEZING, CRACKLES HEARD BILAT THROUGHOUT ALL LOBES. SWITCHED TO HIGH FLOW NC, TITRATED TO 13L VIA HIGH FLOW NC. O2 SAT 93-94%. WILL CONT CLOSE MONITORING.
--- NOTE | 2019-04-21 04:42 | NUR ---
TITRATED O2 DOWN TO 9L/MIN. O2 SAT 94%.
--- NOTE | 2019-04-21 05:30 | NUR ---
PAGED DR. TELLEZ[facility]. GOVIND SCHWARTZ APN ANSWERED PAGE. NEW ORDERS RECIEVED.
--- NOTE | 2019-04-21 05:35 | NUR ---
DR. RIBEIRO CONSULTED, NEW ORDERS RECIEVED.
--- NOTE | 2019-04-21 05:45 | NUR ---
RT AT BEDSIDE. VAPOTHERM: 40 L/MIN, FIO2 100%. PT TOLERATING WELL.
[2019-04-21 06:45] LABS: ANION GAP 11.9 mmol/L (8-16); CALCIUM 8.1 mg/dL (8.5-10.1); CARBON DIOXIDE 27.5 mmol/L (21.0-32.0); CREATININE - SERUM 1.6 mg/dL (0.6-1.3); POTASSIUM - SERUM 4.4 mmol/L (3.5-5.1)
[2019-04-21 06:48] LABS: HEMATOCRIT 34.6 % (42.0-54.0); HEMOGLOBIN 11.2 g/dL (13.5-17.5); MCH 31.3 pg (26.0-34.0); MCHC 32.4 g/dL (31.0-37.0); MCV 96.6 fL (80.0-100.0); MEAN PLATELET VOLUME 11.8 fL (7.4-10.4); PLATELET COUNT 50 10x3/uL (130-400); RBC 3.58 10x6/uL (4.20-6.10)
[2019-04-21 06:52] LABS: PRO BNP 465 pg/mL (0-450)
[2019-04-21 06:56] LABS: AMYLASE - SERUM 545 U/L (25-115); LIPASE 5521 U/L (73-393)
--- NOTE | 2019-04-21 07:22 | NUR ---
CALLED PTS SON AND REPORTED WORSENING OF RESP STATUS. SPO2 100% ON 40LPM 100% VAPOTHERM. RESP RATE 28 TO 32BPM. SPUTUM PRODUCTION THICK YELLOW. TEMP 100.0 AX.
[2019-04-21 08:00] LABS: LYMPHOCYTES 5 % (15-50); MONOCYTES 4 % (2-11); NEUTROPHILS 89 % (40-80); PLATELET ESTIMATE DECREASED; TOXIC GRANULATION 3+; VACUOLES 1+
--- NOTE | 2019-04-21 08:54 | NUR ---
PT RESTRAINED AND PULLED VAPOTHERM OFF. REAPPLIED. ABGS REDRAWN.
--- NOTE | 2019-04-21 09:05 | NUR ---
DR QUINTIN HILLMAN. WILL REPORT RESULTS OF ABG'S. PT GS AT . UPDATE GIVEN AND DISCUSSED CODE STATUS. GS AWAITING ON DISCUSSION WITH HIS FATHER THAT IS IN ROUTE.
--- NOTE | 2019-04-21 10:06 | NUR ---
REPORTED ABG'S TO DR RIBEIRO. REC'D ABX ORDERS. DISCUSSED CODE STATUS AND INTUBATION WITH 3 FAMILY MEMBERS. ALL STATE WISHES IS TO REMAIN FULL CODE.
--- NOTE | 2019-04-21 12:45 | NUR ---
DR RIBEIRO AND DR BYNUM AND HEMATOLOGY PHYSICIAN AND MORENITA MARTEL SPOKE TO 3 FAMILY MEMBERS AT BS TODAY. PT PLACED OF BIPAP. SETTINGS PER RT. TOLERATING POORLY. TOOK MASK OFF AND PLACED BACK ON VAPOTHERM SEVERAL TIMES. PT AGREES TO WEAR. MOUTH CARE AND READJUSTED MASK AND ALLOWED TO SIP WATER WHILE OFF BIPAP. REAPPLIED MASK.
--- NOTE | 2019-04-21 13:48 | NUR ---
PT REFUSING TO WEAR MASK. PLACED VAPOTHERM ON AND ASSISTED WITH MOUTH CARE AND A SIP OF WATER. REPLACED MASK. PT AGREABLE TO WEAR BIPAP AT PRESENT.
--- NOTE | 2019-04-21 16:39 | NUR ---
PT RESTLESS AND BEGINS TO PANIC WITH BIPAP MASK ON. GEODON GIVEN IM RT THIGH. FAMILY AT BS, VSS.
--- NOTE | 2019-04-21 19:00 | NUR ---
PT ASSESSMENT COMPLETED AT THIS TIME, NO CHANGES FROM NURSE REPORT, VSS, WILL CONT. TO MONITOR FOR CHANGES
--- NOTE | 2019-04-21 20:30 | NUR ---
PT VERY RESTLESS AND AGITATED TRYING TO PULL AT IV AND BIPAP, PT'S FAMILY AT BEDSIDE, PT WAS GIVEN MEDS TO HELP WITH PAIN AND RESTLESSNESS
--- NOTE | 2019-04-21 23:00 | NUR ---
PT REASSESSMENT COMPLETED AT THIS TIME, NO CHANGES NOTED, WILL CONT TO MONITOR FOR CHANGES IN PATIENT'S COND.
[2019-04-22] VITALS (109 sets, daily range): BP systolic 78–177; BP diastolic 49–110
--- NOTE | 2019-04-22 00:34 | NUR ---
PT WAS YELLING FOR BECAUSE HIS MOUTH WAS DRY, BIPAP WAS REMOVED AND PT'S MOUTH WAS SWABBED WITH GLYCERN SWABS, WHILE OFF BIPAP, PT SPO2 DECREASED TO 78%, PT WAS IMMEDIATELY PLACED BACK ON BIPAP AND SPO2 SLOWLY CAME UP TO 93%
--- NOTE | 2019-04-22 02:03 | NUR ---
PT YELLING OUT HELP, WHEN ASKED WHAT WAS WRONG, PT STATES HIS BACK IS KILLING HIM, PT MEDICATED WITH PAIN MEDICINE.
--- NOTE | 2019-04-22 03:00 | NUR ---
PT REASSESSMENT COMPLETED AT THIS TIME, PT RESTING MORE CALM, WILL CONT TO MONITOR FOR CHANGES
--- NOTE | 2019-04-22 04:38 | NUR ---
DR. RIBEIRO CALLED ABOUT ABG RESULTS, ORDERS GIVEN FOR INTUBATION AND MEDS
--- NOTE | 2019-04-22 04:54 | NUR ---
WHILE SETTING UP AND GETTING READY FOR ONCALL OF ANAESTHESIA TO INTUBATE, PT HR DROPPED AND PT LOST PULSE AND STOPPED BREATHING, CODE WAS CALLED, REFER TO CODE BLUE SHEET
--- NOTE | 2019-04-22 07:00 | NUR ---
REPORT RECEVIED FROM THE OFF GOING RN. SEE ASSESSMENT IN THE PTS FLOW SHEET. PT SEDATED AND ON THE VENTILATOR. SEE RT NOTES FOR VENT SETTINGS. SINUS TACH ON THE MONITOR. PT ON 1/2 NS AT 75ML/H, PROCALAMINE @ 50ML/H, DIPROVAN AT 45MCG/KG/MIN, LEVOPHED AT 7MG/MIN AND ZOFRAN AT 4.7ML/H. WILL TITRATE LEVOPHED OFF PER ORDERS. ALL IV MEDS INFUSING INTO A LEFT UPPER CHEST INFUSAPORT. PT NOTED TO HAVE LARGE BLOODY CLOTS COMING FROM HIS PENIS. A TOWEL WAS PLACED BETWEEN HIS LEGS WHICH IS SATURATED WITH URINE/CLOTS. DR ALCAZAR PAGED FOR FC PLACEMENT. WAITING FOR RESPONSE. WILL CONT POC.
--- NOTE | 2019-04-22 08:11 | NUR ---
DR KRUGER AT THE PTS BEDSIDE. OK TO PLACE OGT.
--- NOTE | 2019-04-22 09:22 | NUR ---
NUTRITION F/U PT REMAINS ON VENT. DIPRIVAN AT 36 CC/HR, PROCALAMINE AT 50 CC/HR. NURSING REPORTS OG TUBE PLACEMENT TODAY. RECOMMEND TRANSITION TO TUBE FEEDS. 1)PULMOCARE @15 CC/HR. 2)INCREASE 10 CC//HR Q 8 HOURS TOLERATED TO CURRENT GOAL RATE 35 CC/HR. 3)15 CC H2O FLUSH Q HOUR. WILL REQUIRE INCREASED TUBE FEED RATE DIPRIVAN RATE DECREASES. RD FOLLOWING
--- NOTE | 2019-04-22 09:26 | NUR ---
SPOKE WITH DR ALCAZAR, OK TO PLACE FC BUT DR ALCAZAR STATED DO NOT FORCE IT IN. NOTIFY IF UNABLE TO GET FC IN.
--- NOTE | 2019-04-22 10:05 | NUR ---
OGT PLACE WITH NO ISSUES. PLACEMENT CHECKED VIA A&A WITH SCANT AMOUNT OF GREEN SECREATIONS NOTED WITH ASPIRATION. FC PLACED WITH NO ISSUES. NO RESISTANCE MET. BLOODY URINE NOTED. PT TOLERATED WELL.
[2019-04-22 10:35] LABS: BASOPHILS 0.3 % (0-2); EOSINOPHILS 0.1 % (0-7); HEMATOCRIT 35.5 % (42.0-54.0); HEMOGLOBIN 11.4 g/dL (13.5-17.5); IMMATURE GRANULOCYTES 7.7 % (0-5); LYMPHOCYTES 6.3 % (15-50); MCH 31.7 pg (26.0-34.0); MCHC 32.1 g/dL (31.0-37.0); MEAN PLATELET VOLUME 12.1 fL (7.4-10.4); MONOCYTES 3.5 % (2-11); NEUTROPHILS 82.1 % (40-80); RDW 15.4 % (11.5-14.5)
[2019-04-22 10:36] LABS: MCV 98.6 fL (80.0-100.0); PLATELET COUNT 67 10x3/uL (130-400); WBC 9.5 10x3/uL (4.8-10.8)
[2019-04-22 10:45] LABS: ALBUMIN 3.3 g/dL (3.4-5.0); ANION GAP 19.6 mmol/L (8-16); BILIRUBIN - TOTAL 4.15 mg/dL (0.2-1.3); CALCIUM 8.2 mg/dL (8.5-10.1); CARBON DIOXIDE 21.5 mmol/L (21.0-32.0); PROTEIN - SERUM 4.9 g/dL (6.4-8.2)
[2019-04-22 10:56] LABS: CREATININE - SERUM 2.5 mg/dL (0.6-1.3); POTASSIUM - SERUM 5.1 mmol/L (3.5-5.1)
--- NOTE | 2019-04-22 11:43 | NUR ---
DR MONTE AT THE PTS BEDSIDE. DR MONTE STATES THAT HE WANTS TO BRONCH THE PT. JOSUÉ RAMON (SON) CALLED AND GAVE CONSENT VIA TELEPHONE. NO QUESTIONS ASKED AT THIS TIME. ELIANE ALVAREZ WITTNESSED CONSENT.
--- NOTE | 2019-04-22 12:16 | NUR ---
DR MONTE BRONCHED THE PT. PT TOLERATED WELL.
--- NOTE | 2019-04-22 13:33 | NUR ---
LEVOPHED TITRATED OFF.
[2019-04-22 13:42] LABS: EOS BF 2 %; NEUT - BF 38 %
--- NOTE | 2019-04-22 14:00 | NUR ---
PT RECEIVED A FULL CHD BED BATH AND LINEN CHANGED. PT TOLERATED WELL.
--- NOTE | 2019-04-22 15:35 | NUR ---
BP 78/49 (56) LEVOPHED INITATED PER ORDERS. SEE IV FLOW SHEET.
--- NOTE | 2019-04-22 15:52 | NUR ---
LEVOPHED OFF PER BP PARAMETERS. SEE IV FLOW SHEET.
--- NOTE | 2019-04-22 17:00 | NUR ---
VSS. WILL CONT POC.
--- NOTE | 2019-04-22 19:00 | NUR ---
PT ASSESSMENT COMPLETED AT THIS TIME, NO CHANGES FROM NURSE REPORT, VSS, WILL CONT. TO MONITOR
--- NOTE | 2019-04-22 21:00 | NUR ---
FAMILY AT BEDSIDE, UPDATED ON PATIENTS COND. NO CHANGES NOTED AT THIS TIME, WILL MONITOR FOR CHANGES
--- NOTE | 2019-04-22 23:00 | NUR ---
PT REASSESSMENT COMPLETED AT THIS TIME, NO CHANGES SEEN FROM PREVIOUS ASSESSMENT, WILL MONITOR FOR CHANGES
[2019-04-23] VITALS (49 sets, daily range): BP systolic 93–134; BP diastolic 52–76
--- NOTE | 2019-04-23 01:00 | NUR ---
PT SEDATED ON THE VENT, VSS, ATTEMPTING TO WEAN OF LEVOPHED, VSS, AT THIS TIME, WILL MONITOR FOR CHANGES
[2019-04-23 03:58] LABS: BASOPHILS 0.1 % (0-2); EOSINOPHILS 0 % (0-7); HEMATOCRIT 28.8 % (42.0-54.0); HEMOGLOBIN 9.8 g/dL (13.5-17.5); IMMATURE GRANULOCYTES 5.6 % (0-5); LYMPHOCYTES 2.9 % (15-50); MCH 31.9 pg (26.0-34.0); MEAN PLATELET VOLUME 11.7 fL (7.4-10.4); MONOCYTES 2.2 % (2-11); NEUTROPHILS 89.2 % (40-80); RBC 3.07 10x6/uL (4.20-6.10); RDW 14.9 % (11.5-14.5); WBC 8.3 10x3/uL (4.8-10.8)
[2019-04-23 04:20] LABS: MCV 93.8 fL (80.0-100.0); PLATELET COUNT 53 10x3/uL (130-400)
[2019-04-23 04:21] LABS: PLATELET ESTIMATE DECREASED
[2019-04-23 04:34] LABS: ANION GAP 13.7 mmol/L (8-16); CARBON DIOXIDE 23.5 mmol/L (21.0-32.0); CREATININE - SERUM 2.8 mg/dL (0.6-1.3); MAGNESIUM - SERUM 2.7 mg/dL (1.8-2.4)
[2019-04-23 04:36] LABS: POTASSIUM - SERUM 4.2 mmol/L (3.5-5.1)
--- NOTE | 2019-04-23 05:12 | NUR ---
PT GIVEN HCG WITH COMPLETE LINEN CHANGED
--- NOTE | 2019-04-23 07:00 | NUR ---
REPORT RECEVIED FROM THE OFF GOING RN. SEE ASSESSMENT IN THE PTS FLOW SHEET. PT SEDATED AND ON THE VENT. SEE RT NOTES FOR VENT SETTINGS. PT SINUS TACH ON THE MONITOR. VSS. 100% FIO2 O2 SAT 90%. OGT NOTED TO LIS WITH GREEN SECRETIONS NOTED. INFUSAPORT ACCESSED TO THE LEFT UPPER CHEST. SEE IV FLUIDS IN THE PTS FLOW SHEET. FC NOTED WITH RED TINGED URINE. CALL LIGHT IN REACH. WILL CONT POC.
--- NOTE | 2019-04-23 07:43 | NUR ---
DR VOICE SILVEIRA AND AT THE PTS BEDSIDE.
--- NOTE | 2019-04-23 08:20 | NUR ---
DR MYLES PAGED AND MADE AWARE OF CONSULT. SEE ORDERS.
--- NOTE | 2019-04-23 08:47 | NUR ---
RENAL TRANSACTIONAL PARALEGAL AT THE PTS BEDSIDE.
--- NOTE | 2019-04-23 09:00 | NUR ---
WHENEVER PT WAS TURNED, PT DESATED TO 85% AND TOOK ABOUT 5 MINS TO GET ABOVE 90%. VSS AT THIS TIME.
[2019-04-23 09:04] LABS: CREATININE - URINE 62.3 mg/dL (30-125)
[2019-04-23 10:14] LABS: APPEARANCE CLOUDY (CLEAR); COLOR AMBER (YELLOW)
[2019-04-23 10:16] LABS: BILIRUBIN NEGATIVE (NEGATIVE); GLUCOSE NEGATIVE (NEGATIVE); KETONE NEGATIVE (NEGATIVE); NITRITE NEGATIVE (NEGATIVE); PROTEIN 1+ mg/dL (NEGATIVE); SPECIFIC GRAVITY 1.015 (1.005-1.020); UROBILINOGEN NORMAL (NORMAL)
[2019-04-23 10:17] LABS: AMORPHOUS SEDIMENT >1+ /lpf (NONE SEEN); BACTERIA MODERATE /hpf (NEGATIVE); EPITHELIAL CELLS 0-5 /hpf (0-5); MUCUS >1+ /lpf (NONE SEEN); RED CELLS - URINE >50 /hpf (0-5); WHITE CELLS - URINE 0-5 /hpf (NEGATIVE)
--- NOTE | 2019-04-23 10:38 | NUR ---
DR PAGE AT THE PTS BEDSIDE.
--- NOTE | 2019-04-23 11:20 | NUR ---
DR MONTE AT THE PTS BEDSIDE. CONT POC.
--- NOTE | 2019-04-23 13:00 | NUR ---
PT VSS. ORAL CARE PROVIDED. WILL CONT POC.
--- NOTE | 2019-04-23 15:00 | NUR ---
REASSESSMENT COMPLETED. SEE FLOW SHEET.
[2019-04-23 15:50] LABS: ANION GAP 14.6 mmol/L (8-16); BILIRUBIN - TOTAL 4.36 mg/dL (0.2-1.3); CALCIUM 7.6 mg/dL (8.5-10.1); CARBON DIOXIDE 24.5 mmol/L (21.0-32.0); CREATININE - SERUM 3.1 mg/dL (0.6-1.3); POTASSIUM - SERUM 4.1 mmol/L (3.5-5.1); PROTEIN - SERUM 4.5 g/dL (6.4-8.2)
--- NOTE | 2019-04-23 18:00 | NUR ---
RENAL NOTIFIED ABOUT RECENT CMP RESULTS. SPOKE WITH DR DIAS. NO CHANGES.
[2019-04-23 18:08] LABS: AFB SPECIMEN PROCESSING Not Indicated (())
[2019-04-24] VITALS (72 sets, daily range): BP systolic 81–134; BP diastolic 46–73
--- NOTE | 2019-04-24 01:04 | NUR ---
SPOKE WITH NIECY GUTIERREZ APN ABOUT 'S DECISION FOR PATIENT TO BE A DNR. STATES THAT IS THE PATIENTS WISHES.
[2019-04-24 05:17] LABS: HEMATOCRIT 28.8 % (42.0-54.0); HEMOGLOBIN 10.5 g/dL (13.5-17.5); LYMPHOCYTES 2.1 % (15-50); MCH 34.5 pg (26.0-34.0); MCHC 36.5 g/dL (31.0-37.0); MCV 94.7 fL (80.0-100.0); MEAN PLATELET VOLUME 12.6 fL (7.4-10.4); NEUTROPHILS 93.7 % (40-80); PLATELET COUNT 60 10x3/uL (130-400); RBC 3.04 10x6/uL (4.20-6.10); RDW 15.3 % (11.5-14.5)
[2019-04-24 05:22] LABS: WBC 19.3 10x3/uL (4.8-10.8)
[2019-04-24 06:12] LABS: CREATININE - SERUM 3.6 mg/dL (0.6-1.3); MAGNESIUM - SERUM 2.9 mg/dL (1.8-2.4); PHOSPHOROUS 7.3 mg/dL (2.5-4.9); POTASSIUM - SERUM 5.2 mmol/L (3.5-5.1)
[2019-04-24 06:13] LABS: ANION GAP 18.7 mmol/L (8-16); CALCIUM 7.8 mg/dL (8.5-10.1); CARBON DIOXIDE 21.5 mmol/L (21.0-32.0)
[2019-04-24 06:15] LABS: ALBUMIN 3.2 g/dL (3.4-5.0); BILIRUBIN - TOTAL 4.42 mg/dL (0.2-1.3); PROTEIN - SERUM 4.9 g/dL (6.4-8.2); TRIGLYCERIDE 105.6 mg/dL (30-200); VANCOMYCIN - RANDOM 9.2 ug/mL (10.0-20.0)
--- NOTE | 2019-04-24 07:00 | NUR ---
SHIFT ASSESSMENT COMPLETED PT CARE ASSUMED. MONITORS ON AND WORKING, VITALS STABLE. FAMILY AT BEDSIDE, UPDATE PROVIDED, NO SIGNS/SYMPTOMS OF PAIN OR DISCOMFORT NOTED AT THIS TIME, SEE FLOW SHEET FOR FURTHER DETAILS. WILL CONTINUE TO OBSERVE.
--- NOTE | 2019-04-24 09:00 | NUR ---
0900 MEDS ADM WITHOUT DIFFICULTY. VSS NO NEW CHANGES LOKESH CONTINUE TO MONITOR
--- NOTE | 2019-04-24 11:00 | NUR ---
NO CHANGES, PT SEDATED ON VENT, DR MONTE AT BEDSIDE, MONITORS ON AND WORKING, FAMILY AT BEDSIDE, UPDATE PROVIDED, SEE FLOW SHEET FOR FURTHER DETAILS.
[2019-04-24 13:10] LABS: FUNGUS STAIN Final report (())
--- NOTE | 2019-04-24 13:10 | NUR ---
PHYSICIAN AT BEDSIDE NEW ORDERS RECEIVED
--- NOTE | 2019-04-24 15:00 | NUR ---
REASSESSMENT COMPLETE PER FLOW SHEET. VSS. NO NEW CHANGES. PT RESTING COMFORTABLY WILL CONTINUE TO MONITOR
--- NOTE | 2019-04-24 17:00 | NUR ---
FAMILY AT BEDSIDE. VSS. NO NEW CHANGES WILL CONTINUE TO MONITOR
--- NOTE | 2019-04-24 19:00 | NUR ---
REPORT RECEIVED FROM OFF GOING NURSE. PT IS LAYING IN BED INTUBATED AND SEDATED. NO NEEDS NOTED AT THIS TIME. NO SIGNS OF ACUTE DISTRESS. WILL CONTINUE TO MONITOR.
--- NOTE | 2019-04-24 19:10 | NUR ---
USED TRAIN OF FOUR, REACTION NOTED AT LEVEL 3.
--- NOTE | 2019-04-24 20:10 | NUR ---
REACTION NOTED WITH TRAIN OF FOUR AT LEVEL 2.
--- NOTE | 2019-04-24 21:00 | NUR ---
PT IS LAYING IN BED INTUBATED AND SEDATED AT THIS TIME. NO NEEDS NOTED. NO SIGNS OF ACUTE DISTRESS. WILL CONTINUE TO MONITOR.
--- NOTE | 2019-04-24 21:10 | NUR ---
USED TRAIN OF FOUR, REACTION NOTED AT LEVEL 2.
--- NOTE | 2019-04-24 22:00 | NUR ---
USED TRAIN OF FOUR, REACTION NOTED AT LEVEL 2.
--- NOTE | 2019-04-24 23:00 | NUR ---
REASSESSMENT COMPLETED, SEE FLOWSHEET FOR DETAILS. PT IS IN BED INTUBATED AND SEDATED. NO NEEDS NOTED. NO SIGNS OF ACUTE DISTRESS. WILL CONTINUE TO MONITOR CLOSELY.
--- NOTE | 2019-04-24 23:10 | NUR ---
USED TRAIN OF FOUR, REACTION NOTED AT LEVEL 2.
[2019-04-25] VITALS (79 sets, daily range): BP systolic 21–152; BP diastolic 12–73
--- NOTE | 2019-04-25 | NUR ---
USED TRAIN OF FOUR, REACTION NOTED AT LEVEL 2.
--- NOTE | 2019-04-25 01:00 | NUR ---
PT IS IN BED INTUBATED AND SEDATED. NO NEEDS NOTED. NO SIGNS OF ACUTE DISTRESS. WILL CONTINUE TO MONITOR.
--- NOTE | 2019-04-25 01:10 | NUR ---
USED TRAIN OF FOUR, REACTION NOTED AT LEVEL 2.
--- NOTE | 2019-04-25 02:00 | NUR ---
USED TRAIN OF FOUR, REACTION NOTED AT LEVEL 2.
--- NOTE | 2019-04-25 03:00 | NUR ---
REASSESSMENT COMPLETED, SEE FLOWSHEET FOR DETAILS. PT IS IN BED INTUBATED AND SEDATED. NO NEEDS NOTED AT THIS TIME. NO SIGNS OF ACUTE DISTRESS. WILL CONTINUE TO MONITOR.
--- NOTE | 2019-04-25 03:00 | NUR ---
REASSESSMENT COMPLETED, SEE FLOWSHEET FOR DETAILS. TRAIN OF FOUR USED, REACTION NOTED AT LEVEL 2. NO NEEDS NOTED AT THIS TIME. NO SIGNS OF ACUTE DISTRESS. WILL CONTINUE TO MONITOR.
--- NOTE | 2019-04-25 03:10 | NUR ---
USED TRAIN OF FOUR, REACTION NOTED AT LEVEL 2.
--- NOTE | 2019-04-25 04:00 | NUR ---
USED TRAIN OF FOUR, REACTION NOTED AT LEVEL 2.
[2019-04-25 04:30] LABS: HEMATOCRIT 31.4 % (42.0-54.0); HEMOGLOBIN 10.4 g/dL (13.5-17.5); MCH 31.8 pg (26.0-34.0); MCHC 33.1 g/dL (31.0-37.0); MEAN PLATELET VOLUME 12.8 fL (7.4-10.4); PLATELET COUNT 56 10x3/uL (130-400); RBC 3.27 10x6/uL (4.20-6.10); RDW 15.4 % (11.5-14.5); WBC 20.6 10x3/uL (4.8-10.8)
--- NOTE | 2019-04-25 05:00 | NUR ---
PT IS LAYING IN BED INTUBATED AND SEDATED. USED TRAIN OF FOUR, REACTION NOTED AT LEVEL 2. NO SIGNS OF ACUTE DISTRESS. WILL CONTINUE TO MONITOR.
[2019-04-25 05:40] LABS: LYMPHOCYTES 4 % (15-50); NEUTROPHILS 86 % (40-80); PLATELET ESTIMATE DECREASED; SMUDGE CELLS 1+
--- NOTE | 2019-04-25 06:00 | NUR ---
TRAIN OF FOUR USED, REACTION NOTED AT LEVEL 3.
[2019-04-25 06:19] LABS: CREATININE - SERUM 3.3 mg/dL (0.6-1.3); MAGNESIUM - SERUM 2.5 mg/dL (1.8-2.4); PHOSPHOROUS 7.6 mg/dL (2.5-4.9)
[2019-04-25 06:20] LABS: ANION GAP 22.9 mmol/L (8-16); CARBON DIOXIDE 18.8 mmol/L (21.0-32.0); POTASSIUM - SERUM 4.7 mmol/L (3.5-5.1)
[2019-04-25 06:21] LABS: ALBUMIN 2.5 g/dL (3.4-5.0); BILIRUBIN - TOTAL 3.82 mg/dL (0.2-1.3); PROTEIN - SERUM 3.6 g/dL (6.4-8.2); VANCOMYCIN - RANDOM 11.5 ug/mL (10.0-20.0)
[2019-04-25 09:22] LABS: ANION GAP 15.7 mmol/L (8-16); CALCIUM 7.3 mg/dL (8.5-10.1); CARBON DIOXIDE 22.9 mmol/L (21.0-32.0); CREATININE - SERUM 4.8 mg/dL (0.6-1.3)
[2019-04-25 09:23] LABS: POTASSIUM - SERUM 6.6 mmol/L (3.5-5.1)
--- NOTE | 2019-04-25 10:00 | NUR ---
OBTAINED CONSENT FOR TRIALYSIS CATHETER FROM PATIENTS SONJOSUÉ, OVER PHONE.
--- NOTE | 2019-04-25 10:40 | NUR ---
RIGHT IJ TRIALYSIS CATHETER INSERTED BY DR. PRYOR AT THIS TIME. BED POSITION REMAINED UNCHANGED DURING PROCEDURE. STAT CHEST XRAY ORDERED.
--- NOTE | 2019-04-25 11:55 | NUR ---
CALLED DIALYSIS NURSE TO INFORM PATIENT IS READY TO DIALYZE AND NEEDS TO BE A PRIORITY WITH POTASSIUM LEVEL OF 7.1
--- NOTE | 2019-04-25 12:33 | NUR ---
MORENITA YOUNG FOR NEPHRO, NOTIFIED ABOUT POTASSIUM LEVEL.
--- NOTE | 2019-04-25 12:49 | NUR ---
NOTIFIED DR. MONTE OF [facility]. NO ORDERS
--- NOTE | 2019-04-25 13:11 | NUR ---
DR MYLES AT THE PTS BEDSIDE. BP 65/41. INCRASED LEVOPHED TO 30MCG/KG/MIN.
--- NOTE | 2019-04-25 13:14 | NUR ---
DR SHAMEKA ABERNATHY CONSULT FOR KAREN PLACEMENT. DR KETTY HILLMAN.
--- NOTE | 2019-04-25 14:15 | NUR ---
ART LINE PLACED BY DR. HDEZ AND DR. BURNETT TO RIGHT GROIN. PRESSURE CORRELATES WITH CUFF PRESSURE.
--- NOTE | 2019-04-25 14:32 | NUR ---
Nutrition Follow-up: Pt remains intubated. Receiving Procalamine @ 50. Trialysis catheter placed; to start dialysis. Discussed inadequate nutrition in IDT. Diet: NPO Wt: 296# Last BM: 04/22 per chart Labs noted: K+ 7.1, Na 130, GFR 12, Glu 344, Ca 7.3, PO4 7.6, Mg 2.5, Alb 2.5, Billie 197, Lip 2064, elevated LFTs Meds noted: Bumex, Diprivan, Solumedrol, Albumin, Humalog -Pt with severe malnutrition of acute illness R/T pancreatitis AEB: 1. energy intake <=50% intake of est energy needs for >=5 days; nutrition support being provided inadequate. 2. 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 -Rec initiate TPN; consult RD for recs. -RD following.
--- NOTE | 2019-04-25 15:36 | NUR ---
TRAIN OF FOUR IS 4 OUT OF 4 CURRENTLY. INCREASED RATE TO 0.8MCG/KG/MIN FROM 0.05. INITIAL DOSE WAS INCORRECT. WILL CONTINUE TO TITRATE TILL 1 OUT OF 4 IS ACHIEVED.
--- NOTE | 2019-04-25 17:00 | NUR ---
RECHECKED TRAIN OF 4. GETTING NOW MOVEMENT FROM STIMULATION--TITRATED VECORONIUM DRIP DOWN FROM 1MCG/KG/MIN TO .5. WILL CONTINUE TO ASSESS
--- NOTE | 2019-04-25 19:00 | NUR ---
REPORT RECEIVED, SHIFT ASSESSMENT COMPLETE PER FLOW SHEET, PT SEDATED ON VENT PER RT ORDERS, UNRESPONSIVE TO STEMULI, TRAIN OF FOUR AT 10 CHECKED WITH NO RESPONSE, DAY SHIFT RN TITRATED VECORONIUM TO 0.25 MCG/MG/MIN, RIGHT FEMORAL ART LINE ZEROED, LABILE B/P WITH ART AND NIBP, TITRATED LEVOPHED PER ORDERS, RT IJ TRIALYSIS CATH SALINE LOCKED, LEFT UPPER CHEST IMPLANTED PORT PATENT, DRSG C/D/I, THAYER CATH TO GRAVITY BAG SECURED, DARK URINE WITH SEDIMENT NOTED, BILAT SCD'S IN PLACE, 1909: TRAIN OF FOUR RECHECKED WITH NO REPONSE FROM PT, PROPOFOL PAUSED AND FENTANYL TITRATED TO 100MCG/HR, SBP ON ART LINE AND NIBP LABILE
--- NOTE | 2019-04-25 20:00 | NUR ---
FAMILY AT BEDSIDE, UPDATE GIVEN, QUESTIONS ANSWERED, NO NEEDS STATED FROM FAMILY AT THIS TIME
--- NOTE | 2019-04-25 20:30 | NUR ---
PT ART LINE AND NIBP PRESSURES LABILE, TITRATING LEVOPHED TO KEEP MAP 60-65 PER NEPHROLOGY NOTE, SBP IN 80'S WITH MAP 57-62, OTHER V/S HR:110, RR:30, SPO2% 87-90%, WILL CONTINUE TO MONITOR
--- NOTE | 2019-04-25 21:15 | NUR ---
DR.GERSCH HILLMAN R/T TANK B/P
--- NOTE | 2019-04-25 21:21 | NUR ---
CALLED CVICU, UPDATE GIVEN, INFORMED OF LABILE B/P, ORDERS RECEIVED TO START VASOPRESSIN IF SBP 80 OR BELOW @ SET RATE OF 0.4 UNITS/MIN, ORDERS REPEATED BACK TO , NO FURTHER AT THIS TIME, WILL CONTINUE TO ASSESS
--- NOTE | 2019-04-25 22:17 | NUR ---
NIECY WHITTAKER APRN CALLED, UPDATED AND NOTIFIED OF PT STATUS, PT ASYSTOLE ON CM, VERIFIED BY BOTH ICU AND CVICU CHARG NURSES, NIECY WHITTAKER APRN STATED HE WILL CALL AND UPDATE
--- NOTE | 2019-04-25 22:26 | NUR ---
AT BEDSIDE, PRONOUNCED TIME 2227, RECORD OF SIGNED AND IN PT CHART
--- NOTE | 2019-04-25 22:45 | NUR ---
FAMILY AND SPOUSE AT BEDSIDE, RN INFORMED FAMILY OF EVENTS PRIOR TO PT , QUESTIONS ANSWERED, FAMILY GIVEN TIME WITH PT, PT BELONGINGS GIVEN TO SON, RECORD OF PAPER SIGNED BY SON JOSUÉ RAMON, NO FURTHER NEEDS AT THIS TIME.
--- NOTE | 2019-04-26 18:16 | MORECARE ---
CASE MANAGEMENT DISCHARGE SUMMARY PATIENT: JOSUÉ RAMON UNIT: [id number] ADM DATE: 04/09/19 AGE: 84 : 34 SEX: M ROOM/BED: [facility] AUTHOR: DARRENDOC PHYSICIAN: REFERRING PHYSICIAN: MARK TELLEZ MD DATE OF SERVICE: 04/26/19 Discharge Plan Patient Name: JOSUÉ RAMON Facility: [facility]:[place] : 1935 Planned Disposition: Home Anticipated Discharge Date: Discharge Date: 04/25/2019 Expected LOS: Initial Reviewer: [email or web address] Initial Review Date: 04/10/2019 Generated: 04/26/19 7:16 pm DCP- Discharge Planning Updated by [email or web address]: Cyndie Centeno on 04/12/19 11:[address] I received an email from patient's family member, Josi Evans, concerning patient's condition. I met with patient and he states it is ok to give her information. Kylee (family member) is in the room speaking with Celeste Lira and questions answered. I called Josi ([phone]) and left my phone number if she has further questions and also informed her that her family member (Kylee) may be able to answer questions for her as well. CM will continue to follow and assist with discharge planning/needs. DCP- Discharge Planning Updated by [email or web address]: Cyndie Centeno on 04/10/19 1:[address] Patient Name: JOSUÉ RAMON Admission Status: ER Accout number: [id number] Admission Date: 04-09-2019 : 1935 Admission Diagnosis: Attending: MARK TELLEZ Current LOS: 1 Anticipated DC Date: Planned Disposition: Home Primary Insurance: MEDICARE A & B Discharge Planning Comments: CM met with patient to complete initial dc planning assessment. CM educated patient on the CM role and verbal consent given by patient to complete assessment. Patient lives at home with his and son. States he uses a cane for ambulation, or a walker if out shopping, otherwise is independent with ADL's and AIDL's. At discharge patient plans to return and feels this is a safe discharge. CM discussed availability of home health, rehab services, and medical equipment. Patient denied known discharge needs at this time. CM will continue to follow and will assist as needed with dc plans/needs. Medical Biller Coder: Cyndie Centeno DCPIA - Discharge Planning Initial Assessment Updated by [id number]: Cyndie Centeno on 04/10/19 2:30 pm * Is the patient Alert and Oriented? Yes * How many steps to enter\exit or inside your home? 0/1 flight * PCP Dr. Mariee * Pharmacy [facility] [address] * Preadmission Environment Home with Family * ADLs Partial Dependent * Partial ADLs (Assistance needed) Ambulation * Equipment Cane Nebulizer Walker * List name and contact numbers for known caregivers / representatives who currently or will assist patient after discharge: Adele Perez [facility] - [phone] * Verbal permission to speak to the caregivers and representatives has been obtained from the patient. Yes * Community resources currently utilized None * Please name any agencies selected above. DME for nebulizer - [facility] * Additional services required to return to the preadmission environment? No * Can the patient safely return to the preadmission environment? Yes * Has this patient been hospitalized within the prior 30 days at any hospital? No Last DP export: 04/12/19 11:12 a Patient Name: JOSUÉ RAMON Page [id number] at 1816 All edits/amendments must be made on the electronic document DICTATION DATE: 04/26/191815 PHARMACOLOGY ASSOCIATE: NERI 04/26/191815 RPT#: [id number] DC DATE:04/25/19 STATUS: DIS IN [facility] [address] [place] [address] END OF REPORT
--- NOTE | 2019-04-29 16:15 | NUR ---
Per CMS protocol, restraint report logged into data base.
--- NOTE | 2019-05-02 13:49 | OP ---
PATIENT NAME: JOSUÉ RAMON MEDICAL RECORD: [id number] :33 LOCATION:D.CVI D.CV06 ADMISSION DATE:04/09/19 SURGEON: JOSELYN PRYOR MD DATE OF OPERATION: 04/25/2019 PREOPERATIVE DIAGNOSES: 1. Acute renal failure. 2. Hyperkalemia. 3. Acute respiratory failure. 4. Bilateral pneumonia. 5. Sepsis. POSTOPERATIVE DIAGNOSES: 1. Acute renal failure. 2. Hyperkalemia. 3. Acute respitory failure. 4. Bilateral pneumonia. 5. Sepsis. PROCEDURE: Right IJ Trialysis catheter placement. SURGEON: Joselyn Pryor MD REPORT OF PROCEDURE: The patient's right neck was prepped and draped in sterile fashion. Using ultrasound guidance, a needle was used to cannulate the right internal jugular vein and a guidewire was advanced with ease. Skin incision was made with an 11 blade. Dilator was placed over the wire. This was followed by the Trialysis catheter. The catheter aspirated nonpulsatile dark blood and flushed easily in all 3 ports. This was sutured into place with 3-0 nylon and dressed appropriately. COMPLICATIONS: None. CONDITION: Fair. ANESTHESIA: General endotracheal. BLOOD LOSS: Minimal. Procedure was done in the ICU at the bedside. TRANSINT:[id number] Voice Confirmation ID: [id number] DOCUMENT ID: [id number] JOSELYN PRYOR MD at 1349 CC: [id number] DICTATION DATE: 04/25/19 1025 BURGLAR ALARM SUPERINTENDENT: 04/25/19 1047 DIS IN 04/25/19 [id number] [place] [address]
[2019-05-20 09:08] LABS: FUNGUS MYCOLOGY CULTURE Final report (())
[2019-06-14 12:09] LABS: ACID FAST CULTURE Negative (()); ACID FAST SMEAR Negative (())
== END 2019-04-25 22:28 | DRG 207 ==
LOC: D.ER 20:38 → D.ICU 04-09 00:09 → D.MS 04-09 00:09 → D.CVICU 04-09 00:09 → D.ICU 04-16 10:36 → D.CVICU 04-16 14:50
PROVIDERS: Emergency Medicine; Family Medicine; Internal Medicine; Internal Medicine Gastroenterology; Internal Medicine Nephrology; Internal Medicine Pulmonary Disease; ADMIT Family Medicine; ATTEND Family Medicine
PROC: 4A12XM4 Monitoring of Cardiac Stress, External Approach (ICD-10-PCS; 2019-04-09)
PROC: 0TP98DZ Removal of Intraluminal Device from Ureter, Via Natural or Artificial Opening Endoscopic (ICD-10-PCS; 2019-04-18)
PROC: 0T764DZ Dilation of Right Ureter with Intraluminal Device, Percutaneous Endoscopic Approach (ICD-10-PCS; 2019-04-18)
PROC: 0B9F8ZX Drainage of Right Lower Lung Lobe, Via Natural or Artificial Opening Endoscopic, Diagnostic (ICD-10-PCS; 2019-04-18)
PROC: 5A1955Z Respiratory Ventilation, Greater than 96 Consecutive Hours (ICD-10-PCS; principal; 2019-04-22)
PROC: 0B9F8ZX Drainage of Right Lower Lung Lobe, Via Natural or Artificial Opening Endoscopic, Diagnostic (ICD-10-PCS; 2019-04-22)
PROC: 05HM33Z Insertion of Infusion Device into Right Internal Jugular Vein, Percutaneous Approach (ICD-10-PCS; 2019-04-25)
DX: J18.9 Pneumonia, unspecified organism (principal); J96.01 Acute respiratory failure with hypoxia; K85.90 Acute pancreatitis without necrosis or infection, unspecified; N17.0 Acute kidney failure with tubular necrosis; A41.9 Sepsis, unspecified organism; J44.0 Chronic obstructive pulmonary disease with (acute) lower respiratory infection; I13.0 Hypertensive heart and chronic kidney disease with heart failure and stage 1 through stage 4 chronic kidney disease, or unspecified chronic kidney disease; K56.7 Ileus, unspecified; N13.30 Unspecified hydronephrosis; D64.9 Anemia, unspecified; D70.1 Agranulocytosis secondary to cancer chemotherapy; I25.10 Atherosclerotic heart disease of native coronary artery without angina pectoris; I50.9 Heart failure, unspecified; N18.9 Chronic kidney disease, unspecified; E11.65 Type 2 diabetes mellitus with hyperglycemia; E66.9 Obesity, unspecified; I25.2 Old myocardial infarction; E11.43 Type 2 diabetes mellitus with diabetic autonomic (poly)neuropathy; K31.84 Gastroparesis